=== PATIENT | male | born 1985 | race Two or more races ===

== ENCOUNTER 2024-03-09 18:08 | Emergency (ER) | payer BC, OTHER, SELFPAY ==
[2024-03-09 18:39] VITALS: BP 117/69; PULSE 74; RESP 18; TEMP 36.8; O2SAT 95; BMI 30.7
--- NOTE | 2024-03-09 18:56 | PD.EDRME ---
Rapid Medical Screening Exam [facility] Arrival date/time: 03/09/24 18:08 38M with history of alcoholic cirrhosis presents to ED with first-time paracentesis. Chief Complaint: Abdominal Pain Time Seen by Provider: 03/09/24 18:53 Vital signs: Vital Signs Temperature 98.3 F 03/09/24 18:39 Pulse Rate 74 03/09/24 18:39 Respiratory Rate 18 03/09/24 18:39 Blood Pressure 117/69 03/09/24 18:39 Pulse Oximetry (%) 95 03/09/24 18:39 Oxygen Delivery Method Room Air 03/09/24 18:39
== END 2024-03-09 19:09 | disposition left against medical advice (07) ==
LOC: SERX 19:08
PROVIDERS: Emergency Provider Emergency Medicine
DX: R10.9 Unspecified abdominal pain (principal); Z53.29 Procedure and treatment not carried out because of patient's decision for other reasons
CPT/HCPCS: 99281

== ENCOUNTER 2024-03-10 08:31 | Inpatient (IN) | payer MEDICAID, SELFPAY ==
[2024-03-10] VITALS (16 sets, daily range): BP systolic 105–132; BP diastolic 56–78; PULSE 69–90; RESP 16–97; TEMP 36.6–37.2; O2SAT 91–98; BMI 30.7; BMI 27.5
--- NOTE | 2024-03-10 08:44 | XR_ITS ---
Examination: Ultrasound-guided paracentesis Abdominal sonogram limited Date and time of exam: March 10, 2024 1147 hours INDICATIONS: Cirrhosis, increasing ascites and abdominal distention this week Informed consent provided. A timeout was completed verifying correct patient, procedure, site, positioning, and special adequate movement if applicable. Technique: Multiple sonographic images of the abdomen have been obtained. Appropriate area for paracentesis was marked. Local anesthesia is obtained with 1% lidocaine. Yueh catheter is successfully introduced. Findings: Abdominal sonographic images demonstrate sufficient ascitic fluid for paracentesis. After placing the Yueh catheter, 8600 cc of fluid were successfully removed. During and after completion of the procedure the patient appear in satisfactory and stable condition with no complications observed. Estimated blood loss 0 cc Impression: Abdominal ascites Successful ultrasound-guided paracentesis as described above
--- NOTE | 2024-03-10 08:44 | PD.EDRME ---
Rapid Medical Screening Exam [facility] Arrival date/time: 03/10/24 08:31 38-year-old male with a history of alcoholic liver cirrhosis presents to the emergency room with a chief complaint of shortness of breath, abdominal distention, and generalized swelling x 3 weeks. Patient states he has never had a paracentesis. Chief Complaint: Abdominal Pain Time Seen by Provider: 03/10/24 08:35 Vital signs reviewed by provider: Yes
--- NOTE | 2024-03-10 09:27 | XR_ITS ---
Examination: CT chest with intravenous contrast CT abdomen with intravenous contrast CT pelvis with intravenous contrast 2-D coronal and sagittal reconstructions Time of exam: March 10, 2024 1153 hours INDICATIONS: Chest pain shortness of breath abdominal pain and distention one week CTDI: vol (mGy) : 7.90 DLP: (mGycm): 643 Technique: Multiple axial images of the chest, abdomen and pelvis with intravenous contrast, 3.0 mm slice thickness. Images obtained post intravenous injection Isovue 370 60 cc. 2-D sagittal and coronal reconstructions. Low dose protocols were performed. One or more of the following dose reduction techniques were used; automated exposure control, adjustment of the mA and/or KV according to patient size, use of iterative reconstruction technique. Findings: No thoracic aortic aneurysmal dilatation Pulmonary artery segments are not enlarged. No paratracheal tracheobronchial or bronchopulmonary adenopathy. 4 mm pulmonary nodule right upper lobe image 155 5 mm pulmonary nodule right middle lobe image 176 Significant pneumonia left base. No pulmonary edema Cirrhosis, liver markedly lobular in contour Multiple esophageal varices Perigastric varices Marked splenomegaly with portosystemic collateral vessels medial to the spleen Prominent ascites No pancreatic mass No hydronephrosis Aorta normal size Wall thickening involving small bowel loops Surgical clips right lower abdomen Appendix is not visualized Colonic diverticulosis Wall thickening of the colon No bowel obstruction No prostatomegaly No bladder mass Mild osteopenia IMPRESSION: Noncalcified pulmonary nodules as above, with this study as baseline recommend 6 month follow-up CT chest without contrast Significant left base pneumonia Cirrhosis. Esophageal varices, perigastric varices Prominent ascites Hepatic colopathy, hepatic enteropathy No bowel obstruction
--- NOTE | 2024-03-10 09:30 | PD.EDABDPN ---
ED Abdominal Pain RME/HPI General Chief Complaint: Abdominal Pain Stated complaint: ASCITES; SENT BY [facility] FOR PARACENTISIS Time seen by provider: 03/10/24 08:35 Arrival date/time: 03/10/24 08:31 RME / HPI RME / HPI narrative: 03/10/24 08:31 38-year-old male with a history of alcoholic liver cirrhosis presents to the emergency room with a chief complaint of shortness of breath, abdominal distention, and generalized swelling x 3 weeks. Patient states he has never had a paracentesis. This section includes all my notes and documentations, including HPI, PE, and ED course.? Jesus Carrera MD HPI: 38 year old male who was recently diagnosed with liver cirrhosis 3 weeks ago presents to the ED for complaint of worsening abdominal pain and distention. Accompanied by leg swelling and dyspnea. Has consulted with his PCP at [facility] who diagnosed him with liver cirrhosis and is pending referral to see a liver specialist. Patient denies undergoing any procedures or starting medications since being diagnosed with liver cirrhosis. Denies fevers or chills, chest pain, cough, vomiting, diarrhea, or urinary symptoms. No alcohol for about a month. No other complaints. ROS: All negative except as documented in HPI. Physical Exam: General:? Alert and oriented.? No acute distress when remaining still.?? Eyes:? Conjunctivae and lids clear.? ENT:? No nasal congestion.? Neck:? Supple.? No JVD. Heart:? RRR.? Lungs:? No respiratory distress.? Good air movement with scattered Rales. Abdomen:? Soft and nontender.??Distention noted. No rebound or guarding. Legs:? No clubbing, cyanosis, edema.? Skin:? Warm and dry.?? Neuro:? Alert and oriented X 3.?? I reviewed all diagnostic test results. My review of the CT report is?significant left base pneumonia, cirrhosis, esophageal varices, perigastric varices, prominent ascites Blood tests remarkable for INR 1.9, T. bili 5.7, D bili 3.1. At this point, diagnoses include?Cirrhosis, ascites, pneumonia. Treatment here included?paracentesis, Rocephin, and Zithromax. Some improvement noted. I discussed the case with our GI and hospitalist.? About the presentation and exam and diagnostics and treatments here.? And need of further care in the hospital.? Will accept the patient. Jesus Carrera MD Related Data Previous Rx's ?Medication ?Instructions ?Recorded ibuprofen 800 mg tablet 800 mg PO TID PRN pain #30 tabs 09/27/22 Allergies Allergy/AdvReac Type Severity Reaction Status Date / Time NKA Allergy Unknown Uncoded 03/10/24 08:33 Review of Systems Review of Systems Systems Reviewed: All systems reviewed, normal except as documented Past Medical History Past Medical History CARDIAC: Positive Edema GASTROINTESTINAL: Positive Gastrointestinal Disorders Social History SMOKING STATUS: Never smoker ED Exam Narrative Physical exam: As noted in HPI Course Quality Measures none Orders Category Date Time Status Admit to Inpatient Status Routine Admission 03/10/24 16:05 Active Patient Condition Routine Admission 03/10/24 16:05 Ordered COVID-19 Screening Questionnaire NOW Care 03/10/24 15:[address] Screening NOW Care 03/10/24 09:27 Active Decision to Admit X1 Care 03/10/24 15:40 Completed Intake and Output QSHIFT Care 03/10/24 16:15 Ordered Miscellaneous Nursing Order NOW Care 03/10/24 16:05 Active Notify provider NEEDED Care 03/10/24 16:05 Active Obtain weight NOW Care 03/10/24 16:05 Active Saline [Insert IV] NOW Care 03/10/24 09:27 Active Sequential Compression Device QSHIFT Care 03/10/24 16:05 Active Consult to Gastroenterology Stat Cons 03/10/24 15:[address] chest abdomen pelvis w Stat Exams 03/10/24 09:27 Completed US paracentesis abd w/image Stat Exams 03/10/24 08:44 Taken Amylase Stat Lab 03/10/24 09:54 Completed BMP [Basic Metabolic Panel] Stat Lab 03/10/24 09:54 Completed BNP [B-Type Natriuretic Peptide] Stat Lab 03/10/24 09:54 Completed Basic Metabolic Panel AM DRAW Lab 03/11/24 05:00 Ordered Basic Metabolic Panel AM DRAW Lab 03/12/24 05:00 Ordered Basic Metabolic Panel AM DRAW Lab 03/13/24 05:00 Ordered CBC AM DRAW Lab 03/11/24 05:00 Ordered CBC AM DRAW Lab 03/12/24 05:00 Ordered CBC AM DRAW Lab 03/13/24 05:00 Ordered CBC Stat Lab 03/10/24 09:54 Completed Lipase Stat Lab 03/10/24 09:54 Completed Lipid Panel AM DRAW Lab 03/11/24 05:00 Ordered Liver Panel AM DRAW Lab 03/11/24 05:00 Ordered Liver Panel Stat Lab 03/10/24 09:54 Completed Magnesium AM DRAW Lab 03/11/24 05:00 Ordered Magnesium Stat Lab 03/10/24 09:54 Completed PT [Prothrombin Time with INR] Stat Lab 03/10/24 09:54 Completed PTT [Partial Thromboplastin Time] Stat Lab 03/10/24 09:54 Completed Phosphorous AM DRAW Lab 03/11/24 05:00 Ordered Prothrombin Time with INR AM DRAW Lab 03/11/24 05:00 Ordered Thyroid Stimulating Hormone AM DRAW Lab 03/11/24 05:00 Ordered Urinalysis Routine Lab 03/10/24 16:05 Ordered Acetaminophen Tab [Tylenol Tab] Med 03/10/24 16:04 Active 650 mg PO Q6H PRN Azithromycin Inj [Zithromax Inj] 500 mg Med 03/10/24 13:11 Discontinued Sodium Chloride 0.9% 250 ml [Ns] 250 ml IV X1 Lactulose Syrup [Enulose Syrup] Med 03/10/24 22:00 Active 20 gm PO TID Lidocaine 1% Pf 30 ml [Xylocaine 1% Pf 30 ml] Med 03/10/24 13:20 Discontinued 30 ml .ROUTE .STK-MED ONE Ondansetron Inj [Zofran Inj] Med 03/10/24 16:04 Active 4 mg IV Q6H PRN Pantoprazole Inj [Protonix Inj] Med 03/11/24 09:00 Active 40 mg IVP QDAY cefTRIAXone [Rocephin] 1,000 mg Med 03/10/24 13:11 Discontinued Sodium Chloride 0.9% (P) [Ns 0.9% (P)] 50 ml IV X1 cefTRIAXone/D5w 1gm IV premix [Rocephin/D5w 1gm IV Med 03/10/24 16:08 Discontinued premix] 50 ml IV QDAY Code Status Routine Oth 03/10/24 16:04 Ordered Oxygen Delivery DAILY RT 03/10/24 16:05 Active Vital Signs Vital signs: Vital Signs Temperature 99.0 F 01/30/25 08:46 Pulse Rate 70 03/10/24 08:46 Respiratory Rate 18 03/10/24 08:46 Blood Pressure 118/73 03/10/24 08:46 Pulse Oximetry (%) 95 03/10/24 08:46 Oxygen Delivery Method Room Air 03/10/24 08:46 Pulse ox is 95% on room air which is adequate. Abdominal Pain MDM MDM Narrative MDM Narrative:: Apple Victor am scribing for and in the presence of Dr. Carrera. Patient data External records reviewed:: [facility] previous records (I reviewed ED visit on 09/27/2022) Clinical information provided by:: patient Social determinants that could affect healthcare access:: alcohol use (Former heavy alcohol use, last drank 1 month ago ) Patient has the following chronic illnesses:: Recent diagnosed with liver cirrhosis How is presenting disease/condition affected by chronic disease/condition?: exacerbated by Evaluation data The following diagnostics were reviewed and interpreted by me:: lab results and radiology exam(s) Lab and/or radiology exams considered but not ordered:: None Interpretation Summary: My review of the CT report is?significant left base pneumonia, cirrhosis, esophageal varices, perigastric varices, prominent ascites Medications / Prescriptions Medications or Prescriptions considered but not ordered:: None Medication administrations:: Medication Administration History Acetaminophen (Acetaminophen 325 Mg Tablet) 650 mg PO Q6H PRN PRN Reason: PAIN OR FEVER > 101 Stop: 04/09/24 16:03 Lactulose (Lactulose Syrup 20 Gm/30 Ml Udc) 20 gm PO TID LEBRON; Protocol Stop: 04/09/24 21:59 Ondansetron HCl (Ondansetron Inj 2 Mg/Ml Inj 2 Ml) 4 mg IV Q6H PRN; Protocol PRN Reason: NAUSEA OR VOMITING Stop: 04/09/24 16:03 Pantoprazole Sodium (Pantoprazole Inj 40 Mg Vial) 40 mg IVP QDAY LEBRON Stop: 04/10/24 08:59 Discontinued Medications Ceftriaxone Sodium 1,000 mg/ (Sodium Chloride) 50 mls @ 100 mls/hr IV X1 ONE Stop: 03/10/24 13:40 Last Infusion: 03/10/24 16:01 Dose: Infused Documented By: Admin: 03/10/24 15:17 Dose: 100 mls/hr Documented By: CAROL Azithromycin 500 mg/ Sodium (Chloride) 250 mls @ 250 mls/hr IV X1 ONE Stop: 03/10/24 14:10 Last Admin: 03/10/24 16:01 Dose: 250 mls/hr Documented By: CAROL Ceftriaxone Sodium/Dextrose (Rocephin/D5w 1gm Iv Premix) 50 mls @ 100 mls/hr IV QDAY LEBRON Stop: 03/17/24 16:07 Lidocaine HCl (Lidocaine Inj Pf 1% 30 Ml Vial) Confirm Administered Dose 30 ml .ROUTE .STK-MED ONE Stop: 03/10/24 13:21 Rocephin and Zithromax Consultations Consultation(s) initiated? (list below): Yes Consultation #1 (Physician, Specialty, Details): I spoke with GI Dr. Valdovinos who agrees to consult. Diagnosis Differential diagnosis abdominal pain: acute appendicitis, calculus of kidney, constipation, diverticulitis, gastroenteritis, pancreatitis, small bowel obstruction and other (Ascites, cirrhosis) Most likely diagnosis given after review of the tests above:: Cirrhosis Ascites Pneumonia Admission Indicated Admission indicated?: indicated Explain why admission is indicated or not indicated:: Cirrhosis and ascites and pneumonia Admission Request Was there a request for admission?: Yes Admission Attestation Admission request attestation: Discussed case with Hospitalist service regarding admission. Discussed patients ED course, exam findings, labs, and radiology results. The Hospitalist [agrees,declines] to accept the patient for admission. Disposition Plan Disposition Plan: Admit Discharge Plan Plan Patient Disposition: Admit Acute Care w/in Hospital Prescriptions/Referrals Prescriptions/Med Rec: No Action ibuprofen 800 mg tablet 800 mg PO TID PRN (Reason: pain) Qty: 30 0RF Referrals: Jett Marc PA-C [Primary Care Provider] - In 1 week Problem List Clinical Impression: Cirrhosis, Ascites, Pneumonia Patient/Caregiver Discharge Instructions Education Materials: Paracentesis Dc Print Language: Yi Stand Alone Forms: Nicolette Award Info., Patient Portal Info Letter
[2024-03-10 10:13] LABS: Basophils # (Auto) 0.1 Thou/mm3 (0.0-0.2); Basophils % (Auto) 1 % (0-2.5); Eosinophils # (Auto) 0.2 Thou/mm3 (0.0-0.5); Eosinophils % (Auto) 3 % (0-10); Hematocrit 37.1 % (41.0-53.0); Hemoglobin 12.7 g/dL (13.5-16.0); Immature Granulocytes % (Auto) 0 % (0-0); Immature Granulocytes Auto 0.01 Thou/mm3 (0.00-0.00); Lymphocytes # (Auto) 0.9 Thou/mm3 (1.0-4.8); Lymphocytes % (Auto) 15 % (10-50); Mean Corpuscular HGB Conc 34.2 g/dl (31.0-37.0); Mean Corpuscular Hemoglobin 33.3 pg (25.0-35.0); Mean Corpuscular Volume 97 fL (80-100); Monocytes # (Auto) 0.5 Thou/mm3 (0.0-0.8); Monocytes % (Auto) 9 % (0-12); Neutrophils # (Auto) 4.3 Thou/mm3 (1.8-7.7); Neutrophils % (Auto) 72 % (37-80); Nucleated Red Blood Cell % 0 /100 WBC (0); RDW Standard Deviation 56.9 fL (35.1-43.9); Red Blood Count 3.81 Miln/mm3 (4.50-5.90)
[2024-03-10 10:14] LABS: Platelet Count 68 Thou/mm3 (140-440)
--- NOTE | 2024-03-10 10:18 | PC.NURSE ---
Patient presents to ED with c/o RUQ abd pain and swelling with some difficulty breathing with ambulation x4days. Patient was seen by PCP at [facility] and was sent for further evaluation. Patient with spouse, ambulates without assist, abd distended, soft and round with bowel sounds x4. 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
[2024-03-10 10:26] LABS: INR 1.9 (0.9-1.3); Partial Thromboplastin Time 33.2 Seconds (22.0-36.0); Prothrombin Time 19.4 Seconds (9.0-12.2)
[2024-03-10 10:32] LABS: B-Type Natriuretic Peptide 39 pg/mL (0-100)
[2024-03-10 10:42] LABS: Alanine Aminotransferase 29 U/L (10-49); Albumin, Serum 2.7 gm/dL (3.5-5.0); Alkaline Phosphatase 129 U/L (46-116); Amylase 73 U/L (30-118); Anion Gap 8 (7-16); Aspartate Amino Transferase 56 U/L (0-34); BUN/Creatinine Ratio 12 Ratio (12-20); Bilirubin,Direct 3.1 mg/dL (0.0-0.3); Bilirubin,Total 5.7 mg/dL (0.3-1.2); Blood Urea Nitrogen 6 mg/dL (9-23); Calcium 8.1 mg/dL (8.3-10.6); Carbon Dioxide 25.8 mMol/L (20.0-31.0); Chloride 101 mMol/L (98-107); Creatinine (Component) 0.5 mg/dL (0.6-1.3); Estimated Creatinine Clearance 210.2 mL/min (>60); Glucose 86 mg/dL (74-106); Lipase 49 U/L (12-53); Magnesium 1.8 mg/dL (1.6-2.6); Osmolality,Calculated 266 (275-295); Potassium 3.9 mMol/L (3.4-5.1); Sodium 135 mMol/L (136-145); Total Protein 6.8 gm/dL (5.7-8.2); eGFR > 60 See Note
[2024-03-10 12:11] LABS: Slide Review Platelets confirmed
--- NOTE | 2024-03-10 13:46 | PC.NURSE ---
Patient to US for paracentesis.
[2024-03-10] MEDS: cefTRIAXone 1,000 MG in SODIUM CHLORIDE 0.9% (P) 50 ML 100 MG IV (15:17)
[2024-03-10] MEDS: AZITHROMYCIN INJ 500 MG in SODIUM CHLORIDE 0.9% 250 ML 250 ML 250 MG IV (16:01)
--- NOTE | 2024-03-10 16:55 | ESHP_ITS ---
Documentation for date of: 03/10/24 [facility] History of Present Illness History of present illness: Mr. Anderson is a 38-year-old male with no significant past medical history. Patient's is at bedside who stated that she noticed yellowing of the patient's eyes and skin for the past 1 year. And patient has been having increasing shortness of breath for the past 1 week along with progressively worsening abdominal distention which started 3 weeks ago. Patient's swelling started at the feet and went all the way up to the bellybutton patient stated he made an appointment with his primary care physician because initially he thought he was bloated until he noticed swelling in his legs. Patient states he has been drinking 6 pack of beer daily for many years. And denies prior history of similar symptoms. Patient denies any chest pain, nausea, vomiting, hematemesis, melena or hematochezia. Patient states he did notice whenever he would drink a lot he would have diarrhea however since he has not had any alcohol for the past 1 month he noticed the diarrhea has resolved. Patient's last bowel movement was today. Patient denies any cough, fever, chills or any recent weight loss. ED course: In the ED patient's blood pressure is 118/73, pulse 70, respiration 18, hemoglobin 12.7, hematocrit 37.1, platelet count 68, PT 19.4, INR 1.7, total bilirubin 5.7, direct bilirubin 3.1, AST 56 ALT 29, alkaline phosphatase 129, albumin 2.[address] CT [address]/abdomen/pelvis: 4 mm pulmonary nodule right upper lobe, 5 mm pulmonary nodule right middle lobe, Significant pneumonia left base.Cirrhosis, liver markedly lobular in contour, Multiple esophageal varices, Perigastric varices, Marked splenomegaly with portosystemic collateral vessels medial to the spleen, Prominent ascites Abdominal paracentesis is done 5 L of fluid is removed PMH: None PSH: Appendectomy SH: Patient smokes marijuana daily, denies tobacco use, and drinks alcohol daily (last drink was 1 month ago) Home Meds: None Review of Systems Review of Systems Systems Reviewed: All systems reviewed, normal except as documented Exam Vital Signs Temp Pulse Resp BP Pulse Ox O2 Del Method 98.0 F 74 18 121/67 97 Room Air 03/10/24 15:24 03/10/24 16:29 03/10/24 16:29 03/10/24 15:24 03/10/24 15:24 03/10/24 15:24 Narrative Exam GENERAL: A&Ox3 . Awake, Not in acute distress NEURO: no focal neurological deficits HEENT: Atraumatic, Normocephalic. mucous membranes moist. Eyes open, symmetrical, & clear HEART: Normal Heart Sounds LUNGS: Clear to auscultation with no wheezing or crackles. ABDOMEN: soft, mildly distended s/p paracentesis, mildy tender, bowel sounds heard, no guarding or rebound tenderness SKIN: Scleral and skin icterus, no Rash or ecchymoses EXTREMITIES: No edema, tenderness, able to move all 4 extremities, pedal pulses palpated Results: Labs 03/11/24 05:12 03/11/24 05:12 Labs: Short CBC 03/10/24 Range/Units 09:54 WBC 6.0 (3.8-10.6) Thou/mm3 Hgb 12.7 L (13.5-16.0) g/dL Hct 37.1 L (41.0-53.0) % Plt Count 68 L (140-440) Thou/mm3 BMP 03/10/24 09:54 Sodium 135 L Potassium 3.9 Chloride 101 Carbon Dioxide 25.8 BUN 6 L Creatinine 0.5 L Glucose 86 Calcium 8.1 L Liver Function 03/10/24 Range/Units 09:54 Total Bilirubin 5.7 H (0.3-1.2) mg/dL Direct Bilirubin 3.1 H (0.0-0.3) mg/dL AST 56 H (0-34) U/L ALT 29 (10-49) U/L Alkaline Phosphatase 129 H (46-116) U/L Albumin 2.7 L (3.5-5.0) gm/dL Quality Measures Quality Measures none Medications Home Medications and Allergies Allergies Allergy/AdvReac Type Severity Reaction Status Date / Time No Known Allergies Allergy Unverified 03/11/24 08:40 Visit Medications Acetaminophen (Acetaminophen 325 Mg Tablet) 650 mg PO Q6H PRN PRN Reason: PAIN OR FEVER > 101 Stop: 04/09/24 16:03 Lactulose (Lactulose Syrup 20 Gm/30 Ml Udc) 20 gm PO TID LEBRON; Protocol Stop: 04/09/24 21:59 Ondansetron HCl (Ondansetron Inj 2 Mg/Ml Inj 2 Ml) 4 mg IV Q6H PRN; Protocol PRN Reason: NAUSEA OR VOMITING Stop: 04/09/24 16:03 Pantoprazole Sodium (Pantoprazole Inj 40 Mg Vial) 40 mg IVP QDAY [facility] Stop: 04/10/24 08:59 Discontinued Medications Ceftriaxone Sodium 1,000 mg/ (Sodium Chloride) 50 mls @ 100 mls/hr IV X1 ONE Stop: 03/10/24 13:40 Last Infusion: 03/10/24 16:01 Dose: Infused Azithromycin 500 mg/ Sodium (Chloride) 250 mls @ 250 mls/hr IV X1 ONE Stop: 03/10/24 14:10 Last Admin: 03/10/24 16:01 Dose: 250 mls/hr Ceftriaxone Sodium/Dextrose (Rocephin/D5w 1gm Iv Premix) 50 mls @ 100 mls/hr IV QDAY [facility] Stop: 03/17/24 16:07 Assessment & Plan Plan Mr. Anderson is a 38-year-old male with no significant past medical history. Patient is admitted to the hospital for decompensated cirrhosis secondary to alcohol abuse. #decompensated cirrhosis 2/2 alcohol #Ascites #Hyperbilirubinemia #Hypoalbuminemia #thrombocytopenia #coagulopathy -Pt endorses to drinking 6 pack of beer daily, patient's last drink was approximately 1 month ago. - noticed scleral and skin jaundice for approximately a year -Patient denies hematemesis, nausea or vomiting, patient also denies melena or hematochezia -CT abdomen/pelvis: Cirrhosis, Esophageal varices, perigastric varices, Prominent ascites, Hepatic colopathy, hepatic enteropathy -MELD score 20pts (19.6 % estimated 90-day mortality), Child-Moore Class C -AST 56 ALT 29, T.bili 5.7 and direct parish 3.1 -Liver U/S ordered, f/u -IV Ceftriaxone for SBP ppx 03/10- -Lactulose 3 times daily -Ascites IR paracentesis done- 5L fluid removed 03/10, will repeat as needed -GI consulted, appreciate recommendations -Monitoring CMP #L. 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 Diamond & attending physician Dr. Javon Mathur (PGY-1)- Internal medicine resident Senior resident attestation: Patient evaluated and examined at the bedside, plan of care discussed with rest of the team including my attending physician, except as noted. Dara PGY2 Attending Provider Attestation/Addendum IKemi DO, attest that I was physically present for the watson portions of the service and evaluated the patient with the resident and I reviewed and discussed the case with the resident and agree with the resident's findings and plans of care as documented above Patient is a 78-year-old male with past medical history of chronic alcohol use who presented to the ED with worsening shortness of breath and abdominal distention for the past 3 weeks. Patient states that he had stopped drinking about a month ago. He had also been noticed to have yellowing of skin. Patient drinks about a sixpack of beer since the age of 14. He denies any history of withdrawals or seizures after cessation of alcohol use. Patient underwent diagnostic paracentesis today during which 5 L of fluid was removed. Patient reports improvement of abdominal distention, pain and discomfort. He also reports resolution of his shortness of breath. GI was consulted from ED and recommends admission for diagnostic EGD. Will admit patient [facility] for further workup and medical management of decompensated cirrhosis. Will place on clear liquid diet and plan for endoscopy in a.m. Will start on Rocephin for SBP prophylaxis. Patient was advised and counseled regarding fluid restriction and low-sodium diet moving forward. Will give albumin for volume repletion after large-volume paracentesis. Will start diuretics in AM.
[2024-03-10] MEDS: ALBUMIN HUMAN 25% IVPB 25 GM/100 ML BTL IV (18:13)
[2024-03-10 18:33] LABS: Hepatitis A Antibody IgM Non Reactive (Non React); Hepatitis B Core Antibody IgM Non Reactive (Non React); Hepatitis B Surface Antigen Non Reactive (Non React); Hepatitis C Antibody Non Reactive (Non React)
[2024-03-10 18:50] LABS: Alcohol, Blood Medical < 3.0 mg/dL (0-10.0)
--- NOTE | 2024-03-10 19:45 | PC.NURSE ---
Pt Awake, GCS 15. no complaints at this time.
[2024-03-10 21:11] LABS: Collection Type, Urine Clean Catch
--- NOTE | 2024-03-10 21:36 | PC.NURSE ---
Report called to jose [place]
--- NOTE | 2024-03-10 21:44 | PD.IMCONS ---
HPI Data of Consult Requesting Physician: Kemi Alejandro DO Primary Care Provider: Jett Marc PA-C Consult Narrative Reason for consult: Decompensated liver disease presents for intractable ascites History of present illness: 38 years old male being asked by the ER physician to evaluate the patient for intractable ascites in the setting of chronic liver disease acutely decompensated Requiring ultrasound-guided paracentesis, 8600 cc was removed today Patient drinks about 6 beers a day and has not drank for [address] scan of the chest and abdomen with contrast showed left base pneumonia esophageal varices and perigastric varices and ascites CBC shows a hemoglobin hematocrit of 12.7 and 37 1 with a platelet count of 68,000 and pro time INR at 1.9 Liver panel shows a total bili of 5.7 AST ALT 56 and 29 alk phos of 129 BUN/creatinine is 6 and 0.5 cc:: cc: Kemi Alejandro DO Review of Systems Review of Systems Systems Reviewed: All systems reviewed, normal except as documented Past Medical History Surgical History OTHER SURGICAL HX: As in the history of present illness Meds Home Medications and Allergies Allergies Allergy/AdvReac Type Severity Reaction Status Date / Time NKA Allergy Unknown Uncoded 03/10/24 08:33 Exam Vital Signs Temp Pulse Resp BP Pulse Ox O2 Del Method 98.6 F 90 18 112/66 95 Nasal Cannula 03/10/24 18:18 03/10/24 18:18 03/10/24 18:18 03/10/24 21:00 03/10/24 21:00 03/10/24 18:18 Constitutional Comments: Chronically ill-appearing and icteric Routine Respiratory Exam Comments: Normal to auscultation Routine Abdominal Exam Comments: Positive for ascites Results Labs 03/10/24 09:54 03/10/24 09:54 Labs: Short CBC 03/10/24 Range/Units 09:54 WBC 6.0 (3.8-10.6) Thou/mm3 Hgb 12.7 L (13.5-16.0) g/dL Hct 37.1 L (41.0-53.0) % Plt Count 68 L (140-440) Thou/mm3 BMP 03/10/24 09:54 Sodium 135 L Potassium 3.9 Chloride 101 Carbon Dioxide 25.8 BUN 6 L Creatinine 0.5 L Glucose 86 Calcium 8.1 L Liver Function 03/10/24 Range/Units 09:54 Total Bilirubin 5.7 H (0.3-1.2) mg/dL Direct Bilirubin 3.1 H (0.0-0.3) mg/dL AST 56 H (0-34) U/L ALT 29 (10-49) U/L Alkaline Phosphatase 129 H (46-116) U/L Albumin 2.7 L (3.5-5.0) gm/dL Assessment and Plan Additional Assessment & Plan Additional Plan: # Acutely decompensated chronic liver disease secondary to alcohol with coagulopathy and thrombocytopenia # Advanced portal hypertension with intractable ascites # Detail edema # Esophageal and perigastric varices suggestions 2 g sodium diet recommend dietary consultation for that as it is extremely difficult to do 1 L p.o. fluid striction in 24 hours Lasix 40 mg IV push daily Spironolactone 25 mg p.o. twice daily Metolazone 5 milligram p.o. daily N.p.o. midnight tonight for an upper endoscopy tomorrow to prophylactically band ligated esophageal varices to improve his morbidity and mortality from GI bleed Emphasized complete abstain from alcohol advised to join AA thank you for the opportunity to participate in the care of this patient
[2024-03-10 21:48] LABS: Bilirubin,Urine 1+ (Negative); Blood,Urine Negative (Negative); Clarity,Urine Clear (Clear/Hazy); Color,Urine Drk-Yellow (Lt Yel-Yel); Glucose, Urine Negative (Negative); Ketones,Urine Negative (Negative); Leukocyte Esterase,Urine Negative (Negative); Nitrite,Urine Negative (Negative); Protein,Urine Trace (Neg - Trace); RBC,Urine 9 /hpf (0-3); Specific Gravity,Urine 1.048 (1.001-1.035); Squamous Epithelial Cell,Urine 1 /hpf (0-5); WBC,Urine 8 /hpf (0-5)
[2024-03-10] MEDS: SPIRONOLACTONE 25 MG TABLET PO (23:07)
[2024-03-10] MEDS: LACTULOSE SYRUP 20 GM/30 ML UDC PO (23:07)
[2024-03-11] VITALS (20 sets, daily range): BP systolic 100–123; BP diastolic 58–71; PULSE 63–101; RESP 16–96; TEMP 36.3–36.6; O2SAT 95–99; BMI 27.3
[2024-03-11 05:36] LABS: Basophils # (Auto) 0.1 Thou/mm3 (0.0-0.2); Basophils % (Auto) 1 % (0-2.5); Eosinophils # (Auto) 0.3 Thou/mm3 (0.0-0.5); Eosinophils % (Auto) 6 % (0-10); Hematocrit 32.2 % (41.0-53.0); Hemoglobin 11.5 g/dL (13.5-16.0); Immature Granulocytes % (Auto) 0 % (0-0); Immature Granulocytes Auto 0.02 Thou/mm3 (0.00-0.00); Lymphocytes # (Auto) 0.9 Thou/mm3 (1.0-4.8); Lymphocytes % (Auto) 17 % (10-50); Mean Corpuscular HGB Conc 35.7 g/dl (31.0-37.0); Mean Corpuscular Hemoglobin 33.8 pg (25.0-35.0); Mean Corpuscular Volume 95 fL (80-100); Monocytes # (Auto) 0.5 Thou/mm3 (0.0-0.8); Monocytes % (Auto) 9 % (0-12); Neutrophils # (Auto) 3.6 Thou/mm3 (1.8-7.7); Neutrophils % (Auto) 67 % (37-80); Nucleated Red Blood Cell % 0 /100 WBC (0); RDW Standard Deviation 54.8 fL (35.1-43.9); White Blood Count 5.3 Thou/mm3 (3.8-10.6)
[2024-03-11 05:45] LABS: Platelet Count 75 Thou/mm3 (140-440)
[2024-03-11 05:46] LABS: INR 2.1 (0.9-1.3); Prothrombin Time 21.9 Seconds (9.0-12.2); Slide Review Platelets confirmed
[2024-03-11 06:16] LABS: Alanine Aminotransferase 26 U/L (10-49); Albumin, Serum 2.4 gm/dL (3.5-5.0); Alkaline Phosphatase 99 U/L (46-116); Anion Gap 7 (7-16); Aspartate Amino Transferase 50 U/L (0-34); BUN/Creatinine Ratio 14 Ratio (12-20); Bilirubin,Direct 2.9 mg/dL (0.0-0.3); Bilirubin,Total 4.9 mg/dL (0.3-1.2); Blood Urea Nitrogen 7 mg/dL (9-23); Carbon Dioxide 25.7 mMol/L (20.0-31.0); Cardiac Risk Estimate 5.8 RATIO (4.0-6.7); Chloride 106 mMol/L (98-107); Cholesterol 93 mg/dL (132-200); Creatinine (Component) 0.5 mg/dL (0.6-1.3); Glucose 82 mg/dL (74-106); HDL Cholesterol 16 mg/dL (40-60); LDL Cholesterol,Calculated 65 mg/dL (0-130); Magnesium 1.7 mg/dL (1.6-2.6); Osmolality,Calculated 274 (275-295); Phosphorous 3.6 mg/dL (2.4-5.1); Potassium 3.8 mMol/L (3.4-5.1); Sodium 139 mMol/L (136-145); Thyroid Stimulating Hormone 2.25 uIU/mL (0.55-4.78); Total Protein 5.6 gm/dL (5.7-8.2); Triglycerides 59 mg/dL (30-150); eGFR > 60 See Note
[2024-03-11] MEDS: FUROSEMIDE INJ 10 MG/ML 4ML VIAL 40 MG IVP (09:27)
[2024-03-11] MEDS: cefTRIAXone/D5w 1gm IV premix 50 ML IV (09:27)
[2024-03-11] MEDS: PANTOPRAZOLE INJ 40 MG VIAL IVP (09:28)
[2024-03-11] MEDS: Magnesium Sulfate 2 GM Ivpb 2 GM/50 ML BAG IV (11:08)
--- NOTE | 2024-03-11 12:14 | PC.SS ---
Follow up note: EGD today with Dr. Valdovinos
--- NOTE | 2024-03-11 12:49 | PC.SS ---
SS met with patient regarding his d/c plan.? Pt is alert/oriented.? Pt was admitted for Abdominal Distension.? Pt confirmed demographic and contact information is correct on facesheet.? Pt resides with and son.? Pt ambulates independently without assistance or DME.? Pt is ok with all ADLs.? 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 Patient?s pharmacy of choice is [facility].? Pt named his , Mary Mckeon medical decision maker if he is unable.? Patient?s choice is to return home upon d/c.? Pt states not diabetic and is not on dialysis.? Pt followed up with PCP on Thursday03-09-24. D/C plan:? Return home Next of Kin:? Gaurav Mckeon, , phone# [phone] PCP:? Dr. Jett Marc from [facility] Address:? Correct on facesheet
[2024-03-11 14:26] LABS: Cocci Serology, IgM Negative (Negative)
--- NOTE | 2024-03-11 15:09 | ESPR_ITS ---
Documentation for date of: 03/11/24 Senior resident attestation: Patient is a 38-year-old male with a past medical history of alcohol abuse, who presented to ER with abdominal distention and shortness of breath for the past few weeks, patient reported he quit drinking almost 1 month ago, reported drinking 6 pack beer for the past 2 decades, negative viral serology on Acute hepatitis panel, noted to have massive ascites, cirrhotic liver on abdominal imaging. Ultrasound-guided paracentesis was done, 5 L fluid was removed, patient did not have fever or abdominal tenderness, no concerns for infection, likely ascites secondary to cirrhosis and portal hypertension. GI consulted Dr. Valdovinos is placed, pending diagnostic EGD. #Decompensated cirrhosis #Ascites s/p paracentesis?5 L acetic fluid was drained, started on spironolactone and furosemide. #Concern for esophageal varices?pending EGD, denied dark stools or hematemesis. Patient evaluated and examined at the bedside, plan of care discussed with rest of the team including my attending physician, except as noted. Quresh PGY2 Subjective Subjective Interval history: 03/11: no acute overnight events. Pt is seen and examined bedside. Pts and parents are bedside. Pt is NPO currently to undergo EGD today. Pt denies SOB, abdominal pain. Pt states he has had 3-4 bowel movements since admission. Denies Nausea or vomitting. PT 21.9, INR 2.1. Pt has no other complaints. Exam Vital Signs Temp Pulse Resp BP Pulse Ox O2 Del Method 97.7 F 63 18 108/66 96 Room Air 03/11/24 12:00 03/11/24 12:03/11/24 12:00 03/11/24 12:00 03/11/24 12:03/11/24 12:00 Narrative Exam GENERAL: A&Ox3 . Awake, Not in acute distress NEURO: no focal neurological deficits HEENT: Atraumatic, Normocephalic. mucous membranes moist. Eyes open, symmetrical, & clear HEART: Normal Heart Sounds LUNGS: Clear to auscultation with no wheezing or crackles. ABDOMEN: soft, mildly distended s/p paracentesis, mildy tender, bowel sounds heard, no guarding or rebound tenderness SKIN: Scleral and skin icterus, no Rash or ecchymoses EXTREMITIES: No edema, tenderness, able to move all 4 extremities, pedal pulses palpated Objective Labs 03/11/24 05:12 03/11/24 05:12 Labs: Laboratory Results - last 24 hr 03/10/24 03/10/24 03/10/24 09:54 17:44 20:56 WBC RBC Hgb Hct MCV MCH MCHC RDW Std Deviation Plt Count Neut % (Auto) Lymph % (Auto) [place] % (Auto) Eos % (Auto) Baso % (Auto) Neut # (Auto) Lymph # (Auto) [place] # (Auto) Eos # (Auto) Baso # (Auto) Immature Gran # (Auto) Absolute Nucleated RBC Immature Gran % Nucleated RBC % PT INR Sodium Potassium Chloride Carbon Dioxide Anion Gap BUN Creatinine Estim Creat Clear Calc eGFR BUN/Creatinine Ratio Glucose Calculated Osmolality Calcium Phosphorus Magnesium Total Bilirubin Direct Bilirubin AST ALT Alkaline Phosphatase Total Protein Albumin Triglycerides Cholesterol LDL Cholesterol, Calc HDL Cholesterol Cholesterol/HDL Ratio TSH Ur Collection Type Clean Catch Urine Color Drk-Yellow A Urine Clarity Clear Urine pH 6.0 Ur Specific [place] 1.048 H Urine Protein Trace Urine Glucose (UA) Negative Urine Ketones Negative Urine Blood Negative Urine Nitrite Negative Urine Bilirubin 1+ A Urine Urobilinogen (Auto) 3.0 Ur Leukocyte Esterase Negative Urine RBC 9 H Urine WBC 8 H Ur Squamous Epith Cells 1 Urine Bacteria None Ethyl Alcohol < 3.0 Coccidioides IgM Ab Negative Hepatitis A IgM Ab Non Reactive Hep Bs Antigen Non Reactive Hep B Core IgM Ab Non Reactive Hepatitis C Antibody Non Reactive Misc Test Result 03/11/24 05:12 WBC 5.3 RBC 3.40 L Hgb 11.5 L Hct 32.2 L MCV 95 MCH 33.8 MCHC 35.7 RDW Std Deviation 54.8 H Plt Count 75 L Neut % (Auto) 67 Lymph % (Auto) 17 [place] % (Auto) 9 Eos % (Auto) 6 Baso % (Auto) 1 Neut # (Auto) 3.6 Lymph # (Auto) 0.9 L [place] # (Auto) 0.5 Eos # (Auto) 0.3 Baso # (Auto) 0.1 Immature Gran # (Auto) 0.02 H Absolute Nucleated RBC 0.00 Immature Gran % 0 Nucleated RBC % 0 PT 21.9 H INR 2.1 H Sodium 139 Potassium 3.8 Chloride 106 Carbon Dioxide 25.7 Anion Gap 7 BUN 7 L Creatinine 0.5 L Estim Creat Clear Calc 200.0 eGFR > 60 BUN/Creatinine Ratio 14 Glucose 82 Calculated Osmolality 274 L Calcium 8.0 L Phosphorus 3.6 Magnesium 1.7 Total Bilirubin 4.9 H D Direct Bilirubin 2.9 H AST 50 H ALT 26 Alkaline Phosphatase 99 D Total Protein 5.6 L Albumin 2.4 L Triglycerides 59 Cholesterol 93 L LDL Cholesterol, Calc 65 HDL Cholesterol 16 L Cholesterol/HDL Ratio 5.8 TSH 2.25 Ur Collection Type Urine Color Urine Clarity Urine pH Ur Specific [place] Urine Protein Urine Glucose (UA) Urine Ketones Urine Blood Urine Nitrite Urine Bilirubin Urine Urobilinogen (Auto) Ur Leukocyte Esterase Urine RBC Urine WBC Ur Squamous Epith Cells Urine Bacteria Ethyl Alcohol Coccidioides IgM Ab Hepatitis A IgM Ab Hep Bs Antigen Hep B Core IgM Ab Hepatitis C Antibody Misc Test Result Platelets confirmed Quality Measures Quality Measures none Assessment & Plan Assessment Current Active Medications: Generic Name Dose Route Start Last Admin Trade Name Freq PRN Reason Stop Dose Admin Acetaminophen 650 mg 03/10/24 16:04 Acetaminophen 325 Mg Tablet PO 04/09/24 16:03 Q6H PRN PAIN OR FEVER > 101 Furosemide 40 mg 03/11/24 09:00 03/11/24 09:27 Furosemide Inj 10 Mg/Ml 4ml Vial IVP 04/10/24 08:59 40 mg QDAY LEBRON Administration Ceftriaxone Sodium/Dextrose 50 mls @ 100 mls/hr 03/11/24 09:00 03/11/24 09:27 Rocephin/D5w 1gm Iv Premix IV 03/18/24 08:59 100 mls/hr QDAY LEBRON Administration Lactulose 20 gm 03/10/24 22:00 03/11/24 13:33 Lactulose Syrup 20 Gm/30 Ml Udc PO 04/09/24 21:59 Not Given TID LEBRON Protocol Metolazone 5 mg 03/11/24 09:00 03/11/24 09:19 Metolazone 2.5 Mg Tablet PO 04/10/24 08:59 Not Given QDAY LEBRON Ondansetron HCl 4 mg 03/10/24 16:04 Ondansetron Inj 2 Mg/Ml Inj 2 Ml IV 04/09/24 16:03 Q6H PRN NAUSEA OR VOMITING Protocol Pantoprazole Sodium 40 mg 03/11/24 09:00 03/11/24 09:28 Pantoprazole Inj 40 Mg Vial IVP 04/10/24 08:59 40 mg QDAY LEBRON Administration Spironolactone 25 mg 03/10/24 22:00 03/11/24 09:20 Spironolactone 25 Mg Tablet PO 04/09/24 21:59 Not Given BID LEBRON Plan Mr. Anderson is a 38-year-old male with no significant past medical history. Patient is admitted to the hospital for decompensated cirrhosis secondary to alcohol abuse. #decompensated cirrhosis 2/2 alcohol #Ascites #Hyperbilirubinemia #Hypoalbuminemia #thrombocytopenia #coagulopathy -Pt endorses to drinking 6 pack of beer daily, patient's last drink was approximately 1 month ago. - noticed scleral and skin jaundice for approximately a year -Patient denies hematemesis, nausea or vomiting, patient also denies melena or hematochezia -CT abdomen/pelvis: Cirrhosis, Esophageal varices, perigastric varices, Prominent ascites, Hepatic colopathy, hepatic enteropathy -MELD score 20pts (19.6 % estimated 90-day mortality), Child-Moore Class C -AST 56 ALT 29, T.bili 5.7 and direct [place] 3.1 -Liver U/S ordered, f/u -IV Ceftriaxone for SBP ppx 03/10- -Lactulose 3 times daily -Ascites IR paracentesis done- 5L fluid removed 03/10, will repeat as needed -GI consulted, appreciate recommendations -Monitoring CMP #L. 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 Diamond & attending physician Dr. Javon Mathur (PGY-1)- Internal medicine resident Attending Provider Attestation/Addendum I, Kemi Alejandro DO, attest that I was physically present for the watson portions of the service and evaluated the patient with the resident and I reviewed and discussed the case with the resident and agree with the resident's findings and plans of care as documented above Patient seen and evaluated this AM. Patient states he is feeling well and less bloated. Counselled patient with at bedside this morning regarding low sodium diet, fluid restrictions and close f/u with PCP and GI. Strict abstinence from alcohol use was emphasized as well. EGD scheduled for this evening.Will f/u results and anticipate DC within next 24h.
--- NOTE | 2024-03-11 17:56 | SUR.PHASEI ---
173 patient is drowsy, arousable, breathing unlabored, s/p EGD by Dr. Valdovinos, report received from Argelia QUINTANA
--- NOTE | 2024-03-11 18:10 | SUR.PHASEI ---
1809 patient is sleepy and arousable, breathing unlabored, patient able to open eyes, make conversation, follow commands then goes back to sleep. Report given to Jena QUINTANA, patient transferred back to room 371
[2024-03-11] MEDS: OCTREOTIDE ACET INJ 50 mCg/ML VIAL IV (18:40)
[2024-03-11] MEDS: OCTREOTIDE ACET INJ 1,000 MCG in SODIUM CHLORIDE 0.9% 100 ML 5.1 MCG IV (18:41)
[2024-03-11] MEDS: LACTULOSE SYRUP 20 GM/30 ML UDC PO (21:53)
[2024-03-11] MEDS: SPIRONOLACTONE 25 MG TABLET PO (21:54)
[2024-03-12] VITALS (11 sets, daily range): BP systolic 96–122; BP diastolic 59–73; PULSE 60–84; RESP 16–96; TEMP 36.2–37.1; O2SAT 93–96
[2024-03-12] MEDS: LACTULOSE SYRUP 20 GM/30 ML UDC PO ×2 (05:08→14:03)
[2024-03-12 06:10] LABS: Basophils # (Auto) 0.1 Thou/mm3 (0.0-0.2); Basophils % (Auto) 1 % (0-2.5); Eosinophils # (Auto) 0.3 Thou/mm3 (0.0-0.5); Eosinophils % (Auto) 6 % (0-10); Hematocrit 33.7 % (41.0-53.0); Hemoglobin 11.9 g/dL (13.5-16.0); Immature Granulocytes % (Auto) 0 % (0-0); Immature Granulocytes Auto 0.01 Thou/mm3 (0.00-0.00); Lymphocytes # (Auto) 0.9 Thou/mm3 (1.0-4.8); Lymphocytes % (Auto) 16 % (10-50); Mean Corpuscular HGB Conc 35.3 g/dl (31.0-37.0); Mean Corpuscular Hemoglobin 34.2 pg (25.0-35.0); Mean Corpuscular Volume 97 fL (80-100); Monocytes # (Auto) 0.5 Thou/mm3 (0.0-0.8); Monocytes % (Auto) 8 % (0-12); Neutrophils # (Auto) 3.8 Thou/mm3 (1.8-7.7); Neutrophils % (Auto) 69 % (37-80); Nucleated Red Blood Cell % 0 /100 WBC (0); RDW Standard Deviation 57.1 fL (35.1-43.9); Red Blood Count 3.48 Miln/mm3 (4.50-5.90); White Blood Count 5.5 Thou/mm3 (3.8-10.6)
[2024-03-12 06:23] LABS: Platelet Count 48 Thou/mm3 (140-440); Slide Review Platelets confirmed
[2024-03-12 06:25] LABS: Anion Gap 6 (7-16); BUN/Creatinine Ratio 15 Ratio (12-20); Blood Urea Nitrogen 9 mg/dL (9-23); Carbon Dioxide 27.4 mMol/L (20.0-31.0); Chloride 105 mMol/L (98-107); Creatinine (Component) 0.6 mg/dL (0.6-1.3); Estimated Creatinine Clearance 166.7 mL/min (>60); Glucose 131 mg/dL (74-106); Osmolality,Calculated 276 (275-295); Sodium 138 mMol/L (136-145); eGFR > 60 See Note
[2024-03-12] MEDS: cefTRIAXone/D5w 1gm IV premix 50 ML IV (09:47)
[2024-03-12] MEDS: FUROSEMIDE INJ 10 MG/ML 4ML VIAL 40 MG IVP (09:47)
[2024-03-12] MEDS: metOLazone 2.5 MG TABLET 5 MG PO (09:48)
[2024-03-12] MEDS: SPIRONOLACTONE 25 MG TABLET PO ×2 (09:48→21:04)
[2024-03-12] MEDS: PANTOPRAZOLE INJ 40 MG VIAL IVP (09:48)
[2024-03-12] MEDS: OCTREOTIDE ACET INJ 1,000 MCG in SODIUM CHLORIDE 0.9% 100 ML 5.1 MCG IV (14:04)
--- NOTE | 2024-03-12 14:26 | ESPR_ITS ---
Documentation for date of: 03/12/24 Subjective Subjective Interval history: Overnight events, labs reviewed. The patient examined this a.m. at bedside. The patient has no active complaints. Counselled extensively for alchohol abstinenece , pt is s/p variceal band ligation, per dr Valdovinos started on iv octreotide, pt will need 5 days of iv octreotide. Exam Vital Signs Temp Pulse Resp BP Pulse Ox O2 Del Method O2 Flow Rate 98.2 F 72 16 122/73 93 L Room Air 3 03/12/24 12:03/12/24 12:03/12/24 12:03/12/24 12:03/12/24 12:03/12/24 12:03/11/24 17:25 Narrative Exam GENERAL: A&Ox3 . Awake, Not in acute distress NEURO: no focal neurological deficits HEENT: Atraumatic, Normocephalic. mucous membranes moist. Eyes open, symmetrical, & clear HEART: Normal Heart Sounds LUNGS: Clear to auscultation with no wheezing or crackles. ABDOMEN: soft, mildly distended s/p paracentesis, mildy tender, bowel sounds heard, no guarding or rebound tenderness SKIN: Scleral and skin icterus, no Rash or ecchymoses EXTREMITIES: No edema, tenderness, able to move all 4 extremities, pedal pulses palpated Objective Labs 03/13/24 04:48 03/13/24 04:48 Labs: Laboratory Results - last 24 hr 03/10/24 03/12/24 17:44 05:06 WBC 5.5 RBC 3.48 L Hgb 11.9 L Hct 33.7 L MCV 97 MCH 34.2 MCHC 35.3 RDW Std Deviation 57.1 H Plt Count 48 L D Neut % (Auto) 69 Lymph % (Auto) 16 [facility] % (Auto) 8 Eos % (Auto) 6 Baso % (Auto) 1 Neut # (Auto) 3.8 Lymph # (Auto) 0.[address] [facility] # (Auto) 0.5 Eos # (Auto) 0.3 Baso # (Auto) 0.1 Immature Gran # (Auto) 0.01 H Absolute Nucleated RBC 0.00 Immature Gran % 0 Nucleated RBC % 0 Sodium 138 Potassium 4.0 Chloride 105 Carbon Dioxide 27.4 Anion Gap 6 L BUN 9 Creatinine 0.6 Estim Creat Clear Calc 166.7 eGFR > 60 BUN/Creatinine Ratio 15 Glucose 131 H D Calculated Osmolality 276 Calcium 8.0 L Coccidioides IgM Ab Negative Misc Test Result Platelets confirmed Quality Measures Quality Measures none Assessment & Plan Assessment Current Active Medications: Generic Name Dose Route Start Last Admin Trade Name Freq PRN Reason Stop Dose Admin Acetaminophen 650 mg 03/10/24 16:04 Acetaminophen 325 Mg Tablet PO 04/09/24 16:03 Q6H PRN PAIN OR FEVER > 101 Furosemide 40 mg 03/11/24 09:00 03/12/24 09:47 Furosemide Inj 10 Mg/Ml 4ml Vial IVP 04/10/24 08:59 40 mg QDAY LEBRON Administration Ceftriaxone Sodium/Dextrose 50 mls @ 100 mls/hr 03/11/24 09:00 03/12/24 09:47 Rocephin/D5w 1gm Iv Premix IV 03/18/24 08:59 100 mls/hr QDAY LEBRON Administration Octreotide Acetate 1,000 mcg/ 102 mls @ 5.1 mls/hr 03/11/24 18:00 03/12/24 14:04 Sodium Chloride IV 03/16/24 17:59 50 mcg/hr .Q20H LEBRON 5.1 mls/hr Administration Protocol 50 MCG/HR Lactulose 20 gm 03/11/24 22:00 03/12/24 14:03 Lactulose Syrup 20 Gm/30 Ml Udc PO 04/09/24 21:59 20 gm TID LEBRON Administration Protocol Metolazone 5 mg 03/11/24 09:00 03/12/24 09:48 Metolazone 2.5 Mg Tablet PO 04/10/24 08:59 5 mg QDAY LEBRON Administration Ondansetron HCl 4 mg 03/10/24 16:04 Ondansetron Inj 2 Mg/Ml Inj 2 Ml IV 04/09/24 16:03 Q6H PRN NAUSEA OR VOMITING Protocol Pantoprazole Sodium 40 mg 03/11/24 09:00 03/12/24 09:48 Pantoprazole Inj 40 Mg Vial IVP 04/10/24 08:59 40 mg QDAY LEBRON Administration Spironolactone 25 mg 03/10/24 22:00 03/12/24 09:48 Spironolactone 25 Mg Tablet PO 04/09/24 21:59 25 mg BID LEBRON Administration Plan Mr. Anderson is a 38-year-old male with no significant past medical history. Patient is admitted to the hospital for decompensated cirrhosis secondary to alcohol abuse. #decompensated cirrhosis 2/2 alcohol #Endoscopic varices s/p band ligation #Ascites #Hyperbilirubinemia #Hypoalbuminemia #thrombocytopenia #coagulopathy -Pt endorses to drinking 6 pack of beer daily, patient's last drink was approximately 1 month ago. - noticed scleral and skin jaundice for approximately a year -Patient denies hematemesis, nausea or vomiting, patient also denies melena or hematochezia -CT abdomen/pelvis: Cirrhosis, Esophageal varices, perigastric varices, Prominent ascites, Hepatic colopathy, hepatic enteropathy -MELD score 20pts (19.6 % estimated 90-day mortality), Child-Moore Class C -AST 56 ALT 29, T.bili 5.7 and direct [place] 3.1 -Liver U/S ordered, f/u -IV Ceftriaxone for SBP ppx 03/10- -Lactulose 3 times daily -Ascites IR paracentesis done- 5L fluid removed 03/10, will repeat as needed -GI consulted, appreciate recommendations -Monitoring CMP - iv octreotide for 5 dayss #L. 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 Mindy Diamond (PGY-2)- Internal medicine resident Attending Provider Attestation/Addendum Patient with alcoholic cirrhosis, Child Moore Class C, portal hypertension. SP ligation of esophageal varices. Patient had paracentesis 03/10. Patient is afebrile, he has less edema particularly of his legs. His belly is starting to feel full again. Discussed with house staff.
[2024-03-12 14:51] LABS: Cocci Serology, IgG Negative (Negative)
--- NOTE | 2024-03-12 16:39 | PD.IMPROG ---
Documentation for date of: 03/12/24 Subjective Subjective Interval history: Patient evaluated status post band ligation of the esophageal varices Hemoglobin hematocrit 11.9 and 33.7 Exam Vital Signs Temp Pulse Resp BP Pulse Ox O2 Del Method O2 Flow Rate 98.2 F 72 16 122/73 93 L Room Air 3 03/12/24 12:00 03/12/24 12:00 03/12/24 12:00 03/12/24 12:00 03/12/24 12:00 03/12/24 12:00 03/11/24 17:25 Objective Labs 03/12/24 05:06 03/12/24 05:06 Labs: Laboratory Results - last 24 hr 03/10/24 03/12/24 17:44 05:06 WBC 5.5 RBC 3.48 L Hgb 11.9 L Hct 33.7 L MCV 97 MCH 34.2 MCHC 35.3 RDW Std Deviation 57.1 H Plt Count 48 L D Neut % (Auto) 69 Lymph % (Auto) 16 [place] % (Auto) 8 Eos % (Auto) 6 Baso % (Auto) 1 Neut # (Auto) 3.8 Lymph # (Auto) 0.9 L [place] # (Auto) 0.5 Eos # (Auto) 0.3 Baso # (Auto) 0.1 Immature Gran # (Auto) 0.01 H Absolute Nucleated RBC 0.00 Immature Gran % 0 Nucleated RBC % 0 Sodium 138 Potassium 4.0 Chloride 105 Carbon Dioxide 27.4 Anion Gap 6 L BUN 9 Creatinine 0.6 Estim Creat Clear Calc 166.7 eGFR > 60 BUN/Creatinine Ratio 15 Glucose 131 H D Calculated Osmolality 276 Calcium 8.0 L Coccidioides IgG Ab Negative Misc Test Result Platelets confirmed Impressions Impression: # Chronic liver disease secondary to alcohol # Status post band ligation of esophageal varices continue octreotide for 5 days Assessment & Plan A&P Narrative # Acutely decompensated chronic liver disease secondary to alcohol with coagulopathy and thrombocytopenia # Advanced portal hypertension with intractable ascites # Detail edema # Esophageal and perigastric varices suggestions 2 g sodium diet recommend dietary consultation for that as it is extremely difficult to do 1 L p.o. fluid striction in 24 hours Lasix 40 mg IV push daily Spironolactone 25 mg p.o. twice daily Metolazone 5 milligram p.o. daily N.p.o. midnight tonight for an upper endoscopy tomorrow to prophylactically band ligated esophageal varices to improve his morbidity and mortality from GI bleed Emphasized complete abstain from alcohol advised to join AA thank you for the opportunity to participate in the care of this patient Time Spent With Patient Time: Total time spent is greater than 50% in coordination of care (as documented) at patient's floor/unit and/or counseling patient:
[2024-03-13] VITALS (10 sets, daily range): BP systolic 106–120; BP diastolic 64–82; PULSE 58–72; RESP 14–97; TEMP 36.4–37.1; O2SAT 93–99
[2024-03-13 05:46] LABS: Basophils # (Auto) 0.1 Thou/mm3 (0.0-0.2); Basophils % (Auto) 1 % (0-2.5); Eosinophils # (Auto) 0.3 Thou/mm3 (0.0-0.5); Eosinophils % (Auto) 6 % (0-10); Hematocrit 35.4 % (41.0-53.0); Hemoglobin 12.3 g/dL (13.5-16.0); Immature Granulocytes % (Auto) 0 % (0-0); Immature Granulocytes Auto 0.01 Thou/mm3 (0.00-0.00); Lymphocytes # (Auto) 0.9 Thou/mm3 (1.0-4.8); Lymphocytes % (Auto) 18 % (10-50); Mean Corpuscular HGB Conc 34.7 g/dl (31.0-37.0); Mean Corpuscular Hemoglobin 33.8 pg (25.0-35.0); Mean Corpuscular Volume 97 fL (80-100); Monocytes # (Auto) 0.6 Thou/mm3 (0.0-0.8); Monocytes % (Auto) 11 % (0-12); Neutrophils # (Auto) 3.3 Thou/mm3 (1.8-7.7); Neutrophils % (Auto) 64 % (37-80); Nucleated Red Blood Cell % 0 /100 WBC (0); RDW Standard Deviation 54.9 fL (35.1-43.9); Red Blood Count 3.64 Miln/mm3 (4.50-5.90); White Blood Count 5.2 Thou/mm3 (3.8-10.6)
[2024-03-13 06:11] LABS: Anion Gap 8 (7-16); BUN/Creatinine Ratio 13 Ratio (12-20); Blood Urea Nitrogen 9 mg/dL (9-23); Calcium 7.7 mg/dL (8.3-10.6); Chloride 100 mMol/L (98-107); Creatinine (Component) 0.7 mg/dL (0.6-1.3); Estimated Creatinine Clearance 142.8 mL/min (>60); Glucose 84 mg/dL (74-106); Osmolality,Calculated 271 (275-295); Potassium 3.7 mMol/L (3.4-5.1); Sodium 137 mMol/L (136-145); eGFR > 60 See Note
[2024-03-13 06:18] LABS: Platelet Count 51 Thou/mm3 (140-440); Slide Review Platelets confirmed
[2024-03-13] MEDS: cefTRIAXone/D5w 1gm IV premix 50 ML IV (08:14)
[2024-03-13] MEDS: PANTOPRAZOLE INJ 40 MG VIAL IVP (08:15)
--- NOTE | 2024-03-13 14:04 | ESPR_ITS ---
Documentation for date of: 03/13/24 Subjective Subjective Interval history: Patient is evaluated bedside, just walked out of the shower, noted marked reduction in abdominal distention, asymptomatic currently, spoke to Dr. Valdovinos who said the patient will need to 5 days of IV octreotide treatment, currently day 2, patient is s/p endoscopic variceal band ligation. Stressed alcohol abstinence Exam Vital Signs Temp Pulse Resp BP Pulse Ox O2 Del Method O2 Flow Rate 97.7 F 60 16 106/66 96 Room Air 3 03/13/24 08:00 03/13/24 08:16 03/13/24 08:00 03/13/24 08:16 03/13/24 08:00 03/13/24 08:00 03/11/24 17:25 Narrative Exam GENERAL: A&Ox3 . Awake, Not in acute distress NEURO: no focal neurological deficits HEENT: Atraumatic, Normocephalic. mucous membranes moist. Eyes open, symmetrical, & clear HEART: Normal Heart Sounds LUNGS: Clear to auscultation with no wheezing or crackles. ABDOMEN: soft, mildly distended s/p paracentesis, non-tender, bowel sounds heard, no guarding or rebound tenderness SKIN: Scleral and skin icterus, no Rash or ecchymoses EXTREMITIES: No edema, tenderness, able to move all 4 extremities, pedal pulses palpated Objective Labs 03/13/24 04:48 03/13/24 04:48 Labs: Laboratory Results - last 24 hr 03/10/24 03/13/24 17:44 04:48 WBC 5.2 RBC 3.64 L Hgb 12.3 L Hct 35.4 L MCV 97 MCH 33.8 MCHC 34.7 RDW Std Deviation 54.9 H Plt Count 51 L Neut % (Auto) 64 Lymph % (Auto) 18 [place] % (Auto) 11 Eos % (Auto) 6 Baso % (Auto) 1 Neut # (Auto) 3.3 Lymph # (Auto) 0.9 L [place] # (Auto) 0.6 Eos # (Auto) 0.3 Baso # (Auto) 0.1 Immature Gran # (Auto) 0.01 H Absolute Nucleated RBC 0.00 Immature Gran % 0 Nucleated RBC % 0 Sodium 137 Potassium 3.7 Chloride 100 Carbon Dioxide 29.0 Anion Gap 8 BUN 9 Creatinine 0.7 Estim Creat Clear Calc 142.8 eGFR > 60 BUN/Creatinine Ratio 13 Glucose 84 Calculated Osmolality 271 L Calcium 7.7 L Coccidioides IgG Ab Negative Misc Test Result Platelets confirmed Quality Measures Quality Measures none Assessment & Plan Assessment Current Active Medications: Generic Name Dose Route Start Last Admin Trade Name Freq PRN Reason Stop Dose Admin Acetaminophen 650 mg 03/10/24 16:04 Acetaminophen 325 Mg Tablet PO 04/09/24 16:03 Q6H PRN PAIN OR FEVER > 101 Furosemide 40 mg 03/11/24 09:00 03/13/24 08:15 Furosemide Inj 10 Mg/Ml 4ml Vial IVP 04/10/24 08:59 Not Given QDAY LEBRON Ceftriaxone Sodium/Dextrose 50 mls @ 100 mls/hr 03/11/24 09:00 03/13/24 08:14 Rocephin/D5w 1gm Iv Premix IV 03/18/24 08:59 100 mls/hr QDAY LEBRON Administration Octreotide Acetate 1,000 mcg/ 102 mls @ 5.1 mls/hr 03/11/24 18:00 03/12/24 14:04 Sodium Chloride IV 03/16/24 17:59 50 mcg/hr .Q20H LEBRON 5.1 mls/hr Administration Protocol 50 MCG/HR Lactulose 20 gm 03/11/24 22:00 03/13/24 04:59 Lactulose Syrup 20 Gm/30 Ml Udc PO 04/09/24 21:59 Not Given TID LEBRON Protocol Metolazone 5 mg 03/11/24 09:00 03/13/24 08:15 Metolazone 2.5 Mg Tablet PO 04/10/24 08:59 Not Given QDAY LEBRON Ondansetron HCl 4 mg 03/10/24 16:04 Ondansetron Inj 2 Mg/Ml Inj 2 Ml IV 04/09/24 16:03 Q6H PRN NAUSEA OR VOMITING Protocol Pantoprazole Sodium 40 mg 03/11/24 09:00 03/13/24 08:15 Pantoprazole Inj 40 Mg Vial IVP 04/10/24 08:59 40 mg QDAY LEBRON Administration Spironolactone 25 mg 03/10/24 22:00 03/13/24 08:16 Spironolactone 25 Mg Tablet PO 04/09/24 21:59 Not Given BID LEBRON Plan Mr. Anderson is a 38-year-old male with no significant past medical history. Patient is admitted to the hospital for decompensated cirrhosis secondary to alcohol abuse. #decompensated cirrhosis 2/2 alcohol #Endoscopic varices s/p band ligation #Ascites -CT abdomen/pelvis: Cirrhosis, Esophageal varices, perigastric varices, Prominent ascites, Hepatic colopathy, hepatic enteropathy -MELD score 20pts (19.6 % estimated 90-day mortality), Child-Moore Class C -IV Ceftriaxone for SBP ppx 03/10- -Lactulose 3 times daily -Ascites IR paracentesis done- 5L fluid removed 03/10, will repeat as needed -GI consulted, appreciate recommendations - iv octreotide for 5 days #L. 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 Mindy Diamond (PGY-2)- Internal medicine resident Attending Provider Attestation/Addendum Patient was seen and examined. He has less lower extremity edema. He has ascites. No SOB. Patient is afebrile. He denies abdominal pain. He is on octreotide.
[2024-03-13] MEDS: LACTULOSE SYRUP 20 GM/30 ML UDC PO ×2 (15:03→21:00)
--- NOTE | 2024-03-13 16:56 | ESPR_ITS ---
Documentation for date of: 03/13/24 Subjective Subjective Interval history: Patient . Evaluated Hemoglobin hematocrit 12.3 and 35.4 Exam Vital Signs Temp Pulse Resp BP Pulse Ox O2 Del Method O2 Flow Rate 97.5 F 58 L 14 109/74 93 L Room Air 3 03/13/24 12:00 03/13/24 12:00 03/13/24 12:00 03/13/24 12:00 03/13/24 12:00 03/13/24 12:00 03/11/24 17:25 Objective Labs 03/13/24 04:48 03/13/24 04:48 Labs: Laboratory Results - last 24 hr 03/13/24 04:48 WBC 5.2 RBC 3.64 L Hgb 12.3 L Hct 35.4 L MCV 97 MCH 33.8 MCHC 34.7 RDW Std Deviation 54.9 H Plt Count 51 L Neut % (Auto) 64 Lymph % (Auto) 18 [place] % (Auto) 11 Eos % (Auto) 6 Baso % (Auto) 1 Neut # (Auto) 3.3 Lymph # (Auto) 0.9 L [place] # (Auto) 0.6 Eos # (Auto) 0.3 Baso # (Auto) 0.1 Immature Gran # (Auto) 0.01 H Absolute Nucleated RBC 0.00 Immature Gran % 0 Nucleated RBC % 0 Sodium 137 Potassium 3.7 Chloride 100 Carbon Dioxide 29.0 Anion Gap 8 BUN 9 Creatinine 0.7 Estim Creat Clear Calc 142.8 eGFR > 60 BUN/Creatinine Ratio 13 Glucose 84 Calculated Osmolality 271 L Calcium 7.7 L Misc Test Result Platelets confirmed Impressions Impression: # Status post band ligation of the esophageal varices # Chronic liver disease secondary to alcohol Continue current management Assessment & Plan A&P Narrative # Acutely decompensated chronic liver disease secondary to alcohol with coagulopathy and thrombocytopenia # Advanced portal hypertension with intractable ascites # Detail edema # Esophageal and perigastric varices suggestions 2 g sodium diet recommend dietary consultation for that as it is extremely difficult to do 1 L p.o. fluid striction in 24 hours Lasix 40 mg IV push daily Spironolactone 25 mg p.o. twice daily Metolazone 5 milligram p.o. daily N.p.o. midnight tonight for an upper endoscopy tomorrow to prophylactically band ligated esophageal varices to improve his morbidity and mortality from GI bleed Emphasized complete abstain from alcohol advised to join AA thank you for the opportunity to participate in the care of this patient Time Spent With Patient Time: Total time spent is greater than 50% in coordination of care (as documented) at patient's floor/unit and/or counseling patient:
[2024-03-13] MEDS: OCTREOTIDE ACET INJ 1,000 MCG in SODIUM CHLORIDE 0.9% 100 ML 5.1 MCG IV (20:56)
[2024-03-13] MEDS: SPIRONOLACTONE 25 MG TABLET PO (20:56)
[2024-03-14] VITALS (8 sets, daily range): BP systolic 98–123; BP diastolic 58–78; PULSE 60–78; RESP 16–18; TEMP 36.2–37.1; O2SAT 95–99
[2024-03-14] MEDS: LACTULOSE SYRUP 20 GM/30 ML UDC PO ×3 (05:00→21:35)
[2024-03-14 05:52] LABS: Basophils # (Auto) 0.1 Thou/mm3 (0.0-0.2); Basophils % (Auto) 1 % (0-2.5); Eosinophils # (Auto) 0.3 Thou/mm3 (0.0-0.5); Eosinophils % (Auto) 7 % (0-10); Hematocrit 33.2 % (41.0-53.0); Hemoglobin 11.7 g/dL (13.5-16.0); Immature Granulocytes % (Auto) 0 % (0-0); Immature Granulocytes Auto 0.01 Thou/mm3 (0.00-0.00); Lymphocytes % (Auto) 19 % (10-50); Mean Corpuscular HGB Conc 35.2 g/dl (31.0-37.0); Mean Corpuscular Hemoglobin 33.8 pg (25.0-35.0); Mean Corpuscular Volume 96 fL (80-100); Monocytes # (Auto) 0.5 Thou/mm3 (0.0-0.8); Monocytes % (Auto) 11 % (0-12); Neutrophils # (Auto) 3.1 Thou/mm3 (1.8-7.7); Neutrophils % (Auto) 62 % (37-80); Nucleated Red Blood Cell % 0 /100 WBC (0); RDW Standard Deviation 53.7 fL (35.1-43.9); Red Blood Count 3.46 Miln/mm3 (4.50-5.90); White Blood Count 5.1 Thou/mm3 (3.8-10.6)
[2024-03-14 06:07] LABS: Platelet Count 62 Thou/mm3 (140-440)
[2024-03-14 06:26] LABS: Anion Gap 5 (7-16); BUN/Creatinine Ratio 13 Ratio (12-20); Blood Urea Nitrogen 8 mg/dL (9-23); Calcium 7.9 mg/dL (8.3-10.6); Carbon Dioxide 30.9 mMol/L (20.0-31.0); Chloride 101 mMol/L (98-107); Creatinine (Component) 0.6 mg/dL (0.6-1.3); Estimated Creatinine Clearance 166.7 mL/min (>60); Glucose 105 mg/dL (74-106); Osmolality,Calculated 272 (275-295); Potassium 3.8 mMol/L (3.4-5.1); Sodium 137 mMol/L (136-145); eGFR > 60 See Note
[2024-03-14 06:39] LABS: Slide Review Platelets confirmed
[2024-03-14 09:16] LABS: Albumin, Serum 2.4 gm/dL (3.5-5.0)
[2024-03-14] MEDS: metOLazone 2.5 MG TABLET 5 MG PO (09:38)
[2024-03-14] MEDS: SPIRONOLACTONE 25 MG TABLET PO ×2 (09:38→21:35)
[2024-03-14] MEDS: PANTOPRAZOLE INJ 40 MG VIAL IVP (09:38)
[2024-03-14] MEDS: FUROSEMIDE INJ 10 MG/ML 4ML VIAL 40 MG IVP (09:38)
[2024-03-14] MEDS: cefTRIAXone/D5w 1gm IV premix 50 ML IV (09:39)
--- NOTE | 2024-03-14 09:59 | PC.SS ---
Follow up note: Pt is still receiving IV Octreotide treatment and is on day 3 out of 5 days. Pt will return home upon dc.
--- NOTE | 2024-03-14 14:16 | ESPR_ITS ---
Documentation for date of: 03/14/24 Subjective Subjective Interval history: Patient was seen and examined at bedside this AM. No acute exents overnight. Patient tolerating diet, adequate urine output and mentation is at baseline. Patient endorses improvement of Jaundice. Currently on day 3 of octreotide infusion to complete a total of 5 days on 03/16/2024 prior to discharge. Exam Vital Signs Temp Pulse Resp BP Pulse Ox O2 Del Method O2 Flow Rate 97.7 F 65 16 110/73 99 Room Air 3 03/14/24 11:54 03/14/24 11:54 03/14/24 11:54 03/14/24 11:54 03/14/24 11:54 03/14/24 08:00 03/11/24 17:25 Narrative Exam Constitutional Alert, oriented x 3 and comfortable. Young male, scleral icterus HEENT Vision grossly intact. Patent nares. Trachea midline Respiratory Chest normal on inspection and clear auscultation bilaterally Cardiovascular S1 and S2 audible, RRR. No murmurs carotid bruit. No gross JVD. Abdominal Tense, distended and nontender to palpation in all quadrants. Umbilicus indurated and bowel sounds present Genitourinary No bladder tenderness, no flank pain. Normal to palpation Musculoskeletal Extremities tone within normal limits. No LE edema. Neurological CN II - XII grossly intact. Extremity motor and sensation grossly intact. Skin Warm, dry and intact. No apparent lesions. Psychiatric Patient has good affect, is cooperative Objective Labs 03/15/24 05:35 03/15/24 05:35 Labs: Laboratory Results - last 24 hr 03/14/24 04:19 WBC 5.1 RBC 3.46 L Hgb 11.7 L Hct 33.2 L MCV 96 MCH 33.8 MCHC 35.2 RDW Std Deviation 53.7 H Plt Count 62 L D Neut % (Auto) 62 Lymph % (Auto) 19 [place] % (Auto) 11 Eos % (Auto) 7 Baso % (Auto) 1 Neut # (Auto) 3.1 Lymph # (Auto) 1.0 [place] # (Auto) 0.5 Eos # (Auto) 0.3 Baso # (Auto) 0.1 Immature Gran # (Auto) 0.01 H Absolute Nucleated RBC 0.00 Immature Gran % 0 Nucleated RBC % 0 Sodium 137 Potassium 3.8 Chloride 101 Carbon Dioxide 30.9 Anion Gap 5 L BUN 8 L Creatinine 0.6 Estim Creat Clear Calc 166.7 eGFR > 60 BUN/Creatinine Ratio 13 Glucose 105 Calculated Osmolality 272 L Calcium 7.9 L Albumin 2.4 L Misc Test Result Platelets confirmed Quality Measures Quality Measures none Assessment & Plan Assessment Current Active Medications: Generic Name Dose Route Start Last Admin Trade Name Freq PRN Reason Stop Dose Admin Acetaminophen 650 mg 03/10/24 16:04 Acetaminophen 325 Mg Tablet PO 04/09/24 16:03 Q6H PRN PAIN OR FEVER > 101 Furosemide 40 mg 03/11/24 09:00 03/14/24 09:38 Furosemide Inj 10 Mg/Ml 4ml Vial IVP 04/10/24 08:59 40 mg QDAY LEBRON Administration Ceftriaxone Sodium/Dextrose 50 mls @ 100 mls/hr 03/11/24 09:00 03/14/24 09:39 Rocephin/D5w 1gm Iv Premix IV 03/18/24 08:59 100 mls/hr QDAY LEBRON Administration Octreotide Acetate 1,000 mcg/ 102 mls @ 5.1 mls/hr 03/11/24 18:00 03/13/24 20:56 Sodium Chloride IV 03/16/24 17:59 50 mcg/hr .Q20H LEBRON 5.1 mls/hr Administration Protocol 50 MCG/HR Lactulose 20 gm 03/11/24 22:00 03/14/24 05:00 Lactulose Syrup 20 Gm/30 Ml Udc PO 04/09/24 21:59 20 gm TID LEBRON Administration Protocol Metolazone 5 mg 03/11/24 09:00 03/14/24 09:38 Metolazone 2.5 Mg Tablet PO 04/10/24 08:59 5 mg QDAY LEBRON Administration Ondansetron HCl 4 mg 03/10/24 16:04 Ondansetron Inj 2 Mg/Ml Inj 2 Ml IV 04/09/24 16:03 Q6H PRN NAUSEA OR VOMITING Protocol Pantoprazole Sodium 40 mg 03/11/24 09:00 03/14/24 09:38 Pantoprazole Inj 40 Mg Vial IVP 04/10/24 08:59 40 mg QDAY LEBRON Administration Spironolactone 25 mg 03/10/24 22:00 03/14/24 09:38 Spironolactone 25 Mg Tablet PO 04/09/24 21:59 25 mg BID LEBRON Administration Plan Mr. Anderson is a 38-year-old male with no significant past medical history. Patient is admitted to the hospital for decompensated cirrhosis secondary to alcohol abuse. # Decompensated alcoholic cirrhosis with ascites, coagulopathy and thrombocytopenia # Esophageal varices s/p band ligation -CT abdomen/pelvis: Cirrhosis, Esophageal varices, perigastric varices, Prominent ascites, Hepatic colopathy, hepatic enteropathy -MELD score 20pts (19.6 % estimated 90-day mortality), Child-Moore Class C -Ascites IR paracentesis done- 5L fluid removed 03/10, will repeat as needed [03/11/2024] PT 21.9, INR 2.1 Patient had EGD with prophylactic banding of esophageal varices. Plan: ? Continue octreotide infusion to complete a total of 5 days on 03/16/2024. ? Continue ceftriaxone 1 g IV daily for SBP prophylaxis ? Continue lactulose 20 g p.o. 3 times daily and titrate as necessary for hepatic encephalopathy prophylaxis ? Continue Lasix 40 Mg IV daily for ascites ? Continue metolazone 5 Mg p.o. daily for ascites ? Continue spironolactone 25 Mg p.o. twice daily for ascites as per GI recommendations ? Possible repeat therapeutic paracentesis if necessary prior to discharge ? GI, Dr. Valdovinos consulted and closely following the case. Appreciate recommendations #L. 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 Follow-up with your PCP for outpatient interval CT scan for monitoring of pulmonary nodule #Hyperbilirubinemia #Hypoalbuminemia -Sequelae of decompensated cirrhosis, continue to monitor daily labs #Pseudo hypocalcemia Corrected calcium 9.2 Health maintenance: Disposition: To complete 5 days of octreotide infusion on 03/16/2024 Diet: 2G sodium restricted Lines: pIVs GI Prophylaxis: Pantoprazole IV Thrombo Prophylaxis: Contraindicated Code status: FULL CODE Plan of care discussed with Attending Dr. Mikaela Norris MD PGY 1 Attending Provider Attestation/Addendum I have discussed and was present for the essential components of the history, physical examination, diagnosis, and treatment plan with the resident. I agree with the patient's care as documented by the resident and amended herein by me. Franco Al DO. Although this document has been carefully reviewed, there may still be some phonetic and other typographical errors. These errors are purely grammatical due to imperfections in the software program and should not be construed in any way to compromise the substance of the patient's medical care during this visit.
--- NOTE | 2024-03-14 20:02 | ESPR_ITS ---
Documentation for date of: 03/14/24 Subjective Subjective Interval history: Patient evaluated hemoglobin hematocrit at 11.7 and 32.2 patient on octreotide drip Exam Vital Signs Temp Pulse Resp BP Pulse Ox O2 Del Method O2 Flow Rate 98.3 F 73 18 99/66 99 Room Air 3 03/14/24 16:00 03/14/24 16:00 03/14/24 16:00 03/14/24 16:00 03/14/24 16:00 03/14/24 08:00 03/11/24 17:25 Objective Labs 03/14/24 04:19 03/14/24 04:19 Labs: Laboratory Results - last 24 hr 03/14/24 04:19 WBC 5.1 RBC 3.46 L Hgb 11.7 L Hct 33.2 L MCV 96 MCH 33.8 MCHC 35.2 RDW Std Deviation 53.7 H Plt Count 62 L D Neut % (Auto) 62 Lymph % (Auto) 19 [place] % (Auto) 11 Eos % (Auto) 7 Baso % (Auto) 1 Neut # (Auto) 3.1 Lymph # (Auto) 1.0 [place] # (Auto) 0.5 Eos # (Auto) 0.3 Baso # (Auto) 0.1 Immature Gran # (Auto) 0.01 H Absolute Nucleated RBC 0.00 Immature Gran % 0 Nucleated RBC % 0 Sodium 137 Potassium 3.8 Chloride 101 Carbon Dioxide 30.9 Anion Gap 5 L BUN 8 L Creatinine 0.6 Estim Creat Clear Calc 166.7 eGFR > 60 BUN/Creatinine Ratio 13 Glucose 105 Calculated Osmolality 272 L Calcium 7.9 L Albumin 2.4 L Misc Test Result Platelets confirmed Impressions Impression: # advanced liver disease secondary to alcohol with advanced portal hypertension leading to band ligation of the esophageal varices Continue octreotide drip Assessment & Plan A&P Narrative # Acutely decompensated chronic liver disease secondary to alcohol with coagulopathy and thrombocytopenia # Advanced portal hypertension with intractable ascites # Detail edema # Esophageal and perigastric varices suggestions 2 g sodium diet recommend dietary consultation for that as it is extremely difficult to do 1 L p.o. fluid striction in 24 hours Lasix 40 mg IV push daily Spironolactone 25 mg p.o. twice daily Metolazone 5 milligram p.o. daily N.p.o. midnight tonight for an upper endoscopy tomorrow to prophylactically band ligated esophageal varices to improve his morbidity and mortality from GI bleed Emphasized complete abstain from alcohol advised to join AA thank you for the opportunity to participate in the care of this patient Time Spent With Patient Time: Total time spent is greater than 50% in coordination of care (as documented) at patient's floor/unit and/or counseling patient:
[2024-03-14] MEDS: OCTREOTIDE ACET INJ 1,000 MCG in SODIUM CHLORIDE 0.9% 100 ML 5.1 MCG IV (21:37)
[2024-03-15] VITALS (9 sets, daily range): BP systolic 103–116; BP diastolic 59–75; PULSE 54–63; RESP 17–19; TEMP 36.1–37.1; O2SAT 95–98
[2024-03-15] MEDS: LACTULOSE SYRUP 20 GM/30 ML UDC PO ×3 (05:35→21:09)
[2024-03-15 06:16] LABS: Basophils # (Auto) 0.1 Thou/mm3 (0.0-0.2); Basophils % (Auto) 1 % (0-2.5); Eosinophils # (Auto) 0.3 Thou/mm3 (0.0-0.5); Eosinophils % (Auto) 6 % (0-10); Hematocrit 34.3 % (41.0-53.0); Hemoglobin 12.1 g/dL (13.5-16.0); Immature Granulocytes % (Auto) 0 % (0-0); Immature Granulocytes Auto 0.01 Thou/mm3 (0.00-0.00); Lymphocytes % (Auto) 19 % (10-50); Mean Corpuscular HGB Conc 35.3 g/dl (31.0-37.0); Mean Corpuscular Volume 96 fL (80-100); Monocytes # (Auto) 0.5 Thou/mm3 (0.0-0.8); Monocytes % (Auto) 9 % (0-12); Neutrophils # (Auto) 3.4 Thou/mm3 (1.8-7.7); Neutrophils % (Auto) 64 % (37-80); Nucleated Red Blood Cell % 0 /100 WBC (0); RDW Standard Deviation 53.7 fL (35.1-43.9); Red Blood Count 3.56 Miln/mm3 (4.50-5.90); White Blood Count 5.2 Thou/mm3 (3.8-10.6)
[2024-03-15 06:20] LABS: Platelet Count 60 Thou/mm3 (140-440)
[2024-03-15 06:40] LABS: Alanine Aminotransferase 21 U/L (10-49); Albumin, Serum 2.6 gm/dL (3.5-5.0); Albumin/Globulin Ratio 0.7 (1.2-2.2); Alkaline Phosphatase 104 U/L (46-116); Anion Gap 6 (7-16); Aspartate Amino Transferase 45 U/L (0-34); BUN/Creatinine Ratio 11 Ratio (12-20); Bilirubin,Total 5.9 mg/dL (0.3-1.2); Blood Urea Nitrogen 8 mg/dL (9-23); Calcium 8.3 mg/dL (8.3-10.6); Calcium (Corrected) 9.4 mg/dL (8.5-10.1); Carbon Dioxide 31.2 mMol/L (20.0-31.0); Chloride 100 mMol/L (98-107); Creatinine (Component) 0.7 mg/dL (0.6-1.3); Estimated Creatinine Clearance 142.8 mL/min (>60); Globulin 3.7 gm/dL (2.3-3.5); Glucose 79 mg/dL (74-106); Magnesium 1.4 mg/dL (1.6-2.6); Osmolality,Calculated 271 (275-295); Phosphorous 4.2 mg/dL (2.4-5.1); Potassium 4.1 mMol/L (3.4-5.1); Sodium 137 mMol/L (136-145); Total Protein 6.3 gm/dL (5.7-8.2); eGFR > 60 See Note
[2024-03-15] MEDS: SPIRONOLACTONE 25 MG TABLET PO ×2 (08:45→21:08)
[2024-03-15] MEDS: FUROSEMIDE INJ 10 MG/ML 4ML VIAL 40 MG IVP (08:45)
[2024-03-15] MEDS: cefTRIAXone/D5w 1gm IV premix 50 ML IV (08:46)
[2024-03-15] MEDS: Magnesium Sulfate 2 GM Ivpb 2 GM/50 ML BAG IV (08:53)
[2024-03-15] MEDS: metOLazone 2.5 MG TABLET 5 MG PO (08:54)
[2024-03-15 12:06] LABS: Slide Review Platelets confirmed
[2024-03-15] MEDS: PANTOPRAZOLE INJ 40 MG VIAL IVP (13:44)
--- NOTE | 2024-03-15 13:55 | ESPR_ITS ---
<Statement entered by Segundo Ornelas MD - 03/15/24 16:05> Agree with plan and examination finding on the note below. Patient seen and examined at bedside today. Labs and imaging reviewed. Patient care discussed with my attending and co-resident . Documentation for date of: 03/15/24 Subjective Subjective Interval history: Patient was seen and examined at bedside this AM. No acute exents overnight. Patient tolerating diet, adequate urine output and mentation is at baseline. Patient endorses improvement of Jaundice. Currently on day 4 of octreotide infusion to complete a total of 5 days on 03/16/2024 prior to discharge. Exam Vital Signs Temp Pulse Resp BP Pulse Ox O2 Del Method O2 Flow Rate 97.7 F 63 18 114/69 95 Room Air 3 03/15/24 12:00 03/15/24 12:00 03/15/24 12:00 03/15/24 12:00 03/15/24 12:00 03/15/24 08:00 03/11/24 17:25 Narrative Exam Constitutional Alert, oriented x 3 and comfortable. Young male, scleral icterus - improving HEENT Vision grossly intact. Patent nares. Trachea midline. Left eye subconjunctival hemorrhage Respiratory Chest normal on inspection and clear auscultation bilaterally Cardiovascular S1 and S2 audible, RRR. No murmurs carotid bruit. No gross JVD. Abdominal Tense, distended and nontender to palpation in all quadrants. Umbilicus indurated and bowel sounds present Genitourinary No bladder tenderness, no flank pain. Normal to palpation Musculoskeletal Extremities tone within normal limits. No LE edema. Neurological CN II - XII grossly intact. Extremity motor and sensation grossly intact. Skin Warm, dry and intact. No apparent lesions. Psychiatric Patient has good affect, is cooperative Objective Labs 03/15/24 05:35 03/15/24 05:35 Labs: Laboratory Results - last 24 hr 03/15/24 05:35 WBC 5.2 RBC 3.56 L Hgb 12.1 L Hct 34.3 L MCV 96 MCH 34.0 MCHC 35.3 RDW Std Deviation 53.7 H Plt Count 60 L Neut % (Auto) 64 Lymph % (Auto) 19 [place] % (Auto) 9 Eos % (Auto) 6 Baso % (Auto) 1 Neut # (Auto) 3.4 Lymph # (Auto) 1.0 [place] # (Auto) 0.5 Eos # (Auto) 0.3 Baso # (Auto) 0.1 Immature Gran # (Auto) 0.01 H Absolute Nucleated RBC 0.00 Immature Gran % 0 Nucleated RBC % 0 Sodium 137 Potassium 4.1 Chloride 100 Carbon Dioxide 31.2 H Anion Gap 6 L BUN 8 L Creatinine 0.7 Estim Creat Clear Calc 142.8 eGFR > 60 BUN/Creatinine Ratio 11 L Glucose 79 Calculated Osmolality 271 L Calcium 8.3 Corrected Calcium 9.4 Phosphorus 4.2 Magnesium 1.4 L Total Bilirubin 5.9 H AST 45 H ALT 21 Alkaline Phosphatase 104 Total Protein 6.3 Albumin 2.6 L Globulin 3.7 H Albumin/Globulin Ratio 0.7 L Misc Test Result Platelets confirmed Quality Measures Quality Measures none Assessment & Plan Assessment Current Active Medications: Generic Name Dose Route Start Last Admin Trade Name Freq PRN Reason Stop Dose Admin Acetaminophen 650 mg 03/10/24 16:04 Acetaminophen 325 Mg Tablet PO 04/09/24 16:03 Q6H PRN PAIN OR FEVER > 101 Furosemide 40 mg 03/11/24 09:00 03/15/24 08:45 Furosemide Inj 10 Mg/Ml 4ml Vial IVP 04/10/24 08:59 40 mg QDAY LEBRON Administration Octreotide Acetate 1,000 mcg/ 102 mls @ 5.1 mls/hr 03/11/24 18:00 03/15/24 13:48 Sodium Chloride IV 03/16/24 17:59 Not Given .Q20H LEBRON Protocol 50 MCG/HR Ceftriaxone Sodium/Dextrose 50 mls @ 100 mls/hr 03/15/24 09:00 03/15/24 08:46 Rocephin/D5w 1gm Iv Premix IV 03/22/24 08:59 100 mls/hr QDAY LEBRON Administration Lactulose 20 gm 03/11/24 22:00 03/15/24 13:44 Lactulose Syrup 20 Gm/30 Ml Udc PO 04/09/24 21:59 20 gm TID LEBRON Administration Protocol Metolazone 5 mg 03/11/24 09:00 03/15/24 08:54 Metolazone 2.5 Mg Tablet PO 04/10/24 08:59 5 mg QDAY LEBRON Administration Ondansetron HCl 4 mg 03/10/24 16:04 Ondansetron Inj 2 Mg/Ml Inj 2 Ml IV 04/09/24 16:03 Q6H PRN NAUSEA OR VOMITING Protocol Pantoprazole Sodium 40 mg 03/11/24 09:00 03/15/24 13:44 Pantoprazole Inj 40 Mg Vial IVP 04/10/24 08:59 40 mg QDAY LEBRON Administration Spironolactone 25 mg 03/10/24 22:00 03/15/24 08:45 Spironolactone 25 Mg Tablet PO 04/09/24 21:59 25 mg BID LEBRON Administration Plan Mr. Anderson is a 38-year-old male with no significant past medical history. Patient is admitted to the hospital for decompensated cirrhosis secondary to alcohol abuse. # Decompensated alcoholic cirrhosis with ascites, coagulopathy and thrombocytopenia # Esophageal varices s/p band ligation -CT abdomen/pelvis: Cirrhosis, Esophageal varices, perigastric varices, Prominent ascites, Hepatic colopathy, hepatic enteropathy -MELD score 20pts (19.6 % estimated 90-day mortality), Child-Moore Class C -Ascites IR paracentesis done- 5L fluid removed 03/10, will repeat as needed [03/11/2024] PT 21.9, INR 2.1 Patient had EGD with prophylactic banding of esophageal varices. Plan: ? Continue octreotide infusion to complete a total of 5 days on 03/16/2024. ? Continue ceftriaxone 1 g IV daily for SBP prophylaxis ? Continue lactulose 20 g p.o. 3 times daily and titrate as necessary for hepatic encephalopathy prophylaxis ? Continue Lasix 40 Mg IV daily for ascites ? Continue metolazone 5 Mg p.o. daily for ascites ? Continue spironolactone 25 Mg p.o. twice daily for ascites as per GI recommendations ? Possible repeat therapeutic paracentesis if necessary prior to discharge ? GI, Dr. Valdovinos consulted and closely following the case. Appreciate recommendations #L. 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 Follow-up with your PCP for outpatient interval CT scan for monitoring of pulmonary nodule #Hyperbilirubinemia #Hypoalbuminemia -Sequelae of decompensated cirrhosis, continue to monitor daily labs #Pseudo hypocalcemia Corrected calcium 9.2 Health maintenance: Disposition: To complete 5 days of octreotide infusion on 03/16/2024 Diet: 2G sodium restricted Lines: pIVs GI Prophylaxis: Pantoprazole IV Thrombo Prophylaxis: Contraindicated Code status: FULL CODE Plan of care discussed with Attending Dr. Mikaela Norris MD PGY 1 Attending Provider Attestation/Addendum I have discussed and was present for the essential components of the history, physical examination, diagnosis, and treatment plan with the resident. I agree with the patient's care as documented by the resident and amended herein by me. Franco Al DO. Patient seen and evaluated this AM. No acute events overnight, will continue octreotide, last dose on 03/16 then can discharge home. Although this document has been carefully reviewed, there may still be some phonetic and other typographical errors. These errors are purely grammatical due to imperfections in the software program and should not be construed in any way to compromise the substance of the patient's medical care during this visit.
--- NOTE | 2024-03-15 21:22 | PD.IMPROG ---
Documentation for date of: 03/15/24 Subjective Subjective Interval history: Patient evaluated Hemoglobin hematocrit 12.1 and 34.3 Exam Vital Signs Temp Pulse Resp BP Pulse Ox O2 Del Method O2 Flow Rate 97.4 F 55 L 17 114/72 96 Room Air 3 03/15/24 16:00 03/15/24 21:08 03/15/24 16:00 03/15/24 21:08 03/15/24 16:00 03/15/24 16:00 03/11/24 17:25 Objective Labs 03/15/24 05:35 03/15/24 05:35 Labs: Laboratory Results - last 24 hr 03/15/24 05:35 WBC 5.2 RBC 3.56 L Hgb 12.1 L Hct 34.3 L MCV 96 MCH 34.0 MCHC 35.3 RDW Std Deviation 53.7 H Plt Count 60 L Neut % (Auto) 64 Lymph % (Auto) 19 [place] % (Auto) 9 Eos % (Auto) 6 Baso % (Auto) 1 Neut # (Auto) 3.4 Lymph # (Auto) 1.0 [place] # (Auto) 0.5 Eos # (Auto) 0.3 Baso # (Auto) 0.1 Immature Gran # (Auto) 0.01 H Absolute Nucleated RBC 0.00 Immature Gran % 0 Nucleated RBC % 0 Sodium 137 Potassium 4.1 Chloride 100 Carbon Dioxide 31.2 H Anion Gap 6 L BUN 8 L Creatinine 0.7 Estim Creat Clear Calc 142.8 eGFR > 60 BUN/Creatinine Ratio 11 L Glucose 79 Calculated Osmolality 271 L Calcium 8.3 Corrected Calcium 9.4 Phosphorus 4.2 Magnesium 1.4 L Total Bilirubin 5.9 H AST 45 H ALT 21 Alkaline Phosphatase 104 Total Protein 6.3 Albumin 2.6 L Globulin 3.7 H Albumin/Globulin Ratio 0.7 L Misc Test Result Platelets confirmed Impressions Impression: # Acute decompensation of the chronic liver disease secondary to alcohol improving # Status post band ligation of esophageal varices continue octreotide infusion till 5 days are completed Assessment & Plan A&P Narrative # Acutely decompensated chronic liver disease secondary to alcohol with coagulopathy and thrombocytopenia # Advanced portal hypertension with intractable ascites # Detail edema # Esophageal and perigastric varices suggestions 2 g sodium diet recommend dietary consultation for that as it is extremely difficult to do 1 L p.o. fluid striction in 24 hours Lasix 40 mg IV push daily Spironolactone 25 mg p.o. twice daily Metolazone 5 milligram p.o. daily N.p.o. midnight tonight for an upper endoscopy tomorrow to prophylactically band ligated esophageal varices to improve his morbidity and mortality from GI bleed Emphasized complete abstain from alcohol advised to join AA thank you for the opportunity to participate in the care of this patient Time Spent With Patient Time: Total time spent is greater than 50% in coordination of care (as documented) at patient's floor/unit and/or counseling patient:
[2024-03-15] MEDS: OCTREOTIDE ACET INJ 1,000 MCG in SODIUM CHLORIDE 0.9% 100 ML 5.1 MCG IV (22:39)
[2024-03-16] VITALS (8 sets, daily range): BP systolic 103–110; BP diastolic 61–79; PULSE 57–71; RESP 18; TEMP 36.2–36.9; O2SAT 93–99
[2024-03-16] MEDS: LACTULOSE SYRUP 20 GM/30 ML UDC PO ×2 (05:44→13:30)
[2024-03-16 05:49] LABS: Basophils # (Auto) 0.1 Thou/mm3 (0.0-0.2); Basophils % (Auto) 1 % (0-2.5); Eosinophils # (Auto) 0.4 Thou/mm3 (0.0-0.5); Eosinophils % (Auto) 8 % (0-10); Hematocrit 34.4 % (41.0-53.0); Hemoglobin 12.2 g/dL (13.5-16.0); Immature Granulocytes % (Auto) 0 % (0-0); Immature Granulocytes Auto 0.01 Thou/mm3 (0.00-0.00); Lymphocytes # (Auto) 0.9 Thou/mm3 (1.0-4.8); Lymphocytes % (Auto) 16 % (10-50); Mean Corpuscular HGB Conc 35.5 g/dl (31.0-37.0); Mean Corpuscular Hemoglobin 33.5 pg (25.0-35.0); Mean Corpuscular Volume 95 fL (80-100); Monocytes # (Auto) 0.7 Thou/mm3 (0.0-0.8); Monocytes % (Auto) 12 % (0-12); Neutrophils # (Auto) 3.7 Thou/mm3 (1.8-7.7); Neutrophils % (Auto) 64 % (37-80); Nucleated Red Blood Cell % 0 /100 WBC (0); RDW Standard Deviation 51.6 fL (35.1-43.9); Red Blood Count 3.64 Miln/mm3 (4.50-5.90); White Blood Count 5.7 Thou/mm3 (3.8-10.6)
[2024-03-16 05:53] LABS: Platelet Count 57 Thou/mm3 (140-440)
[2024-03-16 06:33] LABS: Alanine Aminotransferase 21 U/L (10-49); Albumin, Serum 2.6 gm/dL (3.5-5.0); Albumin/Globulin Ratio 0.7 (1.2-2.2); Alkaline Phosphatase 103 U/L (46-116); Anion Gap 7 (7-16); Aspartate Amino Transferase 42 U/L (0-34); BUN/Creatinine Ratio 13 Ratio (12-20); Bilirubin,Total 5.7 mg/dL (0.3-1.2); Blood Urea Nitrogen 9 mg/dL (9-23); Calcium 7.9 mg/dL (8.3-10.6); Carbon Dioxide 29.8 mMol/L (20.0-31.0); Chloride 97 mMol/L (98-107); Creatinine (Component) 0.7 mg/dL (0.6-1.3); Estimated Creatinine Clearance 142.8 mL/min (>60); Globulin 3.8 gm/dL (2.3-3.5); Glucose 88 mg/dL (74-106); Osmolality,Calculated 265 (275-295); Phosphorous 3.7 mg/dL (2.4-5.1); Potassium 3.7 mMol/L (3.4-5.1); Sodium 134 mMol/L (136-145); Total Protein 6.4 gm/dL (5.7-8.2); eGFR > 60 See Note
[2024-03-16] MEDS: PANTOPRAZOLE INJ 40 MG VIAL IVP (08:15)
[2024-03-16] MEDS: FUROSEMIDE INJ 10 MG/ML 4ML VIAL 40 MG IVP (08:15)
[2024-03-16] MEDS: metOLazone 2.5 MG TABLET 5 MG PO (08:16)
[2024-03-16] MEDS: cefTRIAXone/D5w 1gm IV premix 50 ML IV (08:17)
[2024-03-16] MEDS: SPIRONOLACTONE 25 MG TABLET PO (08:17)
[2024-03-16 09:03] LABS: Magnesium 1.6 mg/dL (1.6-2.6)
--- NOTE | 2024-03-16 09:07 | ESDS_ITS ---
<Statement entered by Pankaj Rai MD - 03/16/24 16:49> I discussed with and supervised the internet network specialist physician involved in the care of this patient. Patient assessment and plan was discussed with entire medicine team, including my attending. I agree with the assessment and plan as documented by internet network specialist doctor. Patient care was discussed with my attending physician Dr. Mikaela Rai, PGY-2 Planned Discharge Date 03/16/24 DS: Providers Provider Date of admission: 03/10/24 16:05 Primary care physician: Jett Marc PA-C Admitting Provider: Kemi Alejandro DO Attending Provider on Admission: Jefe Al DO Consults: 03/10/24 15:39 Consult to Gastroenterology Stat Comment: Cirrhosis Ascites Consulting Provider: Kayla Valdovinos 03/11/24 08:17 Referral Nutritional Services Routine Comment: 2g sodium diet recommendations Attending Provider on DC: Jefe Al DO Discharging Provider: Gurmeet Norris MD DS: Diagnosis Problem List Completed Was Problem List Reviewed/Reconciled?: Yes Hospital Course Hospital Course Hospital course: Mr. Anderson is a 38-year-old male with no significant past medical history who pr esented with worsening shortness of breath and abdominal distention over 3- weeks. Patient is admitted to the hospital for decompensated cirrhosis secondary to alcohol abuse. Patient was diagnosed with decompensated alcoholic cirrhosis with ascites, coagulopathy and thrombocytopenia. His coagulation panel was deranged with PT 21.9 and INR 2.1. He also has severe thrombocytopenia with platelet count of 57,000. He also had EGD done with prophylactic banding of esophageal varices. EGD completed on 03/11/2024 findings include: Grade 2 esophageal varices and third of esophagus. 2 bands were successfully placed with eradication. Slow ooze remained at the end of procedure Subsequently patient was started on octreotide infusion and completed a total of 5 days from 03/11/2024 to 03/16/2024. Patient had diagnostic/therapeutic paracentesis on 03/10/2024 for which drained 5 L of fluid. Fluid analysis ruled out SBP. Patient was started on lactulose 20G p.o. 3 times daily for hepatic encephalopathy prophylaxis, Lasix 40 Mg IV daily for ascites along with spironolactone 25 Mg p.o. twice daily and metolazone 5 [address] daily. On CT chest/abdomen/pelvis there was evidence of significant left base pneumonia. Patient was treated with a 5-day course of ceftriaxone 1 g IV daily. Incidentally patient was found to have pulmonary nodules on CT chest. Recommend interval CT scan as outpatient to follow-up with your PCP. All patient's labs are now returning to his baseline. Patient is now clinically stable and fit for discharge to home. Discharge diagnoses: 1. Decompensated alcoholic cirrhosis with ascites, coagulopathy and thrombocytopenia 2. Esophageal varices s/p band ligation (03/11/2024) 3. Likely left base pneumonia 4. Pulmonary nodules 5. Hyperbilirubinemia 6. Hypoalbuminemia 7. Pseudo hypocalcemia Discharge plan: ? Recommend following up with [facility] within 2 weeks of discharge from hospital. Discontinue taking NSAIDs like ibuprofen, Aleve, Motrin, recommend taking Tylenol for pain if required. ?Has been started on a water pill Lasix. Take 1 tablet once a day for abdominal swelling ?You have been started on spironolactone. Take 1 tablet 2 times a day.. ?Follow a low-salt diet ?Take your weight daily. If it increases by 5-10 pounds in one day, consult your PCP - Take lactulose 3 times daily or until 2-3 soft bowel movements per day, hold if diarrhea. ?Follow-up with your primary care physician within 5 days of discharge from hospital. ?Recommend Interval CT scan as outpatient to monitor Pulmonary nodules. ?Recommend to follow up with a Liver specialist - If you experience any new, worsening or persistent symptoms either call your PCP, dial 911 or present to the emergency department. We are grateful to be able to participate in Mr. Anderson's care. We wish him the best. Plan of care discussed with Attending Dr. Al and PGY2 Dr. Cecelia Norris MD PGY 1 Time Spent with Patient Time attestation: Total time spent providing and/or coordinating discharge services: Exam Vital Signs Temp Pulse Resp BP Pulse Ox O2 Del Method O2 Flow Rate 97.3 F 57 L 18 110/63 98 Room Air 3 03/16/24 08:00 03/16/24 08:17 03/16/24 08:00 03/16/24 08:17 03/16/24 08:00 03/16/24 08:00 03/16/24 00:00 Narrative Exam Constitutional Alert, oriented x 3 and comfortable. Young male, scleral icterus - improving HEENT Vision grossly intact. Patent nares. Trachea midline. Left eye subconjunctival hemorrhage Respiratory Chest normal on inspection and clear auscultation bilaterally Cardiovascular S1 and S2 audible, RRR. No murmurs carotid bruit. No gross JVD. Abdominal Tense, distended and nontender to palpation in all quadrants. Umbilicus inverted and bowel sounds present Genitourinary No bladder tenderness, no flank pain. Normal to palpation Musculoskeletal Extremities tone within normal limits. No LE edema. Neurological CN II - XII grossly intact. Extremity motor and sensation grossly intact. Skin Warm, dry and intact. No apparent lesions. Psychiatric Patient has good affect, is cooperative Discharge Plan Plan Patient Disposition: HOME (Self Care) Patient condition on transfer: Stable Care Plan Goals: Recommend following up with [facility] within 2 weeks of discharge from hospital. Discontinue taking NSAIDs like ibuprofen, Aleve, Motrin, recommend taking Tylenol for pain if required. Has been started on a water pill Lasix. Take 1 tablet once a day for abdominal swelling You have been started on spironolactone. Take 1 tablet 2 times a day.. Follow a low-salt diet Take your weight daily. If it increases by 5-10 pounds in one day, consult your PCP Take lactulose 3 times daily or until 2-3 soft bowel movements per day, hold if diarrhea. Follow-up with your primary care physician within 5 days of discharge from hospital. Recommend Interval CT scan as outpatient to monitor Pulmonary nodules. Recommend to follow up with a Liver specialist If you experience any new, worsening or persistent symptoms either call your PCP, dial 911 or present to the emergency department. Prescriptions/Referrals Prescriptions/Med Rec: New spironolactone 25 mg Tablet 25 mg PO BID 30 Days Qty: 60 0RF lactulose 20 gram/30 mL Solution 20 g PO TID 30 Days Qty: 2700 0RF furosemide [Lasix] 40 mg tablet 40 mg PO QDAY Qty: 30 0RF pantoprazole 40 mg tablet,delayed release (DR/EC) 40 mg PO QDAY Qty: 30 0RF Discontinued ibuprofen 800 mg tablet 800 mg PO TID PRN (Reason: pain) Qty: 30 0RF Referrals: Jett Marc PA-C [Primary Care Provider] - Patient/Caregiver Discharge Instructions Other Discharge Diet Instructions: can be discharged after Octreotide infusion is completed Education Materials: Treating Cirrhosis, Understanding Cirrhosis, Discharge Instructions for ..., ED Ascites Print Language: Cypriot Stand Alone Forms: Nicolette Award Info., Patient Portal Info Letter Discharge Order Discharge Orders: Discharge (Routine); Ordered 03/16/24 Ordered By: Gurmeet Norris Quality Discharge Quality Measures none (Contraindicated) MD Attestestation MD Attestation I have discussed and was present for the essential components of the discharge history, physical examination, diagnosis, and discharge treatment plan with the resident. I agree with the patient's discharge care as documented by the resident and amended herein by me. Franco Al DO. The patient understood all discharge instructions, all questions were answered satisfactorily. The patient was instructed to return to the Emergency Department is symptoms worsened or persisted. Patient was stable, afebrile, tolerating p.o. intake and ambulatory at time of discharge Although this document has been carefully reviewed, there may still be some phonetic and other typographical errors. These errors are purely grammatical due to imperfections in the software program and should not be construed in any way to compromise the substance of the patient's medical care during this visit.
--- NOTE | 2024-03-16 09:39 | PC.SS ---
Follow up note: Pt is completing his 5 day course of IV Octreotide today. Pt will d/c home today.
[2024-03-16 11:07] LABS: Slide Review Platelets confirmed
--- NOTE | 2024-03-16 13:17 | PD.IMPROG ---
Documentation for date of: 03/16/24 Subjective Subjective Interval history: 38 years old male evaluated okay to discharge home Exam Vital Signs Temp Pulse Resp BP Pulse Ox O2 Del Method O2 Flow Rate 97.7 F 63 18 107/69 99 Room Air 3 03/16/24 12:00 03/16/24 12:00 03/16/24 12:00 03/16/24 12:00 03/16/24 12:00 03/16/24 12:00 03/16/24 00:00 Objective Labs 03/16/24 04:49 03/16/24 04:49 Labs: Laboratory Results - last 24 hr 03/16/24 04:49 WBC 5.7 RBC 3.64 L Hgb 12.2 L Hct 34.4 L MCV 95 MCH 33.5 MCHC 35.5 RDW Std Deviation 51.6 H Plt Count 57 L Neut % (Auto) 64 Lymph % (Auto) 16 [place] % (Auto) 12 Eos % (Auto) 8 Baso % (Auto) 1 Neut # (Auto) 3.7 Lymph # (Auto) 0.9 L [place] # (Auto) 0.7 Eos # (Auto) 0.4 Baso # (Auto) 0.1 Immature Gran # (Auto) 0.01 H Absolute Nucleated RBC 0.00 Immature Gran % 0 Nucleated RBC % 0 Sodium 134 L Potassium 3.7 Chloride 97 L Carbon Dioxide 29.8 Anion Gap 7 BUN 9 Creatinine 0.7 Estim Creat Clear Calc 142.8 eGFR > 60 BUN/Creatinine Ratio 13 Glucose 88 Calculated Osmolality 265 L Calcium 7.9 L Corrected Calcium 9.0 Phosphorus 3.7 Magnesium 1.6 Total Bilirubin 5.7 H AST 42 H ALT 21 Alkaline Phosphatase 103 Total Protein 6.4 Albumin 2.6 L Globulin 3.8 H Albumin/Globulin Ratio 0.7 L Misc Test Result Platelets confirmed Impressions Impression: Acute decompensation of the coronary disease secondary to alcohol status post band ligation of esophageal varices okay to discharge patient home to be followed by the PCP Assessment & Plan A&P Narrative # Acutely decompensated chronic liver disease secondary to alcohol with coagulopathy and thrombocytopenia # Advanced portal hypertension with intractable ascites # Detail edema # Esophageal and perigastric varices suggestions 2 g sodium diet recommend dietary consultation for that as it is extremely difficult to do 1 L p.o. fluid striction in 24 hours Lasix 40 mg IV push daily Spironolactone 25 mg p.o. twice daily Metolazone 5 milligram p.o. daily N.p.o. midnight tonight for an upper endoscopy tomorrow to prophylactically band ligated esophageal varices to improve his morbidity and mortality from GI bleed Emphasized complete abstain from alcohol advised to join AA thank you for the opportunity to participate in the care of this patient Time Spent With Patient Time: Total time spent is greater than 50% in coordination of care (as documented) at patient's floor/unit and/or counseling patient:
--- NOTE | 2024-03-16 13:31 | PC.NURSE ---
Per Md Ornelas hold pts discharge until octeotride gtt is completed
== END 2024-03-16 18:35 | disposition home or self-care (01) | DRG 280 ==
LOC: SERX 15:45 → SERHOLD 16:32 → S3SX 21:50
PROVIDERS: Nurse Practitioner Family; Specialist; Student in an Organized Health Care Education/Training Program; Admitting Provider Internal Medicine; Emergency Provider Emergency Medicine; PCP Family Medicine; Visit Provider Student in an Organized Health Care Education/Training Program
PROC: (CPT 43239; principal; 2024-03-11 18:30)
DX: K70.31 Alcoholic cirrhosis of liver with ascites (principal); F12.90 Cannabis use, unspecified, uncomplicated; D69.6 Thrombocytopenia, unspecified; F10.10 Alcohol abuse, uncomplicated; D68.9 Coagulation defect, unspecified; J18.9 Pneumonia, unspecified organism; R14.0 Abdominal distension (gaseous); R91.1 Solitary pulmonary nodule; K76.6 Portal hypertension; E88.09 Other disorders of plasma-protein metabolism, not elsewhere classified; I85.10 Secondary esophageal varices without bleeding; K29.70 Gastritis, unspecified, without bleeding; E83.51 Hypocalcemia; Z79.899 Other long term (current) drug therapy
CPT/HCPCS: 36415; 71260; 74177; 80048; 80053; 80061; 80074; 80076; 80320; 81001; 82040; 82150; 83690; 83735; 83880; 84100; 84443; 85025; 85610; 85730; 86331; 86635; 87040; 87811; 96365; 96367; 99285; A4649; C1729; J0456; J0696; J1200; J1940; J2250; J2354; J2470; J3010; J3475; J7050; P9047; Q9967; A9270; G0480

== ENCOUNTER 2024-07-25 13:38 | Emergency (ER) | payer MEDICAID, SELFPAY ==
[2024-07-25 13:39] VITALS: BMI 23.4
[2024-07-25 13:51] VITALS: BP 111/68; PULSE 64; PULSE 69; RESP 18; TEMP 36.9; O2SAT 96; BMI 25.4
--- NOTE | 2024-07-25 13:51 | XR_ITS ---
Examination: Ultrasound-guided paracentesis Abdominal sonogram limited Date and time of exam: July 25, 2024 1458 hours INDICATIONS: Cirrhosis, increasing ascites and abdominal distention this week Informed consent provided. A timeout was completed verifying correct patient, procedure, site, positioning, and special adequate movement if applicable. Technique: Multiple sonographic images of the abdomen have been obtained. Appropriate area for paracentesis was marked. Local anesthesia is obtained with 1% lidocaine. Yueh catheter is successfully introduced. Findings: Abdominal sonographic images demonstrate sufficient ascitic fluid for paracentesis. After placing the Yueh catheter, 5250 cc of fluid were successfully removed. During and after completion of the procedure the patient appear in satisfactory and stable condition with no complications observed. Estimated blood loss 0 cc Impression: Abdominal ascites Successful ultrasound-guided paracentesis as described above
[2024-07-25 14:16] VITALS: BP 108/69; PULSE 68; RESP 21; TEMP 36.7; O2SAT 98
[2024-07-25 14:25] LABS: Basophils % (Auto) 1 % (0-2.5); Eosinophils # (Auto) 0.1 Thou/mm3 (0.0-0.5); Eosinophils % (Auto) 3 % (0-10); Hemoglobin 11.9 g/dL (13.5-16.0); Immature Granulocytes % (Auto) 0 % (0-0); Immature Granulocytes Auto 0.01 Thou/mm3 (0.00-0.00); Lymphocytes # (Auto) 0.8 Thou/mm3 (1.0-4.8); Lymphocytes % (Auto) 18 % (10-50); Mean Corpuscular HGB Conc 36.1 g/dl (31.0-37.0); Mean Corpuscular Hemoglobin 32.6 pg (25.0-35.0); Mean Corpuscular Volume 90 fL (80-100); Monocytes # (Auto) 0.4 Thou/mm3 (0.0-0.8); Monocytes % (Auto) 10 % (0-12); Neutrophils # (Auto) 3.1 Thou/mm3 (1.8-7.7); Neutrophils % (Auto) 69 % (37-80); Nucleated Red Blood Cell % 0 /100 WBC (0); RDW Standard Deviation 51.9 fL (35.1-43.9); Red Blood Count 3.65 Miln/mm3 (4.50-5.90); White Blood Count 4.5 Thou/mm3 (3.8-10.6)
[2024-07-25 14:28] LABS: Platelet Count 61 Thou/mm3 (140-440)
[2024-07-25 14:36] LABS: INR 1.6 (0.9-1.3); Partial Thromboplastin Time 32.2 Seconds (22.0-36.0); Prothrombin Time 17.1 Seconds (9.0-12.2)
[2024-07-25 14:41] LABS: Alanine Aminotransferase 32 U/L (10-49); Albumin, Serum 2.9 gm/dL (3.5-5.0); Albumin/Globulin Ratio 0.9 (1.2-2.2); Alkaline Phosphatase 131 U/L (46-116); Anion Gap 7 (7-16); Aspartate Amino Transferase 64 U/L (0-34); BUN/Creatinine Ratio 15 Ratio (12-20); Blood Urea Nitrogen 9 mg/dL (9-23); Calcium 8.5 mg/dL (8.3-10.6); Calcium (Corrected) 9.4 mg/dL (8.5-10.1); Carbon Dioxide 24.3 mMol/L (20.0-31.0); Chloride 104 mMol/L (98-107); Creatinine (Component) 0.6 mg/dL (0.6-1.3); Estimated Creatinine Clearance 152.1 mL/min (>60); Globulin 3.2 gm/dL (2.3-3.5); Glucose 100 mg/dL (74-106); Osmolality,Calculated 268 (275-295); Potassium 3.7 mMol/L (3.4-5.1); Sodium 135 mMol/L (136-145); Total Protein 6.1 gm/dL (5.7-8.2); eGFR > 60 See Note
[2024-07-25 15:18] LABS: Slide Review Platelets confirmed
[2024-07-25 16:00] VITALS: BP 110/70; PULSE 71; RESP 21; TEMP 36.7; O2SAT 98
--- NOTE | 2024-07-25 16:41 | EDNOTE_ITS ---
ED Abdominal Pain RME/HPI General Chief Complaint: General Adult/Misc Complain Stated complaint: CAME FOR PARACENTESIS; PT HAS ASCITES Time seen by provider: 07/25/24 13:50 Arrival date/time: 07/25/24 13:38 Limitations: no limitations RME / HPI RME / HPI narrative: 39 year old male with history of alcoholic cirrhosis with ascites, esophageal varices s/p band ligation presents to the ED for evaluation of abdominal distention and discomfort today. Patient reports he was admitted here March of this year for similar symptoms and had a paracentesis performed. States since then, he has taken Spiranolactone and doing well. However, noted in the last several days his abdomen is becoming more distended. Denies any shortness of breath, pain, or fevers. Related Data Previous Rx's ?Medication ?Instructions ?Recorded furosemide 40 mg tablet (Lasix) 40 mg PO QDAY #30 tabs 03/11/24 pantoprazole 40 mg tablet,delayed 40 mg PO QDAY #30 ta bs 03/11/24 release Allergies Allergy/AdvReac Type Severity Reaction Status Date / Time No Known Allergies Allergy Verified 07/25/24 13:41 Review of Systems Review of Systems Systems Reviewed: All systems reviewed, normal except as documented Past Medical History Past Medical History NEUROLOGIC: Negative Seizures CARDIAC: Positive Edema; Negative Cardiac Disorders or Congestive Heart Failure RESPIRATORY: Negative Chronic Obstructive Pulmonary Disease (COPD) or Asthma GASTROINTESTINAL: Positive Gastrointestinal Disorders and Cirrhosis GENITOURINARY: Negative Renal Disease ENDOCRINE: Negative Diabetes Mellitus Type 1 or Diabetes Mellitus Type 2 HEMATOLOGIC: Negative Sickle Cell Disease OTHER HISTORY: Negative Blood Transfusions or Anesthesia Reactions Social History SMOKING STATUS: Never smoker ED Exam General Limitations: Present no limitations General appearance: Present alert and in no apparent distress Head Head exam: Present atraumatic, normocephalic and other (bitemporal wasting ) Eye Eye exam: Present normal appearance, PERRL and EOMI ENT ENT exam: Present normal exam, normal oropharynx and mucous membranes moist Neck Neck exam: Present normal inspection, full ROM and trachea midline Chest Chest inspection: Present normal inspection and symmetric chest wall rise Respiratory Respiratory exam: Present normal lung sounds bilaterally Cardiovascular Cardiovascular exam: Present regular rate, normal rhythm and normal heart sounds Abdominal Exam Abdominal exam: Present soft, distention (with positive fluid wave shift ), normal bowel sounds and other (No venous pattern on abdomen ) Extremities Exam Extremities exam: Present normal inspection, full ROM and other (pretibial edema BLE ) Back Exam Back exam: Present normal inspection and full ROM Neurological Exam Neurological exam: Present alert, oriented X3 and CN II-XII intact Psychiatric Psychiatric exam: Present normal affect and normal mood Skin Skin exam: Present warm, dry, intact and normal color Course Quality Measures none Orders Category Date Time Status Computer Forwarding System Markup Clerk STAT Care 07/25/24 13:51 Completed Continuous Pulse Oximetry STAT Care 07/25/24 13:51 Completed Insert IV STAT Care 07/25/24 13:51 Completed NPO STAT Care 07/25/24 13:51 Completed US paracentesis abd w/image Stat Exams 07/25/24 13:51 Completed CBC Stat Lab 07/25/24 14:05 Completed Comprehensive Metabolic Panel Stat Lab 07/25/24 14:05 Completed Partial Thromboplastin Time Stat Lab 07/25/24 14:05 Completed Prothrombin Time with INR Stat Lab 07/25/24 14:05 Completed Lidocaine 1% Pf 30 ml [Xylocaine 1% Pf 30 ml] Med 07/25/24 15:03 Discontinued 30 ml .ROUTE .STK-MED ONE Vital Signs Vital signs: Vital Signs Temperature 98.4 F 07/25/24 13:51 Pulse Rate 64 07/25/24 13:51 Respiratory Rate 18 07/25/24 13:51 Blood Pressure 111/68 07/25/24 13:51 Pulse Oximetry (%) 96 07/25/24 13:51 Oxygen Delivery Method Room Air 07/25/24 13:51 Pulse ox is 96% on room air which is adequate. Abdominal Pain MDM MDM Narrative MDM Narrative:: Apple Victor am scribing for and in the presence of Dr. Alanis. Patient data External records reviewed:: [facility] previous records (I reviewed admission from 03/10/2024-03/16/2024 ) Clinical information provided by:: patient Social determinants that could affect healthcare access:: alcohol use Patient has the following chronic illnesses:: alcoholic cirrhosis with ascites, esophageal varices s/p band ligation How is presenting disease/condition affected by chronic disease/condition?: exacerbated by Evaluation data The following diagnostics were reviewed and interpreted by me:: lab results and radiology exam(s) Lab and/or radiology exams considered but not ordered:: None Interpretation Summary: Ordering Physician: Cornelio Alanis MD Date of Service: 07/25/24 Procedure(s): US paracentesis abd w/image Accession Number(s): [id number] cc: Jett Marc PA-C; Cornelio Alanis MD; Marv Myles MD~ Examination: Ultrasound-guided paracentesis Abdominal sonogram limited Date and time of exam: July 25, 2024 1458 hours INDICATIONS: Cirrhosis, increasing ascites and abdominal distention this week Informed consent provided. A timeout was completed verifying correct patient, procedure, site, positioning, and special adequate movement if applicable. Technique: Multiple sonographic images of the abdomen have been obtained. Appropriate area for paracentesis was marked. Local anesthesia is obtained with 1% lidocaine. Yueh catheter is successfully introduced. Findings: Abdominal sonographic images demonstrate sufficient ascitic fluid for paracentesis. After placing the Yueh catheter, 5250 cc of fluid were successfully removed. During and after completion of the procedure the patient appear in satisfactory and stable condition with no complications observed. Estimated blood loss 0 cc Impression: Abdominal ascites Successful ultrasound-guided paracentesis as described above Dictated By: Marv Myles MD Signed By: <Electronically signed by Marv Myles MD in OV> 07/25/24 1549 Medications / Prescriptions Medications or Prescriptions considered but not ordered:: None Medication administrations:: Medication Administration History Discontinued Medications Lidocaine HCl (Lidocaine Inj Pf 1% 30 Ml Vial) Confirm Administered Dose 30 ml .ROUTE .STK-MED ONE Stop: 07/25/24 15:04 Last Admin: 07/25/24 16:08 Dose: Not Given Documented By: DB Non-Admin Reason: Other, see note Comments: MED GIVEN AT US See above Consultations Consultation(s) initiated? (list below): No Diagnosis Differential diagnosis abdominal pain: abdominal pain, constipation and other (ascites n) Most likely diagnosis given after review of the tests above:: s/p paracentesis cirrhosis ascites Admission Indicated Admission indicated?: not indicated Admission Request Was there a request for admission?: No Disposition Plan Disposition Plan: Discharge Discharge Attestation Discharge Attestation: The patient and all family members were given an opportunity to ask questions and understood the discharge instructions. Discharge instructions specifically effects, indications for sooner follow up or return to the emergency department, and the expected course of current diagnosis. Patient condition: Stable Discharge Plan Plan Patient Disposition: HOME (Self Care) Prescriptions/Referrals Prescriptions/Med Rec: No Action furosemide [Lasix] 40 mg tablet 40 mg PO QDAY Qty: 30 0RF pantoprazole 40 mg tablet,delayed release (DR/EC) 40 mg PO QDAY Qty: 30 0RF Referrals: Jett Marc PA-C [Primary Care Provider] - In 1 week Problem List Clinical Impression: Cirrhosis, Ascites, Status post abdominal paracentesis Patient/Caregiver Discharge Instructions Education Materials: Paracentesis Dc Additional Instructions: Follow-up with your primary care doctor in 3 to 5 days for recheck. You can return to the emergency department sooner if symptoms worsen or if you notice any new, concerning issues. Print Language: Syriac Stand Alone Forms: Nicolette Award Info., Patient Portal Info Letter
[2024-07-25 16:46] VITALS: BP 120/82; PULSE 61; RESP 12; O2SAT 99
== END 2024-07-25 16:48 | disposition home or self-care (01) ==
PROVIDERS: Emergency Provider Family Medicine; PCP Family Medicine
DX: K70.31 Alcoholic cirrhosis of liver with ascites (principal)
CPT/HCPCS: 49083; 36415; 80053; 85025; 85610; 85730; 99284; C1729

== ENCOUNTER 2024-08-10 21:22 | Emergency (ER) | payer MEDICAID, SELFPAY ==
[2024-08-10 21:23] VITALS: BMI 23.6
[2024-08-10 21:50] VITALS: BP 127/80; PULSE 93; RESP 18; TEMP 37; O2SAT 96
[2024-08-10] MEDS: HYDROcodone/APAP 5/325 TABLET 1 TAB PO (22:25)
--- NOTE | 2024-08-11 05:03 | PD.EDABDPN ---
ED Abdominal Pain RME/HPI General Chief Complaint: Abdominal Pain Stated complaint: ABD PAIN AND DISTENTION, BACK PAIN Time seen by provider: 08/10/24 22:10 Arrival date/time: 08/10/24 21:22 39M with history of alcoholic cirrhosis presents to ED with ab fullness and wants to be tapped. Patient also has constipation because he hasn't been taking his lactulose. Limitations: no limitations Related Data Previous Rx's ?Medication ?Instructions ?Recorded furosemide 40 mg tablet (Lasix) 40 mg PO QDAY #30 tabs 03/11/24 pantoprazole 40 mg tablet,delayed 40 mg PO QDAY #30 tabs 03/11/24 release Allergies Allergy/AdvReac Type Severity Reaction Status Date / Time No Known Allergies Allergy Verified 08/10/24 21:23 Review of Systems Review of Systems Systems Reviewed: All systems reviewed, normal except as documented Constitutional Constitutional: Reports system reviewed and no additional complaints, except as documented, Denies fever(s) and Denies headache(s) ENT Ears, Nose, Mouth, and Throat: Denies disequilibrium and Denies headache(s) Cardiovascular Cardiovascular: Reports system reviewed and no additional complaints, except as documented, Denies chest pain and Denies dyspnea Respiratory Respiratory: Reports system reviewed and no additional complaints, except as documented, Denies cough and Denies dyspnea Gastrointestinal Gastrointestinal: Reports system reviewed and no additional complaints, except as documented, Reports as per HPI, Denies abdominal pain, Reports constipation, Denies nausea and Denies vomiting Neurologic Neurologic: Reports system reviewed and no additional complaints, except as documented, Denies confusion, Denies disequilibrium and Denies headache(s) Psychiatric Psychiatric: Denies confusion Past Medical History Past Medical History NEUROLOGIC: Negative Seizures CARDIAC: Positive Edema; Negative Cardiac Disorders or Congestive Heart Failure RESPIRATORY: Negative Chronic Obstructive Pulmonary Disease (COPD) or Asthma GASTROINTESTINAL: Positive Gastrointestinal Disorders and Cirrhosis GENITOURINARY: Negative Renal Disease ENDOCRINE: Negative Diabetes Mellitus Type 1 or Diabetes Mellitus Type 2 HEMATOLOGIC: Negative Sickle Cell Disease OTHER HISTORY: Negative Blood Transfusions or Anesthesia Reactions Social History SMOKING STATUS: Never smoker ED Exam General Limitations: Present no limitations General appearance: Present alert and in no apparent distress Head Head exam: Present atraumatic Eye Eye exam: Present normal appearance, PERRL and EOMI ENT ENT exam: Present normal exam, normal oropharynx and mucous membranes moist Neck Neck exam: Present normal inspection, full ROM and trachea midline Chest Chest inspection: Present normal inspection and symmetric chest wall rise Respiratory Respiratory exam: Present normal lung sounds bilaterally Cardiovascular Cardiovascular exam: Present regular rate, normal rhythm and normal heart sounds Abdominal Exam Abdominal exam: Present soft, distention and normal bowel sounds Extremities Exam Extremities exam: Present normal inspection and full ROM Back Exam Back exam: Present normal inspection and full ROM Neurological Exam Neurological exam: Present alert, oriented X3 and CN II-XII intact Psychiatric Psychiatric exam: Present normal affect and normal mood Skin Skin exam: Present warm, dry, intact and normal color Course Quality Measures none Orders Category Date Time Status HYDROcodone*/APAP 5/325 [[place] 5/325] Med 08/10/24 22:10 Discontinued 1 tab PO X1 ONE Lactulose Syrup [Enulose Syrup] Med 08/10/24 22:10 Discontinued 20 gm PO X1 ONE Vital Signs Vital signs: Vital Signs Temperature 98.6 F 08/10/24 21:50 Pulse Rate 93 08/10/24 21:50 Respiratory Rate 18 08/10/24 21:50 Blood Pressure 127/80 08/10/24 21:50 Pulse Oximetry (%) 96 08/10/24 21:50 Oxygen Delivery Method Room Air 08/10/24 21:50 O2 at 96% on RA and WNLs Abdominal Pain MDM MDM Narrative MDM Narrative:: 39M with history of alcoholic cirrhosis presents to ED with ab fullness and wants to be tapped. Patient also has constipation because he hasn't been taking his lactulose. Physical exam reveals ab distention with fluid wave. Patient is afebrile, calm, and alert. Patient states he will return in AM for para since there isn't anyone to do it at night. He just wants pain meds. Patient data External records reviewed:: [facility] previous records Clinical information provided by:: patient Social determinants that could affect healthcare access:: none Patient has the following chronic illnesses:: alcoholic cirrhosis How is presenting disease/condition affected by chronic disease/condition?: caused by Evaluation data The following diagnostics were reviewed and interpreted by me:: other (specify) (none) Lab and/or radiology exams considered but not ordered:: not ordered Interpretation Summary: n/a Medications / Prescriptions Medications or Prescriptions considered but not ordered:: ordered Medication administrations:: Medication Administration History Discontinued Medications Hydrocodone Bitart/Acetaminophen (Hydrocodone/Apap 5/325 Tablet) 1 tab PO X1 ONE Stop: 08/10/24 22:11 Last Admin: 08/10/24 22:25 Dose: 1 tab Documented By: CHEN Lactulose (Lactulose Syrup 20 Gm/30 Ml Udc) 20 gm PO X1 ONE; Protocol Stop: 08/10/24 22:11 Last Admin: 08/10/24 22:26 Dose: Not Given Documented By: CHEN Non-Admin Reason: Patient Refused above Consultations Consultation(s) initiated? (list below): No Diagnosis Differential diagnosis abdominal pain: abdominal pain, acute appendicitis, calculus of kidney, constipation, diverticulitis, gastroenteritis, pancreatitis, small bowel obstruction and other (ascites) Most likely diagnosis given after review of the tests above:: ascites Admission Indicated Admission indicated?: not indicated Admission Request Was there a request for admission?: No Disposition Plan Disposition Plan: Discharge Discharge Attestation Discharge Attestation: The patient and all family members were given an opportunity to ask questions and understood the discharge instructions. Discharge instructions specifically effects, indications for sooner follow up or return to the emergency department, and the expected course of current diagnosis. Patient condition: Stable Discharge Plan Plan Patient Disposition: HOME (Self Care) Discharge Disposition comment: Stable Prescriptions/Referrals Prescriptions/Med Rec: No Action furosemide [Lasix] 40 mg tablet 40 mg PO QDAY Qty: 30 0RF pantoprazole 40 mg tablet,delayed release (DR/EC) 40 mg PO QDAY Qty: 30 0RF Problem List Clinical Impression: Ascites, Cirrhosis Patient/Caregiver Discharge Instructions Additional Instructions: Please follow-up with PCP within 24-48 hours and return immediately if symptoms worsen. Come back in AM for paracentesis. Take your lactulose. Print Language: Citizen [place] Stand Alone Forms: Patient Portal Info Letter PA/OG Supervising Physician ESPERANZA/OG Supervising Physician: Dr. Ríos
== END 2024-08-10 22:26 | disposition home or self-care (01) ==
LOC: SERX 22:29
PROVIDERS: Emergency Provider Emergency Medicine; PCP Family Medicine
DX: K70.31 Alcoholic cirrhosis of liver with ascites (principal)
CPT/HCPCS: 99283; A9270

== ENCOUNTER 2024-08-11 08:21 | Emergency (ER) | payer MEDICAID, SELFPAY ==
[2024-08-11 08:22] VITALS: BMI 23.6
[2024-08-11 08:30] VITALS: BP 119/76; PULSE 88; RESP 22; TEMP 36.9; O2SAT 96
--- NOTE | 2024-08-11 08:40 | XR_ITS ---
Examination: Ultrasound-guided paracentesis Abdominal sonogram limited Date and time of exam: August 11, 2024 1146 hours INDICATIONS: Cirrhosis, increasing ascites and abdominal distention this week Informed consent provided. A timeout was completed verifying correct patient, procedure, site, positioning, and special adequate movement if applicable. Technique: Multiple sonographic images of the abdomen have been obtained. Appropriate area for paracentesis was marked. Local anesthesia is obtained with 1% lidocaine. Yueh catheter is successfully introduced. Findings: Abdominal sonographic images demonstrate sufficient ascitic fluid for paracentesis. After placing the Yueh catheter, 7650 cc of fluid were successfully removed. During and after completion of the procedure the patient appear in satisfactory and stable condition with no complications observed. Estimated blood loss 0 cc Impression: Abdominal ascites Successful ultrasound-guided paracentesis as described above
--- NOTE | 2024-08-11 08:40 | PD.EDRME ---
Rapid Medical Screening Exam E Arrival date/time: 08/11/24 08:21 39-year-old male with a history of alcoholic liver cirrhosis presents to the emergency room with a chief complaint of abdominal distention and shortness of breath. Patient states he believes he needs a paracentesis. His last paracentesis was done 2 weeks ago and they removed 4 L. I have greeted and performed a focused initial assessment of this patient. A comprehensive ED assessment and evaluation of the patient, analysis of all test results, and completion of the medical decision making process will be conducted by additional ED providers. Chief Complaint: General Adult/Misc Complain Time Seen by Provider: 08/11/24 08:33 Vital signs: Vital Signs Temperature 98.4 F 08/11/24 08:30 Pulse Rate 88 08/11/24 08:30 Respiratory Rate 22 H 08/11/24 08:30 Blood Pressure 119/76 08/11/24 08:30 Pulse Oximetry (%) 96 08/11/24 08:30 Oxygen Delivery Method Room Air 08/11/24 08:30 Vital signs reviewed by provider: Yes
[2024-08-11 10:10] LABS: Basophils # (Auto) 0.0 Thou/mm3 (0.0-0.2); Basophils % (Auto) 1 % (0-2.5); Eosinophils # (Auto) 0.3 Thou/mm3 (0.0-0.5); Eosinophils % (Auto) 4 % (0-10); Hematocrit 34.7 % (41.0-53.0); Hemoglobin 12.7 g/dL (13.5-16.0); Immature Granulocytes Auto 0.02 Thou/mm3 (0.00-0.00); Lymphocytes # (Auto) 0.9 Thou/mm3 (1.0-4.8); Lymphocytes % (Auto) 14 % (10-50); Mean Corpuscular HGB Conc 36.6 g/dl (31.0-37.0); Mean Corpuscular Hemoglobin 33.1 pg (25.0-35.0); Mean Corpuscular Volume 90 fL (80-100); Monocytes # (Auto) 0.7 Thou/mm3 (0.0-0.8); Monocytes % (Auto) 12 % (0-12); Neutrophils # (Auto) 4.4 Thou/mm3 (1.8-7.7); Neutrophils % (Auto) 70 % (37-80); Nucleated Red Blood Cell # 0.00 Thou/mm3 (0.00-0.00); Nucleated Red Blood Cell % 0 /100 WBC (0); RDW Standard Deviation 49.5 fL (35.1-43.9); Red Blood Count 3.84 Miln/mm3 (4.50-5.90); White Blood Count 6.3 Thou/mm3 (3.8-10.6)
[2024-08-11 10:25] LABS: Platelet Count 69 Thou/mm3 (140-440)
[2024-08-11 10:28] LABS: Alanine Aminotransferase 27 U/L (10-49); Albumin, Serum 2.9 gm/dL (3.5-5.0); Albumin/Globulin Ratio 0.8 (1.2-2.2); Alkaline Phosphatase 115 U/L (46-116); Anion Gap 4 (7-16); Aspartate Amino Transferase 45 U/L (0-34); BUN/Creatinine Ratio 11 Ratio (12-20); Bilirubin,Total 6.2 mg/dL (0.3-1.2); Blood Urea Nitrogen 8 mg/dL (9-23); Calcium 8.2 mg/dL (8.3-10.6); Calcium (Corrected) 9.1 mg/dL (8.5-10.1); Carbon Dioxide 25.9 mMol/L (20.0-31.0); Chloride 103 mMol/L (98-107); Creatinine (Component) 0.7 mg/dL (0.6-1.3); Estimated Creatinine Clearance 139.8 mL/min (>60); Globulin 3.8 gm/dL (2.3-3.5); Glucose 93 mg/dL (74-106); Osmolality,Calculated 264 (275-295); Potassium 3.9 mMol/L (3.4-5.1); Sodium 133 mMol/L (136-145); Total Protein 6.7 gm/dL (5.7-8.2); eGFR > 60 See Note
[2024-08-11 10:31] LABS: INR 1.6 (0.9-1.3); Partial Thromboplastin Time 35.3 Seconds (22.0-36.0); Prothrombin Time 17.1 Seconds (9.0-12.2)
[2024-08-11 12:59] LABS: Slide Review Platelets confirmed
--- NOTE | 2024-08-11 14:07 | PC.NURSE ---
Addendum entered by Garry Reyes RN 08/11/24 14:10: PATIENT ENCOURAGED TO STAY FOR DISCHARGE INSTRUCTIONS. SEEN WALKING OUT SHORTLY AFTER. Original Note: PATIENT STATES HE GOT A CALL FROM PRIMARY DOCTOR TO BE SEEN NOW. PATIENT STATES HE DID HAVE PARACENTECIS AND FEELS BETTER. MADE AWARE THAT IF HE RETURNS THAT HE WILL NEED TO BE SEEN AGAIN.
== END 2024-08-11 14:10 | disposition left against medical advice (07) ==
PROVIDERS: Nurse Practitioner Family; Emergency Provider Family Medicine; PCP Family Medicine
DX: K70.31 Alcoholic cirrhosis of liver with ascites (principal); Z53.29 Procedure and treatment not carried out because of patient's decision for other reasons
CPT/HCPCS: 49083; 36415; 80053; 85025; 85610; 85730; 99284; C1729

== ENCOUNTER → 2024-09-02 | Outpatient (CLI) | payer MEDICAID, SELFPAY ==
--- NOTE | 2024-09-02 08:34 | XR_ITS ---
Examination: Abdomen sonogram, complete Date and time of exam: September 02, 2024 0841 hours INDICATIONS: Cirrhosis diagnosis with the right upper abdominal pain beginning 5 months ago. Technique: Multiple real-time grayscale transabdominal sonographic images of the abdomen have been obtained. Findings: Gallbladder sludge Gallbladder wall is thickened 0.5 cm but the patient has ascites Common bile duct 0.6 cm no stones Pancreatic head 2.6 cm Aorta not enlarged. Liver 12.2 cm fatty infiltration irregular contour, moderate ascites Normal hepatopedal portal venous flow Patent IVC Right kidney 10.2 cm renal cortex 2.2 cm Left kidney 10.8 cm cortex 2.0 cm Moderate renal parenchymal scar formation Minimal left hydronephrosis Spleen 13.7 cm IMPRESSION: Gallbladder sludge Cirrhosis Moderate ascites
== END | disposition home or self-care (01) ==
LOC: CDIM 08:22
PROVIDERS: PCP Family Medicine
DX: K70.31 Alcoholic cirrhosis of liver with ascites (principal)
CPT/HCPCS: 76700

== ENCOUNTER 2024-09-05 18:01 | Inpatient (IN) | payer MEDICAID, SELFPAY ==
[2024-09-05 18:02] VITALS: BMI 22.8
[2024-09-05 18:27] VITALS: BP 104/66; PULSE 76; RESP 18; TEMP 36.6; O2SAT 95
--- NOTE | 2024-09-05 18:54 | PD.EDRME ---
Rapid Medical Screening Exam RME Arrival date/time: 09/05/24 18:01 Chief Complaint: General Adult/Misc Complain Time Seen by Provider: 09/05/24 18:38 Vital signs: Vital Signs Temperature 97.9 F 09/05/24 18:27 Pulse Rate 76 09/05/24 18:27 Respiratory Rate 18 09/05/24 18:27 Blood Pressure 104/66 09/05/24 18:27 Pulse Oximetry (%) 95 09/05/24 18:27 Oxygen Delivery Method Room Air 09/05/24 18:27 Vital signs reviewed by provider: Yes RME Narrative: 39-year-old male with a history of cirrhosis and jaundice presents to the ED after his primary care physician told him to go to the ED due to critical low sodium. I have greeted and performed a focused initial assessment of this patient. A comprehensive ED assessment and evaluation of the patient, analysis of all test results, and completion of the medical decision making process will be conducted by additional ED providers.
[2024-09-05 19:25] LABS: Collection Type, Urine Clean Catch
[2024-09-05 19:34] LABS: Bilirubin,Urine Negative (Negative); Blood,Urine Negative (Negative); Clarity,Urine Clear (Clear/Hazy); Color,Urine Yellow (Lt Yel-Yel); Culture Indicated,Urine Not Indicated; Glucose, Urine Negative (Negative); Ketones,Urine Negative (Negative); Leukocyte Esterase,Urine Negative (Negative); Nitrite,Urine Negative (Negative); PH,Urine 6.0 (5.0-7.0); Protein,Urine Negative (Neg - Trace); RBC,Urine 2 /hpf (0-3); Specific Gravity,Urine 1.023 (1.001-1.035); Squamous Epithelial Cell,Urine 1 /hpf (0-5); Urobilinogen,Urine Negative mg/dL (0.0-1.0); WBC,Urine 1 /hpf (0-5)
[2024-09-05 19:35] LABS: Basophils # (Auto) 0.1 Thou/mm3 (0.0-0.2); Basophils % (Auto) 1 % (0-2.5); Eosinophils # (Auto) 0.1 Thou/mm3 (0.0-0.5); Eosinophils % (Auto) 2 % (0-10); Hematocrit 33.8 % (41.0-53.0); Hemoglobin 12.6 g/dL (13.5-16.0); Immature Granulocytes Auto 0.02 Thou/mm3 (0.00-0.00); Lymphocytes # (Auto) 0.6 Thou/mm3 (1.0-4.8); Lymphocytes % (Auto) 12 % (10-50); Mean Corpuscular HGB Conc 37.3 g/dl (31.0-37.0); Mean Corpuscular Hemoglobin 33.2 pg (25.0-35.0); Mean Corpuscular Volume 89 fL (80-100); Monocytes # (Auto) 0.7 Thou/mm3 (0.0-0.8); Monocytes % (Auto) 13 % (0-12); Neutrophils # (Auto) 3.6 Thou/mm3 (1.8-7.7); Neutrophils % (Auto) 71 % (37-80); Nucleated Red Blood Cell # 0.00 Thou/mm3 (0.00-0.00); Nucleated Red Blood Cell % 0 /100 WBC (0); Platelet Count 99 Thou/mm3 (140-440); RDW Standard Deviation 46.0 fL (35.1-43.9); Red Blood Count 3.79 Miln/mm3 (4.50-5.90); White Blood Count 5.1 Thou/mm3 (3.8-10.6)
[2024-09-05 19:42] LABS: INR 1.6 (0.9-1.3); Partial Thromboplastin Time 33.4 Seconds (22.0-36.0); Prothrombin Time 16.9 Seconds (9.0-12.2)
[2024-09-05 19:45] LABS: Amphetamine/Methamp Scrn,U Negative (Negative); Barbiturate Screen,Urine Negative (Negative); Benzodiazepines Screen,Urine Negative (Negative); Benzoylecgonine Screen, Ur Negative (Negative); Fentanyl Screen,Urine Negative (Negative); Opiate Screen,Urine Negative (Negative); THC Screen,Urine Negative (Negative)
[2024-09-05 19:54] LABS: Alanine Aminotransferase 52 U/L (10-49); Albumin, Serum 2.6 gm/dL (3.5-5.0); Albumin/Globulin Ratio 0.7 (1.2-2.2); Alkaline Phosphatase 133 U/L (46-116); Amylase 136 U/L (30-118); Aspartate Amino Transferase 84 U/L (0-34); BUN/Creatinine Ratio 10 Ratio (12-20); Bilirubin,Total 3.8 mg/dL (0.3-1.2); Blood Urea Nitrogen 7 mg/dL (9-23); Calcium 7.8 mg/dL (8.3-10.6); Calcium (Corrected) 8.9 mg/dL (8.5-10.1); Carbon Dioxide 22.2 mMol/L (20.0-31.0); Chloride 87 mMol/L (98-107); Creatinine (Component) 0.7 mg/dL (0.6-1.3); Estimated Creatinine Clearance 139.0 mL/min (>60); Globulin 3.6 gm/dL (2.3-3.5); Glucose 113 mg/dL (74-106); Lipase 101 U/L (12-53); Magnesium 1.4 mg/dL (1.6-2.6); Phosphorous 3.8 mg/dL (2.4-5.1); Potassium 4.7 mMol/L (3.4-5.1); Total Protein 6.2 gm/dL (5.7-8.2); eGFR > 60 See Note
[2024-09-05 19:55] LABS: Anion Gap 12 (7-16); Osmolality,Calculated 243 (275-295); Sodium 121 mMol/L (136-145)
--- NOTE | 2024-09-05 20:59 | PD.EDRECHK ---
ED Recheck Abnl Lab Rx-RME/HPI General Chief Complaint: General Adult/Misc Complain Stated Complaint: SENT BY PRIMARY FOR CRITICAL LABS Time Seen by Provider: 09/05/24 18:38 Arrival date/time: 09/05/24 18:01 RME / HPI RME / HPI narrative: 39-year-old male with a history of cirrhosis and jaundice presents to the ED after his primary care physician told him to go to the ED due to critical low sodium. I have greeted and performed a focused initial assessment of this patient. A comprehensive ED assessment and evaluation of the patient, analysis of all test results, and completion of the medical decision making process will be conducted by additional ED providers. DR. 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 Patient's sodium here is 121, and was 133 during his last visit on 08/11/2024. Per , patient underwent paracentesis approximately 2 weeks ago in a hospital in [place], and is receiving abdominal tap about every 2 weeks. Denies any issues with sodium levels prior to cirrhosis diagnosis last year. Patient also denies any family history of cirrhosis. No other concerns or complaints expressed at this time. Related Data Previous Rx's ?Medication ?Instructions ?Recorded furosemide 40 mg tablet (Lasix) 40 mg PO QDAY #30 tabs 03/11/24 pantoprazole 40 mg tablet,delayed 40 mg PO QDAY #30 tabs 03/11/24 release Allergies Allergy/AdvReac Type Severity Reaction Status Date / Time No Known Allergies Allergy Verified 09/05/24 18:02 Review of Systems Review of Systems Systems Reviewed: All systems reviewed, normal except as documented Past Medical History Past Medical History CARDIAC: Positive Edema GASTROINTESTINAL: Positive Gastrointestinal Disorders and Cirrhosis ED Exam Narrative Physical exam: Generally patient is alert cachectic and chronically ill-appearing, eyes show icteric sclera heart regular rate and rhythm lungs clear to auscultation equal bilaterally abdomen is distended nontender with a positive fluid wave extremities show no peripheral edema skin is mildly jaundiced cool pale and dry neurologic exam patient alert and oriented x 4 without focal motor deficit. Course Quality Measures none Orders Category Date Time Status IV [Insert IV] NOW Care 09/05/24 18:55 Active NPO STAT Care 09/05/24 18:55 Active Amylase Stat Lab 09/05/24 19:16 Completed CBC Stat Lab 09/05/24 19:16 Completed Comprehensive Metabolic Panel Stat Lab 09/05/24 19:16 Completed Drug Screen,Urine Stat Lab 09/05/24 19:17 Completed Lipase Stat Lab 09/05/24 19:16 Completed Magnesium Stat Lab 09/05/24 19:16 Completed PT [Prothrombin Time with INR] Stat Lab 09/05/24 19:16 Completed PTT [Partial Thromboplastin Time] Stat Lab 09/05/24 19:16 Completed Phosphorous Stat Lab 09/05/24 19:16 Completed Urinalysis, C/S if Indicated Stat Lab 09/05/24 19:17 Completed Sodium Chloride 0.9% 1000 ml [Ns] 1,000 ml Med 09/05/24 18:55 Discontinued IV 999 mls/hr Vital Signs Vital signs: Vital Signs Temperature 97.9 F 09/05/24 18:27 Pulse Rate 76 09/05/24 18:27 Respiratory Rate 18 09/05/24 18:27 Blood Pressure 104/66 09/05/24 18:27 Pulse Oximetry (%) 95 09/05/24 18:27 Oxygen Delivery Method Room Air 09/05/24 18:27 Recheck / Abnormal Lab / Rx MDM Narrative MDM Narrative:: Scribe Attestation: Nury Victor am scribing for and in the presence of Dr. Sutton. Provider Notation: Although this document has been carefully reviewed, there may still be some phonetic and other typographical errors.? These errors are purely grammatical due to imperfections in the software program and should not be construed in any way to? compromise the substance of the patient's medical care during this visit. Patient feels weak and the sodium is 121. He was started on normal saline drip at 150 cc/h. Patient has symptomatic hyponatremia and needs to be hospitalized. Case will be discussed with the hospitalist and the patient will be admitted to the hospital for further treatment and evaluation. Patient data External records reviewed:: [facility] previous records (Reviewed prior ED records from 08/11/24. Patient was seen for Alcoholic cirrhosis of liver with ascites.) Clinical information provided by:: patient and spouse () Social determinants that could affect healthcare access:: none Patient has the following chronic illnesses:: Cirrhosis How is presenting disease/condition affected by chronic disease/condition?: exacerbated by Evaluation data The following diagnostics were reviewed and interpreted by me:: lab results Lab and/or radiology exams considered but not ordered:: None Interpretation Summary: Refer to MDM above. Medications / Prescriptions Medications or Prescriptions considered but not ordered:: None Medication administrations:: Medication Administration History Discontinued Medications Sodium Chloride (Ns) 1,000 mls @ 999 mls/hr IV .Q1H1M ONE Stop: 09/05/24 19:55 Last Admin: 09/05/24 21:08 Dose: 999 mls/hr Documented By: YUMIKO See above if any Consultations Consultation(s) initiated? (list below): Yes Diagnosis Recheck Differential Diagnosis: other (Electrolyte imbalance, Hyponatremia, Hepatic Cirrhosis) Most likely diagnosis given after review of the tests above:: None Admission Indicated Admission indicated?: indicated Admission Request Was there a request for admission?: Yes Admission Attestation Admission request attestation: Discussed case with [] from Hospitalist service regarding admission. Discussed patients ED course, exam findings, labs, and radiology results. The Hospitalist [agrees,declines] to accept the patient for admission. Disposition Plan Disposition Plan: Admit Discharge Plan Plan Patient Disposition: Admit Acute Care w/in Hospital Prescriptions/Referrals Prescriptions/Med Rec: No Action furosemide [Lasix] 40 mg tablet 40 mg PO QDAY Qty: 30 0RF pantoprazole 40 mg tablet,delayed release (DR/EC) 40 mg PO QDAY Qty: 30 0RF Referrals: Talha Nation MD [Primary Care Provider] - In 1 week Problem List Clinical Impression: Acute hyponatremia, Hepatic cirrhosis, Ascites Patient/Caregiver Discharge Instructions Print Language: [place] Stand Alone Forms: Nicolette Award Info., Patient Portal Info Letter
[2024-09-05] MEDS: SODIUM CHLORIDE 0.9% 1000 ML 1,000 ML 999 ML IV (21:08)
[2024-09-05 21:45] VITALS: BP 102/63; PULSE 71; RESP 18; TEMP 36.5; O2SAT 99
--- NOTE | 2024-09-05 22:44 | EKG_ITS ---
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
--- NOTE | 2024-09-05 22:51 | ESHP_ITS ---
<Statement entered by Charan Montana MD - 09/07/24 07:31> I have discussed and was present for the essential components of the history, physical examination, diagnosis, and treatment plan with the resident. I agree with the patient's care as documented by the resident and amended herein by me. Charan Montana MD FACP. Documentation for date of: 09/05/24 HPI History of Present Illness History of present illness: Chidi Anderson is a 39-year-old male with a PMH of hepatic cirrhosis, ascites, and esophageal varices status post endoscopic band ligation who presents today with generalized weakness. Of note, patient was recently seen in the ED on 08/10/24 for ascites for which he received paracentesis. According to patient's , who was present at the time of interview, patient started feeling weak, tired, and sleepy starting 15 days ago. She says that he has recently been so fatigued that he cannot get out of bed. 2 days ago, the patient was seen by his PCP where it was found that his sodium level was 113 and patient was urged to seek treatment at the hospital. Besides generalized weakness, patient also endorses longstanding right upper quadrant abdominal pain and generalized body ache. He denies any recent travel history, sick contacts, or current pain outside of the abdominal pain. In the ED, vitals showed: BP 104/66 HR 76 RR 18 Temp 97.9 SpO2 95% on room air ED Course: CBC showed low Hgb 12.6 (MCV 89, RDW 46.0), and low platelet count 99. Coagulation panel showed prolonged PTT 16.9, and high INR 1.6. CMP showed marked hyponatremia 121, marked hypochloremia 87, low calculated osmolality 243, normal corrected calcium 8.9, hypomagnesemia 1.4, elevated total bilirubin 3.8, elevated AST 84 and ALT 52, elevated alkaline phosphatase 133, high ammonia 53, and elevated amylase 136 and lipase 101. UA, UDS, and ascitic fluid analysis were negative. Imaging: EKG showed sinus rhythm with borderline left axis deviation. In the ED, patient was given 1 L normal saline bolus, IV ceftriaxone, and magnesium. Patient was admitted for the work-up and management of symptomatic hyponatremia. Review of Systems Review of Systems Narrative Review of Systems: General: Endorses generalized weakness, lethargy, fatigue, and malaise. Denies fevers or chills HEENT: Denies congestion or sore throat Heart: Endorses palpitations and leg swelling. Denies chest pain Lungs: Endorses shortness of breath. Denies cough Abdomen: Endorses RUQ abdominal pain and diarrhea. Denies nausea, vomiting, constipation, or blood in stool Genitourinary: Endorses urinary retention. Denies frequency, urgency, dysuria, or hematuria Neurology: Denies any changes in vision or difficulty speaking Review of systems otherwise negative except what is mentioned above. Past Medical History Past Medical History NEUROLOGIC: Negative Seizures CARDIAC: Positive Edema; Negative Cardiac Disorders or Congestive Heart Failure RESPIRATORY: Negative Chronic Obstructive Pulmonary Disease (COPD) or Asthma GASTROINTESTINAL: Positive Gastrointestinal Disorders and Cirrhosis GENITOURINARY: Negative Renal Disease ENDOCRINE: Negative Diabetes Mellitus Type 1 or Diabetes Mellitus Type 2 HEMATOLOGIC: Negative Sickle Cell Disease OTHER HISTORY: Negative Blood Transfusions or Anesthesia Reactions Social History SMOKING STATUS: Never smoker Past Medical History Comments PMH COMMENT: PMH: Cirrhosis, esophageal varices PSH: Appendectomy, endoscopic band ligation Medications: Lasix, folic acid, polyethylene glycol, thiamine, pantoprazole, spironolactone, lactulose Allergies: None FH: Dad had colon cancer SH: Lives in a house in [place] with and son, drink a six-pack per day on average from age [age], no smoking history, history of marijuana use, no other recreational drug use Exam Vital Signs Temp Pulse Resp BP Pulse Ox O2 Del Method 97.7 F 71 18 102/63 99 Room Air 09/05/24 21:45 09/05/24 21:45 09/05/24 21:45 09/05/24 21:45 09/05/24 21:45 09/05/24 21:45 Narrative Exam Physical Exam: General: Frail, cachectic. Somnolent, lethargic appearing. No acute distress. Skin: Warm, dry, intact, no obvious rash. Head: Normocephalic, atraumatic. Eye: Normal conjunctiva, PERRL. Throat: Oral mucosa moist. No obvious lesions in oropharynx. Cardiovascular: Regular rate and rhythm, no murmur, +S1/S2. Respiratory: Lungs are clear to auscultation, respirations unlabored, no crackles, no wheezing. Gastrointestinal: Distended abdomen with shifting dullness and fluid wave. Tenderness to palpation of right upper quadrant abdomen. Soft, no guarding or rebound tenderness. Extremities: No edema, no cyanosis, no clubbing. 2+ radial pulse bilaterally, 2+ posterior tibial pulse bilaterally. Neuro: No asterixis noted. No focal deficits observed. Conversant, moving all extremities. No overt cerebellar signs/incoordination. Psychiatric: Cooperative, appropriate affect. Results: Labs 09/06/24 02:53 09/06/24 02:53 Labs: Short CBC 09/05/24 Range/Units 19:16 WBC 5.1 (3.8-10.6) Thou/mm3 Hgb 12.6 L (13.5-16.0) g/dL Hct 33.8 L (41.0-53.0) % Plt Count 99 L D (140-440) Thou/mm3 BMP 09/05/24 19:16 Sodium 121 L Potassium 4.7 Chloride 87 L Carbon Dioxide 22.2 BUN 7 L Creatinine 0.7 Glucose 113 H Calcium 7.8 L Liver Function 09/05/24 Range/Units 19:16 Total Bilirubin 3.8 H (0.3-1.2) mg/dL AST 84 H (0-34) U/L ALT 52 H (10-49) U/L Alkaline Phosphatase 133 H (46-116) U/L Albumin 2.6 L (3.5-5.0) gm/dL Urine 09/05/24 Range/Units 19:17 Urine Color Yellow (Lt Yel-Yel) Urine Clarity Clear (Clear/Hazy) Urine pH 6.0 (5.0-7.0) Ur Specific [place] 1.023 (1.001-1.035) Urine Protein Negative (Neg - Trace) Urine Glucose (UA) Negative (Negative) Quality Measures Quality Measures none Medications Home Medications and Allergies Home Medications ?Medication ?Instructions ?Recorded ?Confirmed ?Type folic acid 1 mg tablet 1 mg PO QDAY 09/06/24 History lactulose 10 gram/15 mL oral 30 ml PO BID 09/06/24 History solution polyethylene glycol 3350 17 17 g PO DAILY 09/06/24 History gram/dose oral powder rifaximin 550 mg tablet 550 mg PO BID 09/06/2409/06 History spironolactone 100 mg tablet 100 mg PO QDAY 09/06/24 0 09/06/24 History thiamine HCl (vitamin B1) 100 mg 100 mg PO QDAY 09/06/24 History tablet Allergies Allergy/AdvReac Type Severity Reaction Status Date / Time No Known Allergies Allergy Verified 09/05/24 18:02 Visit Medications Acetaminophen (Acetaminophen 325 Mg Tablet) 650 mg PO Q6H PRN PRN Reason: PAIN SCALE 1-3 (mild Stop: 10/05/24 22:35 Ceftriaxone Sodium 2 gm/ (Sodium Chloride) 50 mls @ 100 mls/hr IV QDAY [facility] Stop: 09/12/24 22:48 Lactulose (Lactulose Syrup 20 Gm/30 Ml Udc) 30 gm PO BID [facility]; Protocol Stop: 10/05/24 22:59 Ondansetron HCl (Ondansetron Inj 2 Mg/Ml Inj 2 Ml) 4 mg IVP Q6H PRN; Protocol PRN Reason: NAUSEA OR VOMITING Stop: 10/05/24 22:35 Sennosides (Senna Tablet) 1 tab PO QDAY PRN; Protocol PRN Reason: constipation Stop: 10/05/24 22:35 Tramadol HCl (Tramadol Hcl 50 Mg Tablet) 50 mg PO Q6HR PRN PRN Reason: Pain Scale 7-10 (Moderate Stop: 09/10/24 22:35 Discontinued Medications Sodium Chloride (Ns) 1,000 mls @ 999 mls/hr IV .Q1H1M ONE Stop: 09/05/24 19:55 Last Infusion: 09/05/24 22:34 Dose: Infused Assessment & Plan Assessment Chidi Anderson is a 39-year-old male with a PMH of hepatic cirrhosis, ascites, and esophageal varices status post endoscopic band ligation who presents today with generalized weakness. Patient was admitted for the work-up and management of symptomatic hyponatremia. #Symptomatic hyponatremia #likely 2/2 hepatic cirrhosis #Generalized weakness Initial presentation of hyponatremia with symptoms of generalized weakness, fatigue, and lethargy 09/05/24 @ 19:16: Sodium 121 09/05/24 @ 22:48: Sodium 119 09/06/24 @ 02:53: Sodium 119 Hyponatremia is most likely 2/2 patient's cirrhotic liver decreasing circulatory efficiency and causing kidneys to retain a disproportionate amount of water to maintain renal perfusion (via overproduction of ADH) Lack of asterixis makes patient's symptoms less likely to be attributable to hepatic encephalopathy Diagnostic Inquiry -CBC, CMP Treatment Plan -Hypertonic saline w/ goal of 4-6 mEq increase in sodium levels per day -Sodium levels q4HR -Neuro check q4HR -Fluid restriction 1800 mL/day -Strict I's & O's #Ascites #2/2 portal hypertension resulting from hepatic cirrhosis Ascitic fluid analysis was negative for SBP s/p paracentesis performed by ED physician (Dr. Solares) on 09/06/24 Diagnostic Inquiry -No current recommendation Treatment Plan -IV Lasix 40 mg qD -IV Rocephin 2 gm qHS for SBP prophylaxis -PO lactulose syrup 30 gm BID -Fluid restriction 1800 mL/day -Strict I's & O's #Normocytic anemia #Thrombocytopenia #Hx of esophageal varices s/p endoscopic band ligation #Hepatic cirrhosis Initial Hgb 12.6 (MCV 89, RDW 46.0), platelet count 71 Diagnostic Inquiry -Consider iron panel, ferritin, and reticulocyte count Treatment Plan -IV Protonix 40 mg BID -PO carvedilol 3.125 mg BID prevent bleeding from esophageal varices -Monitor Hgb, transfuse if <7 Hospital Management: Disposition: undergoing work-up and management of symptomatic hyponatremia Diet: cardiac GI Prophylaxis: IV Protonix 40 mg BID Bowel Prophylaxis: senna DVT Prophylaxis: SCDs (bleeding risk 2/2 cirrhosis) CODE STATUS: Full Code I have examined the patient and conferred with my attending, Dr. Montana, and my senior resident, Dr. Jauregui, regarding them. Rober Figueroa DO PGY-1 Internal Medicine
[2024-09-05 23:03] LABS: Sodium 119 mMol/L (136-145)
[2024-09-05 23:11] LABS: Ammonia 53 uMol/L (11-32)
[2024-09-05] MEDS: LACTULOSE SYRUP 20 GM/30 ML UDC 30 GM PO (23:23)
[2024-09-05 23:24] VITALS: BP 105/61; PULSE 73
[2024-09-05] MEDS: cefTRIAXone 2 GM in SODIUM CHLORIDE 0.9% (Popper) 50 ML IV (23:25)
[2024-09-05] MEDS: Magnesium Sulfate 4 GM Ivpb 4 GM/50 ML BAG IV (23:27)
[2024-09-06] VITALS (14 sets, daily range): BP systolic 82–106; BP diastolic 53–66; PULSE 62–78; RESP 12–22; TEMP 35.9–36.6; O2SAT 95–99; BMI 21.3
--- NOTE | 2024-09-06 00:12 | PD.EDADDENDU ---
Emergency Room Addendum Addendum Narrative: Procedure note: After consent was obtained and risk versus benefits and alternatives of treatment were explained to the patient, a right lower quadrant ultrasound-guided paracentesis is carried out here in the emergency room using the safety centesis tray and catheter over needle technique. The skin was cleansed using chlorhexidine to the right lower quadrant and anesthetized 1% lidocaine without epinephrine. A stab incision was introduced with an 11 blade scalpel. The catheter was introduced into the peritoneal cavity. Approximately 2500 cc of pink thick turbid fluid was removed from the peritoneal cavity. Patient tolerated the procedure well. Sterile technique was used for the entire procedure.
[2024-09-06 02:57] LABS: Peritoneal Fluid Mononuclear 90.6 %; Peritoneal Fluid Polynuclear 9.4 %; Peritoneal Fluid WBC 287 /cmm
[2024-09-06 03:00] LABS: Peritoneal Fluid Appearance Cloudy; Peritoneal Fluid Color Straw
[2024-09-06 03:01] LABS: RBC,Peritoneal Fluid 900 /cmm
[2024-09-06 03:16] LABS: Albumin, Peritoneal Fluid < 1.0 gm/dL; Amylase,Peritoneal Fluid 63 IU/L; Glucose,Peritoneal Fluid 115 mg/dL; LDH,Peritoneal Fluid 41 IU/L; Protein Total,Peritoneal Fluid < 2 g/dL
[2024-09-06 03:19] LABS: Basophils # (Auto) 0.0 Thou/mm3 (0.0-0.2); Basophils % (Auto) 1 % (0-2.5); Eosinophils # (Auto) 0.1 Thou/mm3 (0.0-0.5); Eosinophils % (Auto) 3 % (0-10); Hematocrit 32.1 % (41.0-53.0); Hemoglobin 11.8 g/dL (13.5-16.0); Immature Granulocytes Auto 0.01 Thou/mm3 (0.00-0.00); Lymphocytes # (Auto) 0.5 Thou/mm3 (1.0-4.8); Lymphocytes % (Auto) 12 % (10-50); Mean Corpuscular HGB Conc 36.8 g/dl (31.0-37.0); Mean Corpuscular Hemoglobin 33.1 pg (25.0-35.0); Mean Corpuscular Volume 90 fL (80-100); Monocytes # (Auto) 0.6 Thou/mm3 (0.0-0.8); Monocytes % (Auto) 13 % (0-12); Neutrophils # (Auto) 3.1 Thou/mm3 (1.8-7.7); Neutrophils % (Auto) 71 % (37-80); Nucleated Red Blood Cell # 0.00 Thou/mm3 (0.00-0.00); Nucleated Red Blood Cell % 0 /100 WBC (0); RDW Standard Deviation 46.9 fL (35.1-43.9); Red Blood Count 3.57 Miln/mm3 (4.50-5.90); White Blood Count 4.3 Thou/mm3 (3.8-10.6)
[2024-09-06] MEDS: SODIUM CHLORIDE 0.9% 1000 ML 1,000 ML 150 ML IV (03:23)
[2024-09-06 03:24] LABS: Platelet Count 71 Thou/mm3 (140-440)
[2024-09-06 03:37] LABS: Alanine Aminotransferase 48 U/L (10-49); Albumin, Serum 2.4 gm/dL (3.5-5.0); Albumin/Globulin Ratio 0.7 (1.2-2.2); Alkaline Phosphatase 117 U/L (46-116); Anion Gap 6 (7-16); Aspartate Amino Transferase 79 U/L (0-34); BUN/Creatinine Ratio 12 Ratio (12-20); Bilirubin,Total 2.8 mg/dL (0.3-1.2); Blood Urea Nitrogen 6 mg/dL (9-23); Calcium 7.3 mg/dL (8.3-10.6); Calcium (Corrected) 8.6 mg/dL (8.5-10.1); Carbon Dioxide 22.0 mMol/L (20.0-31.0); Chloride 91 mMol/L (98-107); Creatinine (Component) 0.5 mg/dL (0.6-1.3); Estimated Creatinine Clearance 194.7 mL/min (>60); Globulin 3.3 gm/dL (2.3-3.5); Glucose 109 mg/dL (74-106); Osmolality,Calculated 238 (275-295); Potassium 4.6 mMol/L (3.4-5.1); Total Protein 5.7 gm/dL (5.7-8.2); eGFR > 60 See Note
[2024-09-06 03:41] LABS: Sodium 119 mMol/L (136-145)
[2024-09-06 04:02] LABS: Slide Review Platelets confirmed
[2024-09-06] MEDS: SODIUM CHLORIDE 3%(Hypertonic) 500 ML in PRE-MIXED 1 BAG 25 ML IV (04:39)
[2024-09-06 07:30] LABS: Sodium 120 mMol/L (136-145)
[2024-09-06] MEDS: LACTULOSE SYRUP 20 GM/30 ML UDC 30 GM PO ×2 (08:09→20:27)
[2024-09-06] MEDS: FUROSEMIDE INJ 10 MG/ML 4ML VIAL 40 MG IVP (08:10)
[2024-09-06] MEDS: SODIUM CHLORIDE 3%(Hypertonic) 500 ML in PRE-MIXED 1 BAG 35 ML IV (09:45)
--- NOTE | 2024-09-06 10:47 | PD.RESCONSUL ---
HPI Data of Consult Consult date: 09/06/24 Requesting Physician: Charan Montana MD Admitting Provider: Charan Montana MD Attending Provider: Charan Montana MD Primary Care Provider: Talha Nation MD Consult Narrative Reason for consult: hyponatremia History of present illness: Chidi Anderson is a 39-year-old male with a PMH of hepatic cirrhosis, ascites, and esophageal varices status post endoscopic band ligation who presents today with generalized weakness. Of note, patient was recently seen in the ED on 08/10/24 for ascites for which he received paracentesis. On admission, patient's stated, who was present at the time of interview, patient started feeling weak, tired, and sleepy starting 15 days ago. She says that he has recently been so fatigued that he cannot get out of bed. 2 days ago, the patient was seen by his PCP where it was found that his sodium level was 113 and patient was urged to seek treatment at the hospital. Besides generalized weakness, patient also endorses longstanding right upper quadrant abdominal pain and generalized body ache. He denies any recent travel history, sick contacts, or current pain outside of the abdominal pain. This morning patient was seen and examined on the floors with at the bedside. Patient states he came to the hospital after his PCP saw his sodium levels were low. In addition to previously report history above, patient states he stopped drinking alcohol in December 2023. States he was diagnosed with Cirrhosis in February 2024. Patient states he is feeling okay, endorses some weakness still along with some RUQ pain. Patient denies personal/family of kidney disease. Patient denies any new complaints/concerns. Patient denies fever, chest pain, shortness of breath. ED Course: Vitals showed: BP 104/66 HR 76 RR 18 Temp 97.9 SpO2 95% on room air CBC showed low Hgb 12.6 (MCV 89, RDW 46.0), and low platelet count 99. Coagulation panel showed prolonged PTT 16.9, and high INR 1.6. CMP showed marked hyponatremia 121, marked hypochloremia 87, low calculated osmolality 243, normal corrected calcium 8.9, hypomagnesemia 1.4, elevated total bilirubin 3.8, elevated AST 84 and ALT 52, elevated alkaline phosphatase 133, high ammonia 53, and elevated amylase 136 and lipase 101. UA, UDS, and ascitic fluid analysis were negative. Imaging: EKG showed sinus rhythm with borderline left axis deviation. In the ED, patient was given 1 L normal saline bolus, IV ceftriaxone, and magnesium. Patient was admitted along with consult to nephrology for the work-up and management of symptomatic hyponatremia. cc:: cc: Charan Montana MD Review of Systems Review of Systems Narrative Review of Systems: General: Endorses some general weakness. Denies fevers or chills HEENT: Denies congestion or sore throat Heart: Denies chest pain or palpitations Lungs: Denies shortness of breath or cough Abdomen: Endorses RUQ pain/discomfort. Denies diarrhea, nausea, vomiting, constipation, bright red blood per rectum or melena Genitourinary: Denies frequency, urgency, dysuria, or hematuria Musculoskeletal: Denies joint pain or myalgias Neurology: Denies any changes in vision, weakness or difficulty speaking Past Medical History Past Medical History NEUROLOGIC: Negative Seizures CARDIAC: Positive Edema; Negative Cardiac Disorders or Congestive Heart Failure RESPIRATORY: Negative Chronic Obstructive Pulmonary Disease (COPD) or Asthma GASTROINTESTINAL: Positive Gastrointestinal Disorders and Cirrhosis GENITOURINARY: Negative Renal Disease ENDOCRINE: Negative Diabetes Mellitus Type 1 or Diabetes Mellitus Type 2 HEMATOLOGIC: Negative Sickle Cell Disease OTHER HISTORY: Negative Blood Transfusions or Anesthesia Reactions Social History SMOKING STATUS: Never smoker Past Medical History Comments PMH COMMENT: PMH: Cirrhosis, esophageal varices PSH: Appendectomy, endoscopic band ligation Medications: Lasix, folic acid, polyethylene glycol, thiamine, pantoprazole, spironolactone, lactulose Allergies: None FH: Dad had colon cancer SH: Lives in a house in [place] with and son, drink a six-pack per day on average from age [age], no smoking history, history of marijuana use, no other recreational drug use Exam Vital Signs Temp Pulse Resp BP Pulse Ox O2 Del Method 97.6 F 73 12 104/58 L 96 Room Air 09/06/24 08:00 09/06/24 08:11 09/06/24 08:00 09/06/24 08:11 09/06/24 08:00 09/06/24 08:00 Narrative Exam General: Awake and in no acute distress. Conversational and non-toxic appearing. HEENT: Normocephalic, atraumatic, mucous membranes moist. Heart: Regular rate and rhythm, normal S1 and S2, no murmurs. Lungs: Clear to auscultation with no wheezing or crackles. Abdomen: Soft, tender RUQ, Distended, shifting fluid wave, positive bowel sounds. ?No guarding or rebound tenderness. Neurologic: Alert and oriented x3, no gross neurological deficit, and patient able to move all 4 extremities. Extremities: No edema. Skin: No rash or ecchymoses. Results Labs 09/06/24 19:03 09/06/24 19:03 Labs: Short CBC 09/05/24 09/06/24 Range/Units 19:16 02:53 WBC 5.1 4.3 (3.8-10.6) Thou/mm3 Hgb 12.6 L 11.8 L (13.5-16.0) g/dL Hct 33.8 L 32.1 L (41.0-53.0) % Plt Count 99 L D 71 L D (140-440) Thou/mm3 BMP 09/05/24 09/05/24 09/06/24 19:16 22:48 02:53 Sodium 121 L 119 L* 119 L* Potassium 4.7 Chloride 87 L Carbon Dioxide 22.2 BUN 7 L Creatinine 0.7 Glucose 113 H Calcium 7.8 L 09/06/24 09/06/24 09/06/24 02:53 02:53 02:53 Sodium Cancelled Potassium 4.6 Cancelled Chloride 91 L Cancelled Carbon Dioxide 22.0 BUN Creatinine Glucose Calcium 09/06/24 09/06/24 09/06/24 02:53 02:53 02:53 Sodium Potassium Chloride Carbon Dioxide Cancelled BUN 6 L Cancelled Creatinine 0.5 L Cancelled Glucose 109 H Calcium 09/06/24 09/06/24 09/06/24 02:53 02:53 06:31 Sodium 120 L Potassium Chloride Carbon Dioxide BUN Creatinine Glucose Cancelled Calcium 7.3 L Cancelled Liver Function 09/05/24 09/06/24 09/06/24 Range/Units 19:16 02:53 02:53 Total Bilirubin 3.8 H 2.8 H D Cancelled (0.3-1.2) mg/dL AST 84 H 79 H (0-34) U/L ALT 52 H (10-49) U/L Alkaline Phosphatase 133 H (46-116) U/L Albumin 2.6 L (3.5-5.0) gm/dL 09/06/24 09/06/24 09/06/24 Range/Units 02:53 02:53 02:53 Total Bilirubin (0.3-1.2) mg/dL AST Cancelled (0-34) U/L ALT 48 Cancelled (10-49) U/L Alkaline Phosphatase 117 H Cancelled (46-116) U/L Albumin 2.4 L (3.5-5.0) gm/dL 09/06/24 Range/Units 02:53 Total Bilirubin (0.3-1.2) mg/dL AST (0-34) U/L ALT (10-49) U/L Alkaline Phosphatase (46-116) U/L Albumin Cancelled (3.5-5.0) gm/dL Urine 09/05/24 Range/Units 19:17 Urine Color Yellow (Lt Yel-Yel) Urine Clarity Clear (Clear/Hazy) Urine pH 6.0 (5.0-7.0) Ur Specific [place] 1.023 (1.001-1.035) Urine Protein Negative (Neg - Trace) Urine Glucose (UA) Negative (Negative) Quality Measures Quality Measures VTE prophylaxis Medications Home Medications and Allergies Home Medications ?Medication ?Instructions ?Recorded ?Confirmed ?Type folic acid 1 mg tablet 1 mg PO QDAY 09/06/24 09/06/24 History lactulose 10 gram/15 mL oral 30 ml PO BID 09/06/24 09/06/24 History solution polyethylene glycol 3350 17 17 g PO DAILY 09/06/24 09/06/24 History gram/dose oral powder rifaximin 550 mg tablet 550 mg PO BID 09/06/24 09/06/24 History spironolactone 100 mg tablet 100 mg PO QDAY 09/06/24 09/06/24 History thiamine HCl (vitamin B1) 100 mg 100 mg PO QDAY 09/06/24 09/06/24 History tablet Allergies Allergy/AdvReac Type Severity Reaction Status Date / Time No Known Allergies Allergy Verified 09/05/24 18:02 Visit Medications Acetaminophen (Acetaminophen 325 Mg Tablet) 650 mg PO Q6H PRN PRN Reason: PAIN SCALE 1-3 (mild Stop: 10/05/24 22:35 Carvedilol (Carvedilol 3.125 Mg Tablet) 3.125 mg PO BID [facility] Stop: 10/05/24 22:59 Last Admin: 09/06/24 08:11 Dose: 3.125 mg Sodium Chloride (Ns) 1,000 mls @ 150 mls/hr IV .Q6H40M [facility] Stop: 10/05/24 23:56 Last Infusion: 09/06/24 04:21 Dose: 0 mls/hr Sodium Chloride 500 ml/ IV (Miscellaneous Supplies) 500 mls @ 35 mls/hr IV X1 ONE Stop: 09/06/24 22:47 Last Admin: 09/06/24 09:45 Dose: 35 mls/hr Lactulose (Lactulose Syrup 20 Gm/30 Ml Udc) 30 gm PO BID [facility]; Protocol Stop: 10/05/24 22:59 Last Admin: 09/06/24 08:09 Dose: 30 gm Midodrine (Midodrine 2.5 Mg Tablet) 2.5 mg PO TID PRN PRN Reason: Hypotension Stop: 10/06/24 13:59 Ondansetron HCl (Ondansetron Inj 2 Mg/Ml Inj 2 Ml) 4 mg IVP Q6H PRN; Protocol PRN Reason: NAUSEA OR VOMITING Stop: 10/05/24 22:35 Pantoprazole Sodium (Pantoprazole Inj 40 Mg Vial) 40 mg IVP BID [facility] Stop: 10/05/24 22:59 Last Admin: 09/06/24 08:09 Dose: 40 mg Rifaximin (Rifaximin 550 Mg Tablet) 550 mg PO BID [facility] Stop: 09/13/24 20:59 Sennosides (Senna Tablet) 1 tab PO QDAY PRN; Protocol PRN Reason: constipation Stop: 10/05/24 22:35 Tramadol HCl (Tramadol Hcl 50 Mg Tablet) 50 mg PO Q6HR PRN PRN Reason: Pain Scale 7-10 (Moderate Stop: 09/10/24 22:35 Discontinued Medications Furosemide (Furosemide Inj 10 Mg/Ml 4ml Vial) 40 mg IVP QDAY [facility] Stop: 10/06/24 08:59 Last Admin: 09/06/24 08:10 Dose: 40 mg Sodium Chloride (Ns) 1,000 mls @ 999 mls/hr IV .Q1H1M ONE Stop: 09/05/24 19:55 Last Infusion: 09/05/24 22:34 Dose: Infused Ceftriaxone Sodium 2 gm/ (Sodium Chloride) 50 mls @ 100 mls/hr IV HS [facility] Stop: 09/13/24 20:59 Ceftriaxone Sodium 2 gm/ (Sodium Chloride) 50 mls @ 100 mls/hr IV X1 ONE Stop: 09/05/24 23:29 Last Infusion: 09/05/24 23:55 Dose: Infused Magnesium Sulfate (Magnesium Sulfate Ivpb) 4 gm in 50 mls @ 12.5 mls/hr IV X1 ONE Stop: 09/06/24 02:56 Last Admin: 09/05/24 23:27 Dose: 12.5 mls/hr Sodium Chloride 100 ml/ IV (Miscellaneous Supplies) 100 mls @ 25 mls/hr IV X1 ONE Stop: 09/06/24 07:50 Sodium Chloride 500 ml/ IV (Miscellaneous Supplies) 500 mls @ 25 mls/hr IV X1 ONE Stop: 09/07/24 00:11 Last Infusion: 09/06/24 07:55 Dose: 0 mls/hr Ceftriaxone Sodium/Dextrose (Rocephin/D5w 1gm Iv Premix) 1 gm in 50 mls @ 100 mls/hr IV [facility] Stop: 09/13/24 20:59 Assessment & Plan Plan Chidi Anderson is a 39-year-old male with a PMH of hepatic cirrhosis, ascites, and esophageal varices status post endoscopic band ligation who presents today with generalized weakness. Admission along with consult to nephrology for the work-up and management of symptomatic hyponatremia. #symptomatic hypochloremic hypo-osmolar Hyponatremia Suspecting due to combination of poor oral intake, diuretic use, decrease in effective circulating volume (3rd spacing) from splanchnic vasodilation due to cirrhosis. Patient stopped drinking alcohol in December 2023. Diagnosed with Cirrhosis in February 2024. Volume status: ascitic abdomen, extremities without edema. 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 Annia Biggs MD PGY-1 Attending Provider Attestation/Addendum patient seen and examined with resident physician Dr. Biggs. Note reviewed, agree with findings and recommendations. Plan of care discussed with at bedside Patient admitted with weakness and noted to have symptomatic hyponatremia. Was started on 3% hypertonic saline. History of end-stage liver disease with ascites needing paracentesis. Might need salt tablets due to need for diuretic usage. Patient on Lasix 40 mg p.o. daily at home with Aldactone 100 mg p.o. daily. Thank you Vicente for allowing me to participate in the care of Mr. Anderson.
--- NOTE | 2024-09-06 10:57 | ESPR_ITS ---
Documentation for date of: 09/06/24 Senior Resident Attestation: I have discussed the case with supervising physician and international specialist physician involved in the care of patient. I personally saw and examined patient and discussed the assessment and plan with the entire medical team, including attending. I agree with assessment and plan as documented above. Gudelia Medina MD PGY-2 Internal Medicine Subjective Subjective Interval history: No acute events overnight. Patient seen and examined at bedside this AM. Has no complaints besides dehydration. Denies chest pain, shortness of breath, abdominal pain. Patient reports alcohol history of at least 17 years, drank at least a pack of beer a day. Has not drank since December 2023. U tox was negative for alcohol and other illicit drug use. Patient and family is aware that he has liver cirrhosis, pending transplant. Symptomatic hyponatremia failure likely secondary to alcoholic history. In the ED, paracentesis was conducted, removed 2500 cc. Per fluid analysis, polynucleated WBC less than 250, not SBP. Will discontinue empiric ceftriaxone. No asterixis on exam. Labs and vitals were reviewed. Sodium is currently 120. Consulted nephrology Dr. Corona, started hypertonic saline at 50 cc/h, goal over 24 hours is 124. Scheduled sodium checks every 3 hours. Will discontinue Lasix as patient is hypotensive, started on midodrine. Will hold home Lasix and spironolactone. Restarted on folic acid and thiamine. If patient reaches goal of sodium 124 before 24 hours, hold hypertonic saline. If overshoot, consider giving desmopressin 2-4 mcg and starting on D5W at 3 cc/h, expect drop of sodium by 1mol/hour. Review of systems otherwise negative except what is mentioned above. Exam Vital Signs Temp Pulse Resp BP Pulse Ox O2 Del Method 97.6 F 73 12 104/58 L 96 Room Air 09/06/24 08:00 09/06/24 08:11 09/06/24 08:00 09/06/24 08:11 09/06/24 08:00 09/06/24 08:00 Narrative Exam Physical Exam General: Awake and in no acute distress. Conversational and non-toxic appearing. Cachetic male, sitting up in bed. HEENT: Normocephalic, atraumatic, mucous membranes moist. Heart: Tachycardic. Regular rate and rhythm, normal S1 and S2, no murmurs. Lungs: Clear to auscultation with no wheezing or crackles. Abdomen: Soft, distended, nontender, positive bowel sounds. No guarding or rebound tenderness. Neurologic: Alert and oriented x3, no gross neurological deficit, and patient able to move all 4 extremities. No asterixis observed. Extremities: No edema. Skin: No rash or ecchymoses. Objective Labs 09/07/24 12:05 09/07/24 17:57 Labs: Laboratory Results - last 24 hr 09/05/24 09/05/24 09/05/24 19:16 19:17 22:48 WBC 5.1 RBC 3.79 L Hgb 12.6 L Hct 33.8 L MCV 89 MCH 33.2 MCHC 37.3 H RDW Std Deviation 46.0 H Plt Count 99 L D Neut % (Auto) 71 Lymph % (Auto) 12 [facility] [facility] % (Auto) 13 H Eos % (Auto) 2 Baso % (Auto) 1 Neut # (Auto) 3.6 Lymph # (Auto) 0.[address] [facility] # (Auto) 0.7 Eos # (Auto) 0.1 Baso # (Auto) 0.1 Immature Gran # (Auto) 0.02 H Absolute Nucleated RBC 0.00 Immature Gran % 0 Nucleated RBC % 0 PT 16.9 H INR 1.6 H APTT 33.4 Sodium 121 L 119 L* Potassium 4.7 Chloride 87 L Carbon Dioxide 22.2 Anion Gap 12 BUN 7 L Creatinine 0.7 Estim Creat Clear Calc 139.0 eGFR > 60 BUN/Creatinine Ratio 10 L Glucose 113 H Calculated Osmolality 243 L Calcium 7.8 L Corrected Calcium 8.9 Phosphorus 3.8 Magnesium 1.4 L Total Bilirubin 3.8 H AST 84 H ALT 52 H Alkaline Phosphatase 133 H Ammonia 53 H Total Protein 6.2 Albumin 2.6 L Globulin 3.6 H Albumin/Globulin Ratio 0.7 L Amylase 136 H Lipase 101 H Ur Collection Type Clean Catch Urine Color Yellow Urine Clarity Clear Urine pH 6.0 Ur Specific [place] 1.023 Urine Protein Negative Urine Glucose (UA) Negative Urine Ketones Negative Urine Blood Negative Urine Nitrite Negative Urine Bilirubin Negative Urine Urobilinogen (Auto) Negative Ur Leukocyte Esterase Negative Urine RBC 2 Urine WBC 1 Ur Squamous Epith Cells 1 Urine Bacteria None Ur Culture Indicated? Not Indicated Peritoneal Color Peritoneal Appearance Peritoneal WBC Peritoneal RBC Periton Polynucl WBCs Periton Mononucl WBCs Peritoneal Tot Protein Peritoneal Albumin Peritoneal LDH Peritoneal Glucose Peritoneal Amylase Urine Opiates Screen Negative Urine Fentanyl Screen Negative Ur Barbiturates Screen Negative U Amphetamin/Meth Scrn Negative U Benzodiazepines Scrn Negative U Cocaine Metab Screen Negative U Marijuana (THC) Screen Negative Misc Test Result 09/06/24 09/06/24 09/06/24 02:12 02:53 02:53 WBC 4.3 RBC 3.57 L Hgb 11.8 L Hct 32.1 L MCV 90 MCH 33.1 MCHC 36.8 RDW Std Deviation 46.9 H Plt Count 71 L D Neut % (Auto) 71 Lymph % (Auto) 12 [facility] [facility] % (Auto) 13 H Eos % (Auto) 3 Baso % (Auto) 1 Neut # (Auto) 3.1 Lymph # (Auto) 0.[address] [place] # (Auto) 0.6 Eos # (Auto) 0.1 Baso # (Auto) 0.0 Immature Gran # (Auto) 0.01 H Absolute Nucleated RBC 0.00 Immature Gran % 0 Nucleated RBC % 0 PT INR APTT Sodium 119 L* Cancelled Potassium 4.6 Chloride Carbon Dioxide Anion Gap BUN Creatinine Estim Creat Clear Calc eGFR BUN/Creatinine Ratio Glucose Calculated Osmolality Calcium Corrected Calcium Phosphorus Magnesium Total Bilirubin AST ALT Alkaline Phosphatase Ammonia Total Protein Albumin Globulin Albumin/Globulin Ratio Amylase Lipase Ur Collection Type Urine Color Urine Clarity Urine pH Ur Specific [place] Urine Protein Urine Glucose (UA) Urine Ketones Urine Blood Urine Nitrite Urine Bilirubin Urine Urobilinogen (Auto) Ur Leukocyte Esterase Urine RBC Urine WBC Ur Squamous Epith Cells Urine Bacteria Ur Culture Indicated? Peritoneal Color Straw Peritoneal Appearance Cloudy Peritoneal WBC 287 Peritoneal RBC 900 Periton Polynucl WBCs 9.4 Periton Mononucl WBCs 90.6 Peritoneal Tot Protein < 2 Peritoneal Albumin < 1.0 Peritoneal LDH 41 Peritoneal Glucose 115 Peritoneal Amylase 63 Urine Opiates Screen Urine Fentanyl Screen Ur Barbiturates Screen U Amphetamin/Meth Scrn U Benzodiazepines Scrn U Cocaine Metab Screen U Marijuana (THC) Screen Misc Test Result 09/06/24 09/06/24 09/06/24 02:53 02:53 02:53 WBC RBC Hgb Hct MCV MCH MCHC RDW Std Deviation Plt Count Neut % (Auto) Lymph % (Auto) [facility] % (Auto) Eos % (Auto) Baso % (Auto) Neut # (Auto) Lymph # (Auto) [facility] # (Auto) Eos # (Auto) Baso # (Auto) Immature Gran # (Auto) Absolute Nucleated RBC Immature Gran % Nucleated RBC % PT INR APTT Sodium Potassium Cancelled Chloride 91 L Cancelled Carbon Dioxide 22.0 Cancelled Anion Gap 6 L BUN Creatinine Estim Creat Clear Calc eGFR BUN/Creatinine Ratio Glucose Calculated Osmolality Calcium Corrected Calcium Phosphorus Magnesium Total Bilirubin AST ALT Alkaline Phosphatase Ammonia Total Protein Albumin Globulin Albumin/Globulin Ratio Amylase Lipase Ur Collection Type Urine Color Urine Clarity Urine pH Ur Specific [place] Urine Protein Urine Glucose (UA) Urine Ketones Urine Blood Urine Nitrite Urine Bilirubin Urine Urobilinogen (Auto) Ur Leukocyte Esterase Urine RBC Urine WBC Ur Squamous Epith Cells Urine Bacteria Ur Culture Indicated? Peritoneal Color Peritoneal Appearance Peritoneal WBC Peritoneal RBC Periton Polynucl WBCs Periton Mononucl WBCs Peritoneal Tot Protein Peritoneal Albumin Peritoneal LDH Peritoneal Glucose Peritoneal Amylase Urine Opiates Screen Urine Fentanyl Screen Ur Barbiturates Screen U Amphetamin/Meth Scrn U Benzodiazepines Scrn U Cocaine Metab Screen U Marijuana (THC) Screen [facility] [place] Test Result 09/06/24 09/06/24 09/06/24 02:53 02:53 02:53 WBC RBC Hgb Hct MCV MCH MCHC RDW Std Deviation Plt Count Neut % (Auto) Lymph % (Auto) [facility] % (Auto) Eos % (Auto) Baso % (Auto) Neut # (Auto) Lymph # (Auto) [facility] # (Auto) Eos # (Auto) Baso # (Auto) Immature Gran # (Auto) Absolute Nucleated RBC Immature Gran % Nucleated RBC % PT INR APTT Sodium Potassium Chloride Carbon Dioxide Anion Gap Cancelled BUN 6 L Cancelled Creatinine 0.5 L Cancelled Estim Creat Clear Calc 194.7 eGFR BUN/Creatinine Ratio Glucose Calculated Osmolality Calcium Corrected Calcium Phosphorus Magnesium Total Bilirubin AST ALT Alkaline Phosphatase Ammonia Total Protein Albumin Globulin Albumin/Globulin Ratio Amylase Lipase Ur Collection Type Urine Color Urine Clarity Urine pH Ur Specific [place] Urine Protein Urine Glucose (UA) Urine Ketones Urine Blood Urine Nitrite Urine Bilirubin Urine Urobilinogen (Auto) Ur Leukocyte Esterase Urine RBC Urine WBC Ur Squamous Epith Cells Urine Bacteria Ur Culture Indicated? Peritoneal Color Peritoneal Appearance Peritoneal WBC Peritoneal RBC Periton Polynucl WBCs Periton Mononucl WBCs Peritoneal Tot Protein Peritoneal Albumin Peritoneal LDH Peritoneal Glucose Peritoneal Amylase Urine Opiates Screen Urine Fentanyl Screen Ur Barbiturates Screen U Amphetamin/Meth Scrn U Benzodiazepines Scrn U Cocaine Metab Screen [facility] Result 09/06/24 09/06/24 09/06/24 02:53 02:53 02:53 WBC RBC Hgb Hct MCV MCH MCHC RDW Std Deviation Plt Count Neut % (Auto) Lymph % (Auto) [facility] % (Auto) Eos % (Auto) Baso % (Auto) Neut # (Auto) Lymph # (Auto) [facility] # (Auto) Eos # (Auto) Baso # (Auto) Immature Gran # (Auto) Absolute Nucleated RBC Immature Gran % Nucleated RBC % PT INR APTT Sodium Potassium Chloride Carbon Dioxide Anion Gap BUN Creatinine Estim Creat Clear Calc Cancelled eGFR > 60 Cancelled BUN/Creatinine Ratio 12 Cancelled Glucose 109 H Calculated Osmolality Calcium Corrected Calcium Phosphorus Magnesium Total Bilirubin AST ALT Alkaline Phosphatase Ammonia Total Protein Albumin Globulin Albumin/Globulin Ratio Amylase Lipase Ur Collection Type Urine Color Urine Clarity Urine pH Ur Specific [place] Urine Protein Urine Glucose (UA) Urine Ketones Urine Blood Urine Nitrite Urine Bilirubin Urine Urobilinogen (Auto) Ur Leukocyte Esterase Urine RBC Urine WBC Ur Squamous Epith Cells Urine Bacteria Ur Culture Indicated? Peritoneal Color Peritoneal Appearance Peritoneal WBC Peritoneal RBC Periton Polynucl WBCs Periton Mononucl WBCs Peritoneal Tot Protein Peritoneal Albumin Peritoneal LDH Peritoneal Glucose Peritoneal Amylase Urine Opiates Screen Urine Fentanyl Screen Ur Barbiturates Screen U Amphetamin/Meth Scrn U Benzodiazepines Scrn U Cocaine Metab Screen U Marijuana (THC) Screen [facility] [place] Test Result 09/06/24 09/06/24 09/06/24 02:53 02:53 02:53 WBC RBC Hgb Hct MCV MCH MCHC RDW Std Deviation Plt Count Neut % (Auto) Lymph % (Auto) [facility] % (Auto) Eos % (Auto) Baso % (Auto) Neut # (Auto) Lymph # (Auto) [facility] # (Auto) Eos # (Auto) Baso # (Auto) Immature Gran # (Auto) Absolute Nucleated RBC Immature Gran % Nucleated RBC % PT INR APTT Sodium Potassium Chloride Carbon Dioxide Anion Gap BUN Creatinine Estim Creat Clear Calc eGFR BUN/Creatinine Ratio Glucose Cancelled Calculated Osmolality 238 L Cancelled Calcium 7.3 L Cancelled Corrected Calcium 8.6 Phosphorus Magnesium Total Bilirubin AST ALT Alkaline Phosphatase Ammonia Total Protein Albumin Globulin Albumin/Globulin Ratio Amylase Lipase Ur Collection Type Urine Color Urine Clarity Urine pH Ur Specific [place] Urine Protein Urine Glucose (UA) Urine Ketones Urine Blood Urine Nitrite Urine Bilirubin Urine Urobilinogen (Auto) Ur Leukocyte Esterase Urine RBC Urine WBC Ur Squamous Epith Cells Urine Bacteria Ur Culture Indicated? Peritoneal Color Peritoneal Appearance Peritoneal WBC Peritoneal RBC Periton Polynucl WBCs Periton Mononucl WBCs Peritoneal Tot Protein Peritoneal Albumin Peritoneal LDH Peritoneal Glucose Peritoneal Amylase Urine Opiates Screen Urine Fentanyl Screen Ur Barbiturates Screen U Amphetamin/Meth Scrn U Benzodiazepines Scrn U Cocaine Metab Screen U Marijuana (THC) Screen Misc Test Result 09/06/24 09/06/24 09/06/24 02:53 02:53 02:53 WBC RBC Hgb Hct MCV MCH MCHC RDW Std Deviation Plt Count Neut % (Auto) Lymph % (Auto) [facility] % (Auto) Eos % (Auto) Baso % (Auto) Neut # (Auto) Lymph # (Auto) [facility] # (Auto) Eos # (Auto) Baso # (Auto) Immature Gran # (Auto) Absolute Nucleated RBC Immature Gran % Nucleated RBC % PT INR APTT Sodium Potassium Chloride Carbon Dioxide Anion Gap BUN Creatinine Estim Creat Clear Calc eGFR BUN/Creatinine Ratio Glucose Calculated Osmolality Calcium Corrected Calcium Cancelled Phosphorus Magnesium Total Bilirubin 2.8 H D Cancelled AST 79 H Cancelled ALT 48 Alkaline Phosphatase Ammonia Total Protein Albumin Globulin Albumin/Globulin Ratio Amylase Lipase Ur Collection Type Urine Color Urine Clarity Urine pH Ur Specific [place] Urine Protein Urine Glucose (UA) Urine Ketones Urine Blood Urine Nitrite Urine Bilirubin Urine Urobilinogen (Auto) Ur Leukocyte Esterase Urine RBC Urine WBC Ur Squamous Epith Cells Urine Bacteria Ur Culture Indicated? Peritoneal Color Peritoneal Appearance Peritoneal WBC Peritoneal RBC Periton Polynucl WBCs Periton Mononucl WBCs Peritoneal Tot Protein Peritoneal Albumin Peritoneal LDH Peritoneal Glucose Peritoneal Amylase Urine Opiates Screen Urine Fentanyl Screen Ur Barbiturates Screen U Amphetamin/Meth Scrn U Benzodiazepines Scrn U Cocaine Metab Screen U Marijuana (THC) Screen Misc Test Result 09/06/24 09/06/24 09/06/24 02:53 02:53 02:53 WBC RBC Hgb Hct MCV MCH MCHC RDW Std Deviation Plt Count Neut % (Auto) Lymph % (Auto) [facility] % (Auto) Eos % (Auto) Baso % (Auto) Neut # (Auto) Lymph # (Auto) [facility] # (Auto) Eos # (Auto) Baso # (Auto) Immature Gran # (Auto) Absolute Nucleated RBC Immature Gran % Nucleated RBC % PT INR APTT Sodium Potassium Chloride Carbon Dioxide Anion Gap BUN Creatinine Estim Creat Clear Calc eGFR BUN/Creatinine Ratio Glucose Calculated Osmolality Calcium Corrected Calcium Phosphorus Magnesium Total Bilirubin AST ALT Cancelled Alkaline Phosphatase 117 H Cancelled Ammonia Total Protein 5.7 Cancelled Albumin 2.4 L Globulin Albumin/Globulin Ratio Amylase Lipase Ur Collection Type Urine Color Urine Clarity Urine pH Ur Specific [place] Urine Protein Urine Glucose (UA) Urine Ketones Urine Blood Urine Nitrite Urine Bilirubin Urine Urobilinogen (Auto) Ur Leukocyte Esterase Urine RBC Urine WBC Ur Squamous Epith Cells Urine Bacteria Ur Culture Indicated? Peritoneal Color Peritoneal Appearance Peritoneal WBC Peritoneal RBC Periton Polynucl WBCs Periton Mononucl WBCs Peritoneal Tot Protein Peritoneal Albumin Peritoneal LDH Peritoneal Glucose Peritoneal Amylase Urine Opiates Screen Urine Fentanyl Screen Ur Barbiturates Screen U Amphetamin/Meth Scrn U Benzodiazepines Scrn U Cocaine Metab Screen U Marijuana (THC) Screen Misc Test Result 09/06/24 09/06/24 09/06/24 02:53 02:53 02:53 WBC RBC Hgb Hct MCV MCH MCHC RDW Std Deviation Plt Count Neut % (Auto) Lymph % (Auto) [facility] % (Auto) Eos % (Auto) Baso % (Auto) Neut # (Auto) Lymph # (Auto) [facility] # (Auto) Eos # (Auto) Baso # (Auto) Immature Gran # (Auto) Absolute Nucleated RBC Immature Gran % Nucleated RBC % PT INR APTT Sodium Potassium Chloride Carbon Dioxide Anion Gap BUN Creatinine Estim Creat Clear Calc eGFR BUN/Creatinine Ratio Glucose Calculated Osmolality Calcium Corrected Calcium Phosphorus Magnesium Total Bilirubin AST ALT Alkaline Phosphatase Ammonia Total Protein Albumin Cancelled Globulin 3.3 Cancelled Albumin/Globulin Ratio 0.7 L Cancelled Amylase Lipase Ur Collection Type Urine Color Urine Clarity Urine pH Ur Specific [place] Urine Protein Urine Glucose (UA) Urine Ketones Urine Blood Urine Nitrite Urine Bilirubin Urine Urobilinogen (Auto) Ur Leukocyte Esterase Urine RBC Urine WBC Ur Squamous Epith Cells Urine Bacteria Ur Culture Indicated? Peritoneal Color Peritoneal Appearance Peritoneal WBC Peritoneal RBC Periton Polynucl WBCs Periton Mononucl WBCs Peritoneal Tot Protein Peritoneal Albumin Peritoneal LDH Peritoneal Glucose Peritoneal Amylase Urine Opiates Screen Urine Fentanyl Screen Ur Barbiturates Screen U Amphetamin/Meth Scrn U Benzodiazepines Scrn U Cocaine Metab Screen U Marijuana (THC) Screen Misc Test Result Platelets confirmed 09/06/24 06:31 WBC RBC Hgb Hct MCV MCH MCHC RDW Std Deviation Plt Count Neut % (Auto) Lymph % (Auto) [facility] % (Auto) Eos % (Auto) Baso % (Auto) Neut # (Auto) Lymph # (Auto) [facility] # (Auto) Eos # (Auto) Baso # (Auto) Immature Gran # (Auto) Absolute Nucleated RBC Immature Gran % Nucleated RBC % PT INR APTT Sodium 120 L Potassium Chloride Carbon Dioxide Anion Gap BUN Creatinine Estim Creat Clear Calc eGFR BUN/Creatinine Ratio Glucose Calculated Osmolality Calcium Corrected Calcium Phosphorus Magnesium Total Bilirubin AST ALT Alkaline Phosphatase Ammonia Total Protein Albumin Globulin Albumin/Globulin Ratio Amylase Lipase Ur Collection Type Urine Color Urine Clarity Urine pH Ur Specific [place] Urine Protein Urine Glucose (UA) Urine Ketones Urine Blood Urine Nitrite Urine Bilirubin Urine Urobilinogen (Auto) Ur Leukocyte Esterase Urine RBC Urine WBC Ur Squamous Epith Cells Urine Bacteria Ur Culture Indicated? Peritoneal Color Peritoneal Appearance Peritoneal WBC Peritoneal RBC Periton Polynucl WBCs Periton Mononucl WBCs Peritoneal Tot Protein Peritoneal Albumin Peritoneal LDH Peritoneal Glucose Peritoneal Amylase Urine Opiates Screen Urine Fentanyl Screen Ur Barbiturates Screen U Amphetamin/Meth Scrn U Benzodiazepines Scrn U Cocaine Metab Screen U Marijuana (THC) Screen Misc Test Result Quality Measures Quality Measures none Assessment & Plan Assessment Current Active Medications: Generic Name Dose Route Start Last Admin Trade Name Freq PRN Reason Stop Dose Admin Acetaminophen 650 mg 09/05/24 22:36 Acetaminophen 325 Mg Tablet PO 10/05/24 22:35 Q6H PRN PAIN SCALE 1-3 (mild Carvedilol 3.125 mg 09/05/24 23:00 09/06/24 08:11 Carvedilol 3.125 Mg Tablet PO 10/05/24 22:59 3.125 mg BID LEBRON Administration Sodium Chloride 1,000 mls @ 150 mls/hr 09/05/24 23:57 09/06/24 04:21 Ns IV 10/05/24 23:56 0 mls/hr .[id number] LEBRON Infusion Sodium Chloride 500 ml/ IV 500 mls @ 35 mls/hr 09/06/24 08:30 09/06/24 09:45 Miscellaneous Supplies IV 09/06/24 22:47 35 mls/hr X1 ONE Administration Lactulose 30 gm 09/05/24 23:00 09/06/24 08:09 Lactulose Syrup 20 Gm/30 Ml Udc PO 10/05/24 22:59 30 gm BID LEBRON Administration Protocol Midodrine 2.5 mg 09/06/24 07:51 Midodrine 2.5 Mg Tablet PO 10/06/24 13:59 TID PRN Hypotension Ondansetron HCl 4 mg 09/05/24 22:36 Ondansetron Inj 2 Mg/Ml Inj 2 Ml IVP 10/05/24 22:35 Q6H PRN NAUSEA OR VOMITING Protocol Pantoprazole Sodium 40 mg 09/05/24 23:00 09/06/24 08:09 Pantoprazole Inj 40 Mg Vial IVP 10/05/24 22:59 40 mg BID LEBRON Administration Rifaximin 550 mg 09/06/24 21:00 Rifaximin 550 Mg Tablet PO 09/13/24 20:59 BID LEBRON Sennosides 1 tab 09/05/24 22:36 Senna Tablet PO 10/05/24 22:35 QDAY PRN constipation Protocol Tramadol HCl 50 mg 09/05/24 22:36 Tramadol Hcl 50 Mg Tablet PO 09/10/24 22:35 Q6HR PRN Pain Scale 7-10 (Moderate Plan Patient is a 39-year-old male with past medical history of hepatic cirrhosis with ascites and esophageal varices status post banding, all secondary to alcohol abuse who presented on 09/06 for generalized weakness, admitted for symptomatic hyponatremia. #Symptomatic hyponatremia, hypervolemia, hypoosmotic #Secondary to cirrhosis #General Weakness PCP office, sodium was 119. Improved to 121 but dropped again to 119 due to LR given in ED. Slowly uptrending. Likely secondary to decreased circulatory effect from cirrhosis, causing kidneys to retain water and increased ADH secretion. Plan: - Continue hypertonic saline 500 mL IV at 35 cc/h - Discontinue IV ceftriaxone as patient does not have SBO - Goal 4-6mEq sodium per 24 hours (goal 124) - Pending urine electrolytes - Check sodium every 3 hours - Fluid restriction 1800 mL/day - Strict I's and O's - Consulted nephrology Dr. Milner, appreciate recommendations #Acute on chronic decompensated alcohol cirrhosis with ascites #History of alcohol abuse #History of esophageal varices status post banding (03/11/2024) Status post paracentesis 09/05 in ED, removed 2.5 L. Per chart review patient has had multiple paracentesis over the past year. Abdomen continues to have a soft but distended. U-Tox negative for alcohol and other other illicit substances. Patient used to drink a pack of beer every day for 17 years, sober since December 2023. Per family, patient is on transplant list. Due to decompensated cirrhosis, patient developed esophageal varices, banded on 03/11/2024. Child-Moore score: 10; Class C (life expectancy 1-3 years, abdominal surgery rosmery-operative mortality 82%) MELD-Na score: 25 points, estimated 90 day mortality 14-15% Plan: - Continue home dose rifaximin - Continue home dose Protonix #Normocytic anemia #Thrombocytopenia Secondary to chronic decompensated alcohol cirrhosis. - Monitor H&H and platelet count - Continue home dose thiamine and folate - Transfuse if hemoglobin less than 7 - Transfuse platelets if less than 10,000 #Hypotension #History of hypertension Secondary to chronic decompensated alcoholic cirrhosis. Blood pressures are soft on admission. - Started on midodrine 2.5 mg 3 times daily - Hold home dose Lasix - Consider restarting spironolactone if blood pressure improves - Continue to monitor BP Health Maintenance Disposition: Further management of symptomatic hyponatremia DVT prophylaxis: Not needed as patient is ambulatory GI prophylaxis: Senna Diet: Cardiac CODE STATUS: Full Patient plan of care was discussed with the resident, Dr. Medina, and attending physician, Dr. Lima. Malena Mendes, PGY-1 Attending Provider Attestation/Addendum I attest that I was physically present for the evaluation, physical examination, lab and imaging review of the patient with the residents. I discussed the case with the residents and agree with the findings and plans of care as documented above. Vicente Lima MD
--- NOTE | 2024-09-06 11:00 | PC.SS ---
Chidi Anderson is a 39-year-old male admitted to [facility] for Symptomatic Hyponatremia. SS conducted bedside contact with the patient to complete initial assessment and to discuss discharge planning. Role and reason explained. Patient confirmed demographic information. Patient identifies his life partner Melody Tolbert [phone]. Pt reports increased weakness over a few weeks, which has caused him to require assistance at home in which his family has helped. Pt reports not having any medical equipment at home. Pt PCP is Dr. Gage Marc. DC options discussed pt wishes to return home with family providing transportation. No further needs identified. SS will remain available for any additional needs or concerns.
[2024-09-06 11:03] LABS: Sodium 121 mMol/L (136-145)
[2024-09-06] MEDS: MIDODRINE 2.5 MG TABLET PO (11:22)
[2024-09-06 14:37] LABS: Sodium 122 mMol/L (136-145)
[2024-09-06] MEDS: FOLIC ACID 1 MG TABLET PO (16:34)
[2024-09-06] MEDS: THIAMINE 100 MG TABLET PO (16:34)
[2024-09-06 16:44] LABS: Sodium 122 mMol/L (136-145)
[2024-09-06] MEDS: ONDANSETRON INJ 2 MG/ML INJ 2 ML 4 MG IVP (17:33)
--- NOTE | 2024-09-06 18:45 | XR_ITS ---
Examination: CT abdomen with intravenous contrast CT pelvis with intravenous contrast 2-D coronal reconstructions 2-D sagittal reconstructions Date and time of exam:September 06, 2024, 1929 hours Comparison March 10, 2024 INDICATIONS: Worsening abdominal pain today. CTDI: vol (mGy) 07/10/2000 DLP: (mGycm) 394 Technique: Multiple axial sections of the abdomen and pelvis have been obtained. 64 slice high-resolution scanner used. 3 mm axial sections have been obtained, post intravenous injection 60 cc Isovue 370 2-D sagittal, coronal reconstructions obtained. Low dose protocols were performed. One or more of the following dose reduction techniques were used; automated exposure control, adjustment of the mA and/or KV according to patient size, use of iterative reconstruction technique. Findings: Bibasilar pneumonia with moderate left pleural effusion Cirrhosis, liver markedly lobular in contour with prominent ascites Splenomegaly No definite gallstones Esophageal and perigastric varices No pancreatic mass No hydronephrosis Aorta normal size No bowel obstruction Colonic diverticulosis No bladder mass Moderate disc narrowing L5-S1 IMPRESSION: Bibasilar pneumonia Moderate left pleural effusion Cirrhosis with splenomegaly Esophageal and perigastric varices Prominent ascites No bowel obstruction
[2024-09-06 19:10] LABS: Lactate (Lactic Acid) 1.9 mMol/L (0.4-2.0)
[2024-09-06 19:13] LABS: Basophils # (Auto) 0.1 Thou/mm3 (0.0-0.2); Basophils % (Auto) 1 % (0-2.5); Eosinophils # (Auto) 0.1 Thou/mm3 (0.0-0.5); Eosinophils % (Auto) 2 % (0-10); Hematocrit 34.3 % (41.0-53.0); Hemoglobin 12.6 g/dL (13.5-16.0); Immature Granulocytes Auto 0.01 Thou/mm3 (0.00-0.00); Lymphocytes # (Auto) 0.6 Thou/mm3 (1.0-4.8); Lymphocytes % (Auto) 9 % (10-50); Mean Corpuscular HGB Conc 36.7 g/dl (31.0-37.0); Mean Corpuscular Hemoglobin 33.2 pg (25.0-35.0); Mean Corpuscular Volume 91 fL (80-100); Monocytes # (Auto) 0.6 Thou/mm3 (0.0-0.8); Monocytes % (Auto) 10 % (0-12); Neutrophils # (Auto) 4.7 Thou/mm3 (1.8-7.7); Neutrophils % (Auto) 77 % (37-80); Nucleated Red Blood Cell # 0.00 Thou/mm3 (0.00-0.00); Nucleated Red Blood Cell % 0 /100 WBC (0); Platelet Count 110 Thou/mm3 (140-440); RDW Standard Deviation 47.9 fL (35.1-43.9); Red Blood Count 3.79 Miln/mm3 (4.50-5.90); White Blood Count 6.1 Thou/mm3 (3.8-10.6)
[2024-09-06 19:31] LABS: Alanine Aminotransferase 54 U/L (10-49); Albumin, Serum 2.7 gm/dL (3.5-5.0); Albumin/Globulin Ratio 0.8 (1.2-2.2); Alkaline Phosphatase 133 U/L (46-116); Anion Gap 5 (7-16); Aspartate Amino Transferase 72 U/L (0-34); BUN/Creatinine Ratio 13 Ratio (12-20); Bilirubin,Total 2.9 mg/dL (0.3-1.2); Blood Urea Nitrogen 8 mg/dL (9-23); Calcium 8.2 mg/dL (8.3-10.6); Calcium (Corrected) 9.2 mg/dL (8.5-10.1); Carbon Dioxide 23.8 mMol/L (20.0-31.0); Chloride 94 mMol/L (98-107); Creatinine (Component) 0.6 mg/dL (0.6-1.3); Estimated Creatinine Clearance 152.0 mL/min (>60); Globulin 3.4 gm/dL (2.3-3.5); Glucose 120 mg/dL (74-106); Osmolality,Calculated 247 (275-295); Potassium 4.7 mMol/L (3.4-5.1); Sodium 123 mMol/L (136-145); Total Protein 6.1 gm/dL (5.7-8.2); eGFR > 60 See Note
[2024-09-06] MEDS: LIDOCAINE 5% 1 PATCH TOP (20:26)
[2024-09-06] MEDS: MORPHINE SULF INJ 10 MG/ML VIAL IVP (20:28)
[2024-09-06 22:18] LABS: Sodium 123 mMol/L (136-145)
[2024-09-07] VITALS: BP 91/61; PULSE 66; PULSE 70; RESP 16; TEMP 36.2; O2SAT 92
[2024-09-07 03:08] LABS: Sodium 125 mMol/L (136-145)
[2024-09-07 04:00] VITALS: BP 99/51; PULSE 68; PULSE 75; RESP 13; TEMP 36.1; O2SAT 92
[2024-09-07 05:31] VITALS: BMI 23.6
[2024-09-07 08:00] VITALS: BP 90/58; PULSE 71; PULSE 76; RESP 15; TEMP 36.2; O2SAT 96
[2024-09-07] MEDS: LACTULOSE SYRUP 20 GM/30 ML UDC 30 GM PO ×2 (08:06→21:29)
[2024-09-07] MEDS: SODIUM CHLORIDE 1 GM TABLET PO ×2 (08:06→21:29)
[2024-09-07] MEDS: FOLIC ACID 1 MG TABLET PO (08:06)
[2024-09-07] MEDS: THIAMINE 100 MG TABLET PO (08:06)
--- NOTE | 2024-09-07 08:43 | PD.RESPRO ---
Documentation for date of: 09/07/24 Subjective Subjective Interval history: Chidi Anderson is a 39-year-old male with a PMH of hepatic cirrhosis, ascites, and esophageal varices status post endoscopic band ligation who presents today with generalized weakness. Of note, patient was recently seen in the ED on 08/10/24 for ascites for which he received paracentesis. On admission, patient's stated, who was present at the time of interview, patient started feeling weak, tired, and sleepy starting 15 days ago. She says that he has recently been so fatigued that he cannot get out of bed. 2 days ago, the patient was seen by his PCP where it was found that his sodium level was 113 and patient was urged to seek treatment at the hospital. Besides generalized weakness, patient also endorses longstanding right upper quadrant abdominal pain and generalized body ache. He denies any recent travel history, sick contacts, or current pain outside of the abdominal pain. This morning patient was seen and examined on the floors with at the bedside. Patient states he came to the hospital after his PCP saw his sodium levels were low. In addition to previously report history above, patient states he stopped drinking alcohol in December 2023. States he was diagnosed with Cirrhosis in February 2024. Patient states he is feeling okay, endorses some weakness still along with some RUQ pain. Patient denies personal/family of kidney disease. Patient denies any new complaints/concerns. Patient denies fever, chest pain, shortness of breath. ED Course: Vitals showed: BP 104/66 HR 76 RR 18 Temp 97.9 SpO2 95% on room air CBC showed low Hgb 12.6 (MCV 89, RDW 46.0), and low platelet count 99. Coagulation panel showed prolonged PTT 16.9, and high INR 1.6. CMP showed marked hyponatremia 121, marked hypochloremia 87, low calculated osmolality 243, normal corrected calcium 8.9, hypomagnesemia 1.4, elevated total bilirubin 3.8, elevated AST 84 and ALT 52, elevated alkaline phosphatase 133, high ammonia 53, and elevated amylase 136 and lipase 101. UA, UDS, and ascitic fluid analysis were negative. Imaging: EKG showed sinus rhythm with borderline left axis deviation. In the ED, patient was given 1 L normal saline bolus, IV ceftriaxone, and magnesium. Patient was admitted along with consult to nephrology for the work-up and management of symptomatic hyponatremia. 09/07/2024: No acute events overnight. Patient seen and examined at bedside with present. Vitals and labs reviewed. Patient states abdominal pain is feeling better this morning. Patient denies any complaints/concerns. Patient denies fever, chest pain, shortness of breath. Na 125 this morning. Exam Vital Signs Temp Pulse Resp BP Pulse Ox O2 Del Method 97.2 F 71 15 90/58 L 96 Room Air 09/07/24 08:00 09/07/24 08:00 09/07/24 08:00 09/07/24 08:00 09/07/24 08:00 09/07/24 08:00 Narrative Exam General: Awake and in no acute distress. Conversational and non-toxic appearing. HEENT: Normocephalic, atraumatic, mucous membranes moist. Heart: Regular rate and rhythm, normal S1 and S2, no murmurs. Lungs: Clear to auscultation with no wheezing or crackles. Abdomen: Soft, non-tender. Distended, shifting fluid wave, positive bowel sounds. ?No guarding or rebound tenderness. Neurologic: Alert and oriented x3, no gross neurological deficit, and patient able to move all 4 extremities. Extremities: Mild LE edema. Skin: No rash or ecchymoses. Objective Labs 09/08/24 03:57 09/08/24 03:57 Labs: Laboratory Results - last 24 hr 09/06/24 09/06/24 09/06/24 10:30 13:39 16:25 WBC RBC Hgb Hct MCV MCH MCHC RDW Std Deviation Plt Count Neut % (Auto) Lymph % (Auto) [place] % (Auto) Eos % (Auto) Baso % (Auto) Neut # (Auto) Lymph # (Auto) [place] # (Auto) Eos # (Auto) Baso # (Auto) Immature Gran # (Auto) Absolute Nucleated RBC Immature Gran % Nucleated RBC % Sodium 121 L 122 L 122 L Potassium Chloride Carbon Dioxide Anion Gap BUN Creatinine Estim Creat Clear Calc eGFR BUN/Creatinine Ratio Glucose Calculated Osmolality Lactic Acid Calcium Corrected Calcium Total Bilirubin AST ALT Alkaline Phosphatase Total Protein Albumin Globulin Albumin/Globulin Ratio 09/06/24 09/06/24 09/07/24 19:03 22:05 02:50 WBC 6.1 D RBC 3.79 L Hgb 12.6 L Hct 34.3 L MCV 91 MCH 33.2 MCHC 36.7 RDW Std Deviation 47.9 H Plt Count 110 L D Neut % (Auto) 77 Lymph % (Auto) 9 L [place] % (Auto) 10 Eos % (Auto) 2 Baso % (Auto) 1 Neut # (Auto) 4.7 Lymph # (Auto) 0.6 L [place] # (Auto) 0.6 Eos # (Auto) 0.1 Baso # (Auto) 0.1 Immature Gran # (Auto) 0.01 H Absolute Nucleated RBC 0.00 Immature Gran % 0 Nucleated RBC % 0 Sodium 123 L 123 L 125 L Potassium 4.7 Chloride 94 L Carbon Dioxide 23.8 Anion Gap 5 L BUN 8 L Creatinine 0.6 Estim Creat Clear Calc 152.0 eGFR > 60 BUN/Creatinine Ratio 13 Glucose 120 H Calculated Osmolality 247 L Lactic Acid 1.9 Calcium 8.2 L Corrected Calcium 9.2 Total Bilirubin 2.9 H AST 72 H ALT 54 H Alkaline Phosphatase 133 H Total Protein 6.1 Albumin 2.7 L Globulin 3.4 Albumin/Globulin Ratio 0.8 L Quality Measures Quality Measures VTE prophylaxis Assessment & Plan Assessment Current Active Medications: Generic Name Dose Route Start Last Admin Trade Name Freq PRN Reason Stop Dose Admin Acetaminophen 650 mg 09/05/24 22:36 Acetaminophen 325 Mg Tablet PO 10/05/24 22:35 Q6H PRN PAIN SCALE 1-3 (mild Carvedilol 3.125 mg 09/05/24 23:00 09/06/24 20:27 Carvedilol 3.125 Mg Tablet PO 10/05/24 22:59 3.125 mg BID LEBRON Administration Folic Acid 1 mg 09/06/24 14:30 09/07/24 08:06 Folic Acid 1 Mg Tablet PO 10/06/24 14:29 1 mg QDAY LEBRON Administration Lactulose 30 gm 09/05/24 23:00 09/07/24 08:06 Lactulose Syrup 20 Gm/30 Ml Udc PO 10/05/24 22:59 30 gm BID LEBRON Administration Protocol Midodrine 5 mg 09/07/24 07:32 Midodrine 5 Mg Tablet PO 10/06/24 13:59 TID PRN Hypotension Morphine Sulfate 1 mg 09/06/24 18:48 09/06/24 20:28 Morphine Sulf Inj 10 Mg/Ml Vial IVP 08/03/25 18:47 1 mg Q6HR PRN Administration PAIN SCALE 4-10(Mod-Sev Ondansetron HCl 4 mg 09/05/24 22:36 09/06/24 17:33 Ondansetron Inj 2 Mg/Ml Inj 2 Ml IVP 10/05/24 22:35 4 mg Q6H PRN Administration NAUSEA OR VOMITING Protocol Pantoprazole Sodium 40 mg 09/05/24 23:00 09/07/24 08:06 Pantoprazole Inj 40 Mg Vial IVP 10/05/24 22:59 40 mg BID LEBRON Administration Rifaximin 550 mg 09/06/24 21:00 09/07/24 08:06 Rifaximin 550 Mg Tablet PO 09/13/24 20:59 550 mg BID LEBRON Administration Sennosides 1 tab 09/05/24 22:36 Senna Tablet PO 10/05/24 22:35 QDAY PRN constipation Protocol Sodium Chloride 1 gm 09/07/24 09:00 09/07/24 08:06 Sodium Chloride 1 Gm Tablet PO 10/07/24 08:59 1 gm BID LEBRON Administration Thiamine HCl 100 mg 09/06/24 14:30 09/07/24 08:06 Thiamine 100 Mg Tablet PO 10/06/24 14:29 100 mg QDAY LEBRON Administration Plan Chidi Anderson is a 39-year-old male with a PMH of hepatic cirrhosis, ascites, and esophageal varices status post endoscopic band ligation who presents today with generalized weakness. Admission along with consult to nephrology for the work-up and management of symptomatic hyponatremia. #symptomatic hypochloremic hypo-osmolar Hyponatremia Suspecting due to combination of poor oral intake, diuretic use, decrease in effective circulating volume (3rd spacing) from splanchnic vasodilation due to cirrhosis. Patient stopped drinking alcohol in December 2023. Diagnosed with Cirrhosis in February 2024. Volume status: ascitic abdomen, extremities without edema. Admission labs: Na 121, Chloride 87, Osmolality 243 Plan: -Will give 1 gm Salt tablet BID, may stop when sodium level reaches 126. -Follow up with Dr. Milner outpatient in 1-2 weeks. -Gave 500 cc of 3% hypertonic saline at 35 ml/hr (09/06). Stop for now. 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 Annia Biggs MD PGY-1 Attending Provider Attestation/Addendum patient seen and examined with resident physician Dr. Biggs. Note reviewed, agree with findings and recommendations. Plan of care discussed with at bedside Patient admitted with weakness and noted to have symptomatic hyponatremia. Was started on 3% hypertonic saline. History of end-stage liver disease with ascites needing paracentesis. Sodium much better. Added 1 salt tablet per day. Patient noted to have ascites. Going for a large-volume paracentesis today. Will add salt tablet. Discontinue 3% hypertonic saline. Patient completely back to normal. Patient on Lasix 40 mg p.o. daily at home with Aldactone 100 mg p.o. daily. Thank you Vicente for allowing me to participate in the care of Mr. Anderson.
[2024-09-07 09:18] LABS: Chloride,Urine Random < 20.0 mMol/L (55.0-125.0); Creatinine,Random Urine 228 mg/dL (30-125); Potassium,Urine Random 23 mMol/L (12-62); Sodium,Urine Random < 10.0 mMol/L (20.0-110.0)
--- NOTE | 2024-09-07 09:42 | ESPR_ITS ---
Documentation for date of: 09/07/24 No overnight events. Jaydanet continues to complain of diffuse abdominal tenderness. No rebound tenderness noted. Patient is saturating well on room air. No pyrexia and no chills noted. Na 124-->continue sodium tables 1 gram BID. Consider resuming hypertonic saline if no improvement. Pending Peritoneal Cultures on 09/06/2024-No organism noted, pending final report. Stop Ceftriaxone as no signs of SBP noted. Given soft blood pressure Midodrine increased to 5 mg PO TID. Patient likely to benefit from propranol as outpatient. Paracentesis done at beside. 4 Liters removed. Albumin 25 grams X 2 bags ordered. Continue Lactulose and Rifaximin. Gudelia Medina PGY 2 Subjective Subjective Interval history: No acute events overnight. Patient seen and examined at bedside this AM. Had 3 bowel movements this morning, continue lactulose BID. Patient was complaining of moderate abdominal pain from increased distention, also complaining of back pain. Labs and vitals were reviewed. Blood pressures are soft, systolics 90s to 100s over the past 24 hours, will increase midodrine to 5 mg 3 times daily. Hemoglobin and platelets improving, sodium 125 today. AST 72, ALT 54, albumin 2.7. CT abdomen pelvis showed bibasilar pneumonia, moderate left pleural effusion, cirrhosis with splenomegaly, esophageal and perigastric varices and prominent ascites. Anticipate paracentesis this afternoon. If remove more than 4L will replete with IV albumin 406 g/L removed. Review of systems otherwise negative except what is mentioned above. Exam Vital Signs Temp Pulse Resp BP Pulse Ox O2 Del Method 97.2 F 71 15 90/58 L 96 Room Air 09/07/24 08:00 09/07/24 08:00 09/07/24 08:00 09/07/24 08:00 09/07/24 08:00 09/07/24 08:00 Narrative Exam Physical Exam General: Awake and in no acute distress. Conversational and non-toxic appearing. Cachetic male, sitting up in bed. HEENT: Normocephalic, atraumatic, mucous membranes moist. Heart: Tachycardic. Regular rate and rhythm, normal S1 and S2, no murmurs. Lungs: Clear to auscultation with no wheezing or crackles. Abdomen: Soft, distended, nontender, positive bowel sounds. Prominent ascites. No guarding or rebound tenderness. Neurologic: Alert and oriented x3, no gross neurological deficit, and patient able to move all 4 extremities. No asterixis observed. Extremities: No edema. Skin: No rash or ecchymoses. Objective Labs 09/08/24 03:57 09/08/24 03:57 Labs: Laboratory Results - last 24 hr 09/06/24 09/06/24 09/06/24 10:30 13:39 16:25 WBC RBC Hgb Hct MCV MCH MCHC RDW Std Deviation Plt Count Neut % (Auto) Lymph % (Auto) [place] % (Auto) Eos % (Auto) Baso % (Auto) Neut # (Auto) Lymph # (Auto) [place] # (Auto) Eos # (Auto) Baso # (Auto) Immature Gran # (Auto) Absolute Nucleated RBC Immature Gran % Nucleated RBC % Sodium 121 L 122 L 122 L Potassium Chloride Carbon Dioxide Anion Gap BUN Creatinine Estim Creat Clear Calc eGFR BUN/Creatinine Ratio Glucose Calculated Osmolality Lactic Acid Calcium Corrected Calcium Total Bilirubin AST ALT Alkaline Phosphatase Total Protein Albumin Globulin Albumin/Globulin Ratio Ur Random Creatinine Ur Random Sodium Ur Random Potassium Ur Random Chloride 09/06/24 09/06/24 09/07/24 19:03 22:05 02:50 WBC 6.1 D RBC 3.79 L Hgb 12.6 L Hct 34.3 L MCV 91 MCH 33.2 MCHC 36.7 RDW Std Deviation 47.9 H Plt Count 110 L D Neut % (Auto) 77 Lymph % (Auto) 9 L [place] % (Auto) 10 Eos % (Auto) 2 Baso % (Auto) 1 Neut # (Auto) 4.7 Lymph # (Auto) 0.6 L [place] # (Auto) 0.6 Eos # (Auto) 0.1 Baso # (Auto) 0.1 Immature Gran # (Auto) 0.01 H Absolute Nucleated RBC 0.00 Immature Gran % 0 Nucleated RBC % 0 Sodium 123 L 123 L 125 L Potassium 4.7 Chloride 94 L Carbon Dioxide 23.8 Anion Gap 5 L BUN 8 L Creatinine 0.6 Estim Creat Clear Calc 152.0 eGFR > 60 BUN/Creatinine Ratio 13 Glucose 120 H Calculated Osmolality 247 L Lactic Acid 1.9 Calcium 8.2 L Corrected Calcium 9.2 Total Bilirubin 2.9 H AST 72 H ALT 54 H Alkaline Phosphatase 133 H Total Protein 6.1 Albumin 2.7 L Globulin 3.4 Albumin/Globulin Ratio 0.8 L Ur Random Creatinine Ur Random Sodium Ur Random Potassium Ur Random Chloride 09/07/24 07:30 WBC RBC Hgb Hct MCV MCH MCHC RDW Std Deviation Plt Count Neut % (Auto) Lymph % (Auto) [place] % (Auto) Eos % (Auto) Baso % (Auto) Neut # (Auto) Lymph # (Auto) [place] # (Auto) Eos # (Auto) Baso # (Auto) Immature Gran # (Auto) Absolute Nucleated RBC Immature Gran % Nucleated RBC % Sodium Potassium Chloride Carbon Dioxide Anion Gap BUN Creatinine Estim Creat Clear Calc eGFR BUN/Creatinine Ratio Glucose Calculated Osmolality Lactic Acid Calcium Corrected Calcium Total Bilirubin AST ALT Alkaline Phosphatase Total Protein Albumin Globulin Albumin/Globulin Ratio Ur Random Creatinine 228 H Ur Random Sodium < 10.0 L Ur Random Potassium 23 Ur Random Chloride < 20.0 L Quality Measures Quality Measures VTE prophylaxis Assessment & Plan Assessment Current Active Medications: Generic Name Dose Route Start Last Admin Trade Name Freq PRN Reason Stop Dose Admin Acetaminophen 650 mg 09/05/24 22:36 Acetaminophen 325 Mg Tablet PO 10/05/24 22:35 Q6H PRN PAIN SCALE 1-3 (mild Carvedilol 3.125 mg 09/05/24 23:00 09/06/24 20:27 Carvedilol 3.125 Mg Tablet PO 10/05/24 22:59 3.125 mg BID LEBRON Administration Folic Acid 1 mg 09/06/24 14:30 09/07/24 08:06 Folic Acid 1 Mg Tablet PO 10/06/24 14:29 1 mg QDAY LEBRON Administration Lactulose 30 gm 09/05/24 23:00 09/07/24 08:06 Lactulose Syrup 20 Gm/30 Ml Udc PO 10/05/24 22:59 30 gm BID LEBRON Administration Protocol Midodrine 5 mg 09/07/24 07:32 Midodrine 5 Mg Tablet PO 10/06/24 13:59 TID PRN Hypotension Morphine Sulfate 1 mg 09/06/24 18:48 09/06/24 20:28 Morphine Sulf Inj 10 Mg/Ml Vial IVP 09/11/24 18:47 1 mg Q6HR PRN Administration PAIN SCALE 4-10(Mod-Sev Ondansetron HCl 4 mg 09/05/24 22:36 09/06/24 17:33 Ondansetron Inj 2 Mg/Ml Inj 2 Ml IVP 10/05/24 22:35 4 mg Q6H PRN Administration NAUSEA OR VOMITING Protocol Pantoprazole Sodium 40 mg 09/05/24 23:00 09/07/24 08:06 Pantoprazole Inj 40 Mg Vial IVP 10/05/24 22:59 40 mg BID LEBRON Administration Rifaximin 550 mg 09/06/24 21:00 09/07/24 08:06 Rifaximin 550 Mg Tablet PO 09/13/24 20:59 550 mg BID LEBRON Administration Sennosides 1 tab 09/05/24 22:36 Senna Tablet PO 10/05/24 22:35 QDAY PRN constipation Protocol Sodium Chloride 1 gm 09/07/24 09:00 09/07/24 08:06 Sodium Chloride 1 Gm Tablet PO 10/07/24 08:59 1 gm BID LEBRON Administration Thiamine HCl 100 mg 09/06/24 14:30 09/07/24 08:06 Thiamine 100 Mg Tablet PO 10/06/24 14:29 100 mg QDAY LEBRON Administration Plan Patient is a 39-year-old male with past medical history of hepatic cirrhosis with ascites and esophageal varices status post banding, all secondary to alcohol abuse who presented on 09/06 for generalized weakness, admitted for symptomatic hyponatremia. #Acute on chronic decompensated alcohol cirrhosis secondary to Alcohol with ascites and Esophageal Varices #Esophageal varices status post banding (03/11/2024) #History of alcohol abuse Status post paracentesis 09/05 in ED, removed 2.5 L. Per chart review patient has had multiple paracentesis over the past year. Abdomen continues to have a soft but distended. U-Tox negative for alcohol and other other illicit substances. Patient used to drink a pack of beer every day for 17 years, sober since December 2023. Per family, patient is on transplant list. Due to decompensated cirrhosis, patient developed esophageal varices, banded on 03/11/2024. CT abdomen pelvis 09/07 showed bibasilar pneumonia, moderate left pleural effusion, cirrhosis with splenomegaly, esophageal and perigastric varices and prominent ascites. Child-Moore score: 10; Class C (life expectancy 1-3 years, abdominal surgery rosmery-operative mortality 82%) MELD-Na score: 25 points, estimated 90 day mortality 14-15% Plan: - S/p paracentesis, removal of 4L cloudy, light pink fluid - Started on IV albumin 25 g 100 mls/hr - Continue home dose rifaximin - Continue home dose Protonix #Symptomatic hyponatremia, hypervolemia, hypoosmotic - improving #Secondary to cirrhosis #General Weakness PCP office, sodium was 119. Improved to 121 but dropped again to 119 due to LR given in ED. Slowly uptrending. Likely secondary to decreased circulatory effect from cirrhosis, causing kidneys to retain water and increased ADH secretion. Na 125 @ 0250 09/07 Plan: - S/p hypertonic saline 500 mL IV at 35 cc/h - Start on salt tablets 1 g BID - Discontinue IV ceftriaxone as patient does not have SBO - Goal 4-6mEq sodium per 24 hours (goal 131) - Pending urine electrolytes - Check sodium every 6 hours - Fluid restriction 1800 mL/day - Strict I's and O's - Consulted nephrology Dr. Milner, appreciate recommendations #Normocytic anemia - improving #Thrombocytopenia - improving Secondary to chronic decompensated alcohol cirrhosis. - Monitor H&H and platelet count - Continue home dose thiamine, folate, amd multivitamin - Transfuse if hemoglobin less than 7 - Transfuse platelets if less than 10,000 #Hypotension #History of hypertension Secondary to chronic decompensated alcoholic cirrhosis. Blood pressures are soft on admission. - Increase midodrine to 5 mg TID - Hold home dose Lasix - Consider restarting spironolactone if blood pressure improves - Continue to monitor BP Health Maintenance Disposition: Further management of symptomatic hyponatremia DVT prophylaxis: Not needed as patient is ambulatory GI prophylaxis: Senna Diet: Cardiac CODE STATUS: Full Patient plan of care was discussed with the resident, Dr. Medina, and attending physician, Dr. Lima. Malena Mendes, PGY-1 - The patient's plan was discussed with attending Dr. Clarence Medina MD PGY2 Internal Medicine Attending Provider Attestation/Addendum I attest that I was physically present for the evaluation, physical examination, lab and imaging review of the patient with the residents. I discussed the case with the residents and agree with the findings and plans of care as documented above. Vicente Lima MD
[2024-09-07 12:00] VITALS: BP 86/51; PULSE 70; PULSE 78; RESP 15; TEMP 36.4; O2SAT 97
[2024-09-07 12:39] LABS: Basophils # (Auto) 0.0 Thou/mm3 (0.0-0.2); Basophils % (Auto) 0 % (0-2.5); Eosinophils # (Auto) 0.1 Thou/mm3 (0.0-0.5); Eosinophils % (Auto) 2 % (0-10); Hematocrit 34.7 % (41.0-53.0); Hemoglobin 12.8 g/dL (13.5-16.0); Immature Granulocytes Auto 0.03 Thou/mm3 (0.00-0.00); Lymphocytes # (Auto) 0.4 Thou/mm3 (1.0-4.8); Lymphocytes % (Auto) 5 % (10-50); Mean Corpuscular HGB Conc 36.9 g/dl (31.0-37.0); Mean Corpuscular Hemoglobin 34.0 pg (25.0-35.0); Mean Corpuscular Volume 92 fL (80-100); Monocytes # (Auto) 0.7 Thou/mm3 (0.0-0.8); Monocytes % (Auto) 11 % (0-12); Neutrophils # (Auto) 5.6 Thou/mm3 (1.8-7.7); Neutrophils % (Auto) 82 % (37-80); Nucleated Red Blood Cell # 0.00 Thou/mm3 (0.00-0.00); Nucleated Red Blood Cell % 0 /100 WBC (0); RDW Standard Deviation 49.4 fL (35.1-43.9); Red Blood Count 3.76 Miln/mm3 (4.50-5.90); White Blood Count 6.9 Thou/mm3 (3.8-10.6)
[2024-09-07 12:40] LABS: Platelet Count 73 Thou/mm3 (140-440)
[2024-09-07 12:51] LABS: Alanine Aminotransferase 52 U/L (10-49); Albumin, Serum 2.4 gm/dL (3.5-5.0); Albumin/Globulin Ratio 0.8 (1.2-2.2); Alkaline Phosphatase 118 U/L (46-116); Anion Gap 4 (7-16); Aspartate Amino Transferase 77 U/L (0-34); BUN/Creatinine Ratio 14 Ratio (12-20); Bilirubin,Total 3.4 mg/dL (0.3-1.2); Blood Urea Nitrogen 11 mg/dL (9-23); Calcium 7.8 mg/dL (8.3-10.6); Calcium (Corrected) 9.1 mg/dL (8.5-10.1); Carbon Dioxide 24.4 mMol/L (20.0-31.0); Chloride 96 mMol/L (98-107); Creatinine (Component) 0.8 mg/dL (0.6-1.3); Estimated Creatinine Clearance 122.3 mL/min (>60); Globulin 3.2 gm/dL (2.3-3.5); Glucose 133 mg/dL (74-106); Magnesium 1.6 mg/dL (1.6-2.6); Osmolality,Calculated 251 (275-295); Phosphorous 3.7 mg/dL (2.4-5.1); Potassium 4.1 mMol/L (3.4-5.1); Sodium 124 mMol/L (136-145); Total Protein 5.6 gm/dL (5.7-8.2); eGFR > 60 See Note
[2024-09-07 13:09] LABS: Slide Review Platelets confirmed
[2024-09-07 16:00] VITALS: BP 96/54; PULSE 77; PULSE 79; RESP 16; TEMP 36.6; O2SAT 96
--- NOTE | 2024-09-07 16:19 | PD.RESPROC ---
PROCEDURES: Procedure Date / Time 09/07/24 1335 Procedural Time Out Time out performed: 1340 Procedure Narrative Procedure Narrative: Attending attestation: I was present for entire procedure. Patient tolerated procedure well with no immediate complications. Minimal blood loss. Paracentesis Indication: Ascites Informed consent obtained: from patient Time out done, and the following verified: correct patient, side and site, procedure and patient position Procedure: diagnostic paracentesis Location: RLQ Local anesthetic used: lidocaine 1% Amount of anesthesia used (mL): 20 Bedside ultrasound used: yes, Ascites confirmed and location marked Preparation: sterile prep and drape Amount of fluid obtained (mL): 4,000 Fluid: cloudy Post procedure exam: awake, alert Patient tolerated procedure: well Complications: none Procedure comment: Date: 09/07/24 Indication: Ascites Resident: Dr. Malena Mendes DO Supervising attending: Dr. Sundar Stokes MD Consent was obtained and a time-out was completed verifying correct patient, procedure, site, and positioning. The patient was placed in appropriate dependent position for paracentesis. The patient?s right lower abdomen was prepped below the umbilicus and draped in sterile fashion. 1% Lidocaine was used to anesthetize the surrounding skin area, 20 mL used. Ultrasound was used to identify the fluid pocket. The needle was introduced into the peritoneal cavity. Appropriate fluid return was obtained and fluid was removed for study. The needle was attached to a drainage bottle and 4000 mL of fluid were removed. The needle was then removed and pressure was held for 5 minutes before placing bandage. The patient tolerated the procedure well and there were no complications. Blood loss was minimal.
--- NOTE | 2024-09-07 16:47 | PC.PT ---
PT approached patient at 16:30 for PT eval. Per RN patient is xI and ambulating to the bathroom already. PT entered patient's room and patient mentioned he has been ambulating to the bathroom xI. Patient ambulated into the crisostomo and touched the opposite wall prior to returning to bed. Patient is xI with bed mobility, transfers, and ambulation. Will cancel PT evaluation.
[2024-09-07] MEDS: ALBUMIN HUMAN 25% IVPB 25 GM/100 ML BTL IV (16:55)
[2024-09-07 19:11] LABS: Sodium 124 mMol/L (136-145)
[2024-09-07 20:00] VITALS: BP 118/52; PULSE 74; PULSE 75; RESP 18; TEMP 36.5; O2SAT 93
[2024-09-08] VITALS (9 sets, daily range): BP systolic 93–106; BP diastolic 51–67; PULSE 70–85; RESP 12–23; TEMP 36.6–37.9; O2SAT 92–95; BMI 21.0
[2024-09-08 01:02] LABS: Sodium 124 mMol/L (136-145)
[2024-09-08] MEDS: MIDODRINE 5 MG TABLET PO (04:07)
[2024-09-08 05:03] LABS: Basophils # (Auto) 0.1 Thou/mm3 (0.0-0.2); Basophils % (Auto) 1 % (0-2.5); Eosinophils # (Auto) 0.1 Thou/mm3 (0.0-0.5); Eosinophils % (Auto) 2 % (0-10); Hematocrit 32.3 % (41.0-53.0); Hemoglobin 11.8 g/dL (13.5-16.0); Immature Granulocytes Auto 0.02 Thou/mm3 (0.00-0.00); Lymphocytes # (Auto) 0.6 Thou/mm3 (1.0-4.8); Lymphocytes % (Auto) 9 % (10-50); Mean Corpuscular HGB Conc 36.5 g/dl (31.0-37.0); Mean Corpuscular Hemoglobin 33.4 pg (25.0-35.0); Mean Corpuscular Volume 92 fL (80-100); Monocytes # (Auto) 0.9 Thou/mm3 (0.0-0.8); Monocytes % (Auto) 14 % (0-12); Neutrophils # (Auto) 4.9 Thou/mm3 (1.8-7.7); Neutrophils % (Auto) 74 % (37-80); Nucleated Red Blood Cell # 0.00 Thou/mm3 (0.00-0.00); Nucleated Red Blood Cell % 0 /100 WBC (0); RDW Standard Deviation 49.3 fL (35.1-43.9); Red Blood Count 3.53 Miln/mm3 (4.50-5.90); White Blood Count 6.6 Thou/mm3 (3.8-10.6)
[2024-09-08 05:44] LABS: Alanine Aminotransferase 43 U/L (10-49); Albumin, Serum 2.4 gm/dL (3.5-5.0); Albumin/Globulin Ratio 0.9 (1.2-2.2); Alkaline Phosphatase 100 U/L (46-116); Anion Gap 3 (7-16); Aspartate Amino Transferase 61 U/L (0-34); BUN/Creatinine Ratio 16 Ratio (12-20); Bilirubin,Total 3.9 mg/dL (0.3-1.2); Blood Urea Nitrogen 11 mg/dL (9-23); Calcium 7.8 mg/dL (8.3-10.6); Calcium (Corrected) 9.1 mg/dL (8.5-10.1); Carbon Dioxide 23.1 mMol/L (20.0-31.0); Chloride 98 mMol/L (98-107); Creatinine (Component) 0.7 mg/dL (0.6-1.3); Estimated Creatinine Clearance 139.8 mL/min (>60); Globulin 2.8 gm/dL (2.3-3.5); Glucose 100 mg/dL (74-106); LDH (Lactate Dehydrogenase) 135 U/L (120-246); Magnesium 1.4 mg/dL (1.6-2.6); Osmolality,Calculated 249 (275-295); Phosphorous 3.2 mg/dL (2.4-5.1); Potassium 4.2 mMol/L (3.4-5.1); Sodium 124 mMol/L (136-145); Total Protein 5.2 gm/dL (5.7-8.2); eGFR > 60 See Note
[2024-09-08 05:54] LABS: Platelet Count 71 Thou/mm3 (140-440); Slide Review Platelets confirmed
--- NOTE | 2024-09-08 08:51 | ESPR_ITS ---
Documentation for date of: 09/08/24 Subjective Subjective Interval history: Chidi Anderson is a 39-year-old male with a PMH of hepatic cirrhosis, ascites, and esophageal varices status post endoscopic band ligation who presents today with generalized weakness. Of note, patient was recently seen in the ED on 08/10/24 for ascites for which he received paracentesis. On admission, patient's stated, who was present at the time of interview, patient started feeling weak, tired, and sleepy starting 15 days ago. She says that he has recently been so fatigued that he cannot get out of bed. 2 days ago, the patient was seen by his PCP where it was found that his sodium level was 113 and patient was urged to seek treatment at the hospital. Besides generalized weakness, patient also endorses longstanding right upper quadrant abdominal pain and generalized body ache. He denies any recent travel history, sick contacts, or current pain outside of the abdominal pain. This morning patient was seen and examined on the floors with at the bedside. Patient states he came to the hospital after his PCP saw his sodium levels were low. In addition to previously report history above, patient states he stopped drinking alcohol in December 2023. States he was diagnosed with Cirrhosis in February 2024. Patient states he is feeling okay, endorses some weakness still along with some RUQ pain. Patient denies personal/family of kidney disease. Patient denies any new complaints/concerns. Patient denies fever, chest pain, shortness of breath. ED Course: Vitals showed: BP 104/66 HR 76 RR 18 Temp 97.9 SpO2 95% on room air CBC showed low Hgb 12.6 (MCV 89, RDW 46.0), and low platelet count 99. Coagulation panel showed prolonged PTT 16.9, and high INR 1.6. CMP showed marked hyponatremia 121, marked hypochloremia 87, low calculated osmolality 243, normal corrected calcium 8.9, hypomagnesemia 1.4, elevated total bilirubin 3.8, elevated AST 84 and ALT 52, elevated alkaline phosphatase 133, high ammonia 53, and elevated amylase 136 and lipase 101. UA, UDS, and ascitic fluid analysis were negative. Imaging: EKG showed sinus rhythm with borderline left axis deviation. In the ED, patient was given 1 L normal saline bolus, IV ceftriaxone, and magnesium. Patient was admitted along with consult to nephrology for the work-up and management of symptomatic hyponatremia. 09/07/2024: No acute events overnight. Patient seen and examined at bedside with present. Vitals and labs reviewed. Patient states abdominal pain is feeling better this morning. Patient denies any complaints/concerns. Patient denies fever, chest pain, shortness of breath. Na 125 this morning. 09/08/2024:No acute events overnight. Patient had 4L taken out from paracentesis yesterday. Patient seen and examined at bedside with present. Vitals and labs reviewed. Patient was walking around the floors today. Patient says he is doing better. Patient denies any complaints/concerns. Patient denies fever, chest pain, abdominal pain, shortness of breath. Na stable at 124. Exam Vital Signs Temp Pulse Resp BP Pulse Ox O2 Del Method 98.0 F 70 16 94/61 94 L Room Air 09/08/24 08:00 09/08/24 08:00 09/08/24 08:00 09/08/24 08:00 09/08/24 08:00 09/08/24 08:00 Narrative Exam General: Awake and in no acute distress. Conversational and non-toxic appearing. HEENT: Normocephalic, atraumatic, mucous membranes moist. Heart: Regular rate and rhythm, normal S1 and S2, no murmurs. Lungs: Clear to auscultation with no wheezing or crackles. Abdomen: Soft, non-tender. Distended, shifting fluid wave, positive bowel sounds. ?No guarding or rebound tenderness. Neurologic: Alert and oriented x3, no gross neurological deficit, and patient able to move all 4 extremities. Extremities: Mild LE edema. Skin: No rash or ecchymoses. Objective Labs 09/08/24 03:57 09/08/24 18:21 Labs: Laboratory Results - last 24 hr 09/07/24 09/07/24 09/07/24 07:30 12:05 17:57 WBC 6.9 RBC 3.76 L Hgb 12.8 L Hct 34.7 L MCV 92 MCH 34.0 MCHC 36.9 RDW Std Deviation 49.4 H Plt Count 73 L D Neut % (Auto) 82 H Lymph % (Auto) 5 L [place] % (Auto) 11 Eos % (Auto) 2 Baso % (Auto) 0 Neut # (Auto) 5.6 Lymph # (Auto) 0.4 L [place] # (Auto) 0.7 Eos # (Auto) 0.1 Baso # (Auto) 0.0 Immature Gran # (Auto) 0.03 H Absolute Nucleated RBC 0.00 Immature Gran % 0 Nucleated RBC % 0 Sodium 124 L 124 L Potassium 4.1 D Chloride 96 L Carbon Dioxide 24.4 Anion Gap 4 L BUN 11 Creatinine 0.8 Estim Creat Clear Calc 122.3 eGFR > 60 BUN/Creatinine Ratio 14 Glucose 133 H Calculated Osmolality 251 L Calcium 7.8 L Corrected Calcium 9.1 Phosphorus 3.7 Magnesium 1.6 Total Bilirubin 3.4 H D AST 77 H ALT 52 H Alkaline Phosphatase 118 H Lactate Dehydrogenase Total Protein 5.6 L Albumin 2.4 L Globulin 3.2 Albumin/Globulin Ratio 0.8 L Ur Random Creatinine 228 H Ur Random Sodium < 10.0 L Ur Random Potassium 23 Ur Random Chloride < 20.0 L Misc Test Result Platelets confirmed 09/08/24 09/08/24 00:30 03:57 WBC 6.6 RBC 3.53 L Hgb 11.8 L Hct 32.3 L MCV 92 MCH 33.4 MCHC 36.5 RDW Std Deviation 49.3 H Plt Count 71 L Neut % (Auto) 74 Lymph % (Auto) 9 L [place] % (Auto) 14 H Eos % (Auto) 2 Baso % (Auto) 1 Neut # (Auto) 4.9 Lymph # (Auto) 0.6 L [place] # (Auto) 0.9 H Eos # (Auto) 0.1 Baso # (Auto) 0.1 Immature Gran # (Auto) 0.02 H Absolute Nucleated RBC 0.00 Immature Gran % 0 Nucleated RBC % 0 Sodium 124 L 124 L Potassium 4.2 Chloride 98 Carbon Dioxide 23.1 Anion Gap 3 L BUN 11 Creatinine 0.7 Estim Creat Clear Calc 139.8 eGFR > 60 BUN/Creatinine Ratio 16 Glucose 100 Calculated Osmolality 249 L Calcium 7.8 L Corrected Calcium 9.1 Phosphorus 3.2 Magnesium 1.4 L Total Bilirubin 3.9 H D AST 61 H ALT 43 Alkaline Phosphatase 100 Lactate Dehydrogenase 135 Total Protein 5.2 L Albumin 2.4 L Globulin 2.8 Albumin/Globulin Ratio 0.9 L Ur Random Creatinine Ur Random Sodium Ur Random Potassium Ur Random Chloride Misc Test Result Platelets confirmed Quality Measures Quality Measures VTE prophylaxis Assessment & Plan Assessment Current Active Medications: Generic Name Dose Route Start Last Admin Trade Name Marci PRN Reason Stop Dose Admin Acetaminophen 650 mg 09/05/24 22:36 Acetaminophen 325 Mg Tablet PO 10/05/24 22:35 Q6H PRN PAIN SCALE 1-3 (mild Carvedilol 3.125 mg 09/05/24 23:00 09/06/24 20:27 Carvedilol 3.125 Mg Tablet PO 10/05/24 22:59 3.125 mg BID LEBRON Administration Folic Acid 1 mg 09/06/24 14:30 09/07/24 08:06 Folic Acid 1 Mg Tablet PO 10/06/24 14:29 1 mg QDAY LEBRON Administration Albumin Human 25 gm in 100 mls @ 100 mls/hr 09/07/24 15:51 09/07/24 16:55 Albuminar-25 Ivpb IV 09/08/24 09:59 100 mls/hr QDAY LEBRON Administration Magnesium Sulfate 4 gm in 50 mls @ 12.5 mls/hr 09/08/24 06:54 Magnesium Sulfate Ivpb IV 09/08/24 10:53 X1 ONE Lactulose 30 gm 09/07/24 21:00 09/07/24 21:29 Lactulose Syrup 20 Gm/30 Ml Udc PO 10/07/24 20:59 30 gm BID LEBRON Administration Protocol Midodrine 5 mg 09/07/24 07:32 09/08/24 04:07 Midodrine 5 Mg Tablet PO 10/06/24 13:59 5 mg TID PRN Administration Hypotension Morphine Sulfate 1 mg 09/06/24 18:48 09/06/24 20:28 Morphine Sulf Inj 10 Mg/Ml Vial IVP 09/11/24 18:47 1 mg Q6HR PRN Administration PAIN SCALE 4-10(Mod-Sev Ondansetron HCl 4 mg 09/05/24 22:36 09/06/24 17:33 Ondansetron Inj 2 Mg/Ml Inj 2 Ml IVP 10/05/24 22:35 4 mg Q6H PRN Administration NAUSEA OR VOMITING Protocol Pantoprazole Sodium 40 mg 09/08/24 09:00 Pantoprazole 40 Mg Tablet PO 10/08/24 08:59 BID LEBRON Rifaximin 550 mg 09/06/24 21:00 07/30/25 21:29 Rifaximin 550 Mg Tablet PO 09/13/24 20:59 550 mg BID LEBRON Administration Sennosides 1 tab 09/05/24 22:36 Senna Tablet PO 10/05/24 22:35 QDAY PRN constipation Protocol Sodium Chloride 1 gm 09/08/24 14:00 Sodium Chloride 1 Gm Tablet PO 10/08/24 13:59 TID LEBRON Thiamine HCl 100 mg 09/06/24 14:30 09/07/24 08:06 Thiamine 100 Mg Tablet PO 10/06/24 14:29 100 mg QDAY LEBRON Administration Plan Chidi Anderson is a 39-year-old male with a PMH of hepatic cirrhosis, ascites, and esophageal varices status post endoscopic band ligation who presents today with generalized weakness. Admission along with consult to nephrology for the work-up and management of symptomatic hyponatremia. #symptomatic hypochloremic hypo-osmolar Hyponatremia Suspecting due to combination of poor oral intake, diuretic use, decrease in effective circulating volume (3rd spacing) from splanchnic vasodilation due to cirrhosis. Patient stopped drinking alcohol in December 2023. Diagnosed with Cirrhosis in February 2024. Volume status: ascitic abdomen (4L out from paracentesis 09/07), extremities without edema. Admission labs: Na 121, Chloride 87, Osmolality 243 Plan: -Increasing 1 gm Salt tablet to TID, may stop when sodium level reaches 126. -Follow up with Dr. Milner outpatient in 1 week. -Gave 500 cc of 3% hypertonic saline at 35 ml/hr (09/06). Stop for now. 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 Annia Biggs MD PGY-1 Attending Provider Attestation/Addendum patient seen and examined with resident physician Dr. Biggs. Note reviewed, agree with findings and recommendations. Plan of care discussed with at bedside Patient admitted with weakness and noted to have symptomatic hyponatremia. Was started on 3% hypertonic saline. History of end-stage liver disease with ascites needing paracentesis. Sodium 124 . Increase salt tablets to 3 times daily. Patient had large-volume paracentesis and 4 L was tapped yesterday. Clinically seems to be stable. Resume Aldactone 100 mg p.o. daily.
--- NOTE | 2024-09-08 09:10 | ESPR_ITS ---
Documentation for date of: 09/08/24 No overnight events. Patient Na 124, further water restict patient to 1200 cc per day. Continue salt tablets TID given recommendations from nephrology. Plan to discharge within the next 24 hours Senior Resident Attestation: I have discussed the case with supervising physician and director internal audit physician involved in the care of patient. I personally saw and examined patient and discussed the assessment and plan with the entire medical team, including attending. I agree with assessment and plan as documented below Gudelia Medina MD PGY-2 Internal Medicine Subjective Subjective Interval history: No acute events overnight. Patient seen and examined at bedside this AM. No complaints this morning. On exam patient had very mild ascites without abdominal tenderness, exam otherwise unremarkable. Labs and vitals were reviewed. Patient had 6 bowel movements yesterday. Systolic blood pressure is still on the low side (90-1 100s). Hemoglobin at baseline. Sodium 124. Magnesium 1.4, repleted IV. Albumin 2.7. Patient is complaining of left shoulder pain radiating down to flank. Got EKG, unremarkable. No ST elevations or depressions noted. On exam, tenderness on palpation of left shoulder. Of note patient was sleeping on that side all night and IV ports on that side, was repleted magnesium this morning. Patient had left sided pleural effusion on last chest x-ray however patient is now breathing better, oxygen saturation improved on room air. Will continue to monitor. Given morphine IV 1 g. Will increase salt tabs to 3 times daily, give 2 this morning. Per nephrology stop salt tabs when sodium becomes 126, overall goal 131. Sodium every 6 hours checks. Fluid restriction decreased to 1200 mL. Changed to regular diet from cardiac. Pending fluid cytology. Previous fluid was transudative per lights criteria, likely will be the same. Patient reports that drain fluid is similar to previous samples. Will continue midodrine 3 times daily. Review of systems otherwise negative except what is mentioned above. Exam Vital Signs Temp Pulse Resp BP Pulse Ox O2 Del Method 98.0 F 70 16 94/61 94 L Room Air 09/08/24 08:00 09/08/24 08:00 09/08/24 08:00 09/08/24 08:00 09/08/24 08:00 09/08/24 08:00 Narrative Exam Physical Exam General: Awake and in no acute distress. Conversational and non-toxic appearing. Cachetic male, sitting up in bed. HEENT: Normocephalic, atraumatic, mucous membranes moist. Heart: Regular rate and rhythm, normal S1 and S2, no murmurs. Lungs: Clear to auscultation with no wheezing or crackles. Abdomen: Soft, distended, nontender, positive bowel sounds. Mild ascites. No guarding or rebound tenderness. Paracentesis site intact, no leaking fluid. Neurologic: Alert and oriented x3, no gross neurological deficit, and patient able to move all 4 extremities. No asterixis observed. Extremities: No edema. Skin: No rash or ecchymoses. Objective Labs 09/08/24 03:57 09/08/24 18:21 Labs: Laboratory Results - last 24 hr 09/07/24 09/07/24 09/07/24 07:30 12:05 17:57 WBC 6.9 RBC 3.76 L Hgb 12.8 L Hct 34.7 L MCV 92 MCH 34.0 MCHC 36.9 RDW Std Deviation 49.4 H Plt Count 73 L D Neut % (Auto) 82 H Lymph % (Auto) 5 L [place] % (Auto) 11 Eos % (Auto) 2 Baso % (Auto) 0 Neut # (Auto) 5.6 Lymph # (Auto) 0.4 L [place] # (Auto) 0.7 Eos # (Auto) 0.1 Baso # (Auto) 0.0 Immature Gran # (Auto) 0.03 H Absolute Nucleated RBC 0.00 Immature Gran % 0 Nucleated RBC % 0 Sodium 124 L 124 L Potassium 4.1 D Chloride 96 L Carbon Dioxide 24.4 Anion Gap 4 L BUN 11 Creatinine 0.8 Estim Creat Clear Calc 122.3 eGFR > 60 BUN/Creatinine Ratio 14 Glucose 133 H Calculated Osmolality 251 L Calcium 7.8 L Corrected Calcium 9.1 Phosphorus 3.7 Magnesium 1.6 Total Bilirubin 3.4 H D AST 77 H ALT 52 H Alkaline Phosphatase 118 H Lactate Dehydrogenase Total Protein 5.6 L Albumin 2.4 L Globulin 3.2 Albumin/Globulin Ratio 0.8 L Ur Random Creatinine 228 H Ur Random Sodium < 10.0 L Ur Random Potassium 23 Ur Random Chloride < 20.0 L Misc Test Result Platelets confirmed 09/08/24 09/08/24 00:30 03:57 WBC 6.6 RBC 3.53 L Hgb 11.8 L Hct 32.3 L MCV 92 MCH 33.4 MCHC 36.5 RDW Std Deviation 49.3 H Plt Count 71 L Neut % (Auto) 74 Lymph % (Auto) 9 L [place] % (Auto) 14 H Eos % (Auto) 2 Baso % (Auto) 1 Neut # (Auto) 4.9 Lymph # (Auto) 0.6 L [place] # (Auto) 0.9 H Eos # (Auto) 0.1 Baso # (Auto) 0.1 Immature Gran # (Auto) 0.02 H Absolute Nucleated RBC 0.00 Immature Gran % 0 Nucleated RBC % 0 Sodium 124 L 124 L Potassium 4.2 Chloride 98 Carbon Dioxide 23.1 Anion Gap 3 L BUN 11 Creatinine 0.7 Estim Creat Clear Calc 139.8 eGFR > 60 BUN/Creatinine Ratio 16 Glucose 100 Calculated Osmolality 249 L Calcium 7.8 L Corrected Calcium 9.1 Phosphorus 3.2 Magnesium 1.4 L Total Bilirubin 3.9 H D AST 61 H ALT 43 Alkaline Phosphatase 100 Lactate Dehydrogenase 135 Total Protein 5.2 L Albumin 2.4 L Globulin 2.8 Albumin/Globulin Ratio 0.9 L Ur Random Creatinine Ur Random Sodium Ur Random Potassium Ur Random Chloride Misc Test Result Platelets confirmed Quality Measures Quality Measures VTE prophylaxis Assessment & Plan Assessment Current Active Medications: Generic Name Dose Route Start Last Admin Trade Name Freq PRN Reason Stop Dose Admin Acetaminophen 650 mg 09/05/24 22:36 Acetaminophen 325 Mg Tablet PO 10/05/24 22:35 Q6H PRN PAIN SCALE 1-3 (mild Carvedilol 3.125 mg 09/05/24 23:00 09/06/24 20:27 Carvedilol 3.125 Mg Tablet PO 10/05/24 22:59 3.125 mg BID LEBRON Administration Folic Acid 1 mg 09/06/24 14:30 09/07/24 08:06 Folic Acid 1 Mg Tablet PO 10/06/24 14:29 1 mg QDAY LEBRON Administration Albumin Human 25 gm in 100 mls @ 100 mls/hr 09/07/24 15:51 09/07/24 16:55 Albuminar-25 Ivpb IV 09/08/24 09:59 100 mls/hr QDAY LEBRON Administration Magnesium Sulfate 4 gm in 50 mls @ 12.5 mls/hr 09/08/24 06:54 Magnesium Sulfate Ivpb IV 09/08/24 10:53 X1 ONE Lactulose 30 gm 09/07/24 21:00 09/07/24 21:29 Lactulose Syrup 20 Gm/30 Ml Udc PO 10/07/24 20:59 30 gm BID LEBRON Administration Protocol Midodrine 5 mg 09/07/24 07:32 09/08/24 04:07 Midodrine 5 Mg Tablet PO 10/06/24 13:59 5 mg TID PRN Administration Hypotension Morphine Sulfate 1 mg 09/06/24 18:48 09/06/24 20:28 Morphine Sulf Inj 10 Mg/Ml Vial IVP 09/11/24 18:47 1 mg Q6HR PRN Administration PAIN SCALE 4-10(Mod-Sev Ondansetron HCl 4 mg 09/05/24 22:36 09/06/24 17:33 Ondansetron Inj 2 Mg/Ml Inj 2 Ml IVP 10/05/24 22:35 4 mg Q6H PRN Administration NAUSEA OR VOMITING Protocol Pantoprazole Sodium 40 mg 09/08/24 09:00 Pantoprazole 40 Mg Tablet PO 10/08/24 08:59 BID LEBRON Rifaximin 550 mg 09/06/24 21:00 09/07/24 21:29 Rifaximin 550 Mg Tablet PO 09/13/24 20:59 550 mg BID LEBRON Administration Sennosides 1 tab 09/05/24 22:36 Senna Tablet PO 10/05/24 22:35 QDAY PRN constipation Protocol Sodium Chloride 1 gm 09/08/24 14:00 Sodium Chloride 1 Gm Tablet PO 10/08/24 13:59 TID LEBRON Thiamine HCl 100 mg 09/06/24 14:30 09/07/24 08:06 Thiamine 100 Mg Tablet PO 10/06/24 14:29 100 mg QDAY LEBRON Administration Plan Patient is a 39-year-old male with past medical history of hepatic cirrhosis with ascites and esophageal varices status post banding, all secondary to alcohol abuse who presented on 09/06 for generalized weakness, admitted for symptomatic hyponatremia. #Acute on chronic decompensated alcohol cirrhosis secondary to Alcohol with ascites and Esophageal Varices #Esophageal varices status post banding (03/11/2024) #History of alcohol abuse Status post paracentesis 09/05 in ED, removed 2.5 L. Per chart review patient has had multiple paracentesis over the past year. Abdomen continues to have a soft but distended. U-Tox negative for alcohol and other other illicit substances. Patient used to drink a pack of beer every day for 17 years, sober since December 2023. Per family, patient is on transplant list. Due to decompensated cirrhosis, patient developed esophageal varices, banded on 03/11/2024. CT abdomen pelvis 09/07 showed bibasilar pneumonia, moderate left pleural effusion, cirrhosis with splenomegaly, esophageal and perigastric varices and prominent ascites. S/p paracentesis 09/07 - removed 4L pink, cloudy fluid; pending cytology. S/p IV albumin 25 g. Light's criteria based on cytology 09/06: transudative. Low suspicion for infection, hold antibiotics. Child-Moore score: 10; Class C (life expectancy 1-3 years, abdominal surgery rosmery-operative mortality 82%) MELD-Na score: 25 points, estimated 90 day mortality 14-15% Plan: - Pending fluid cytology - Continue home dose rifaximin - Continue home dose Protonix #Symptomatic hyponatremia, hypervolemia, hypoosmotic - improving #Secondary to cirrhosis #General Weakness PCP office, sodium was 119. Improved to 121 but dropped again to 119 due to LR given in ED. Slowly uptrending. Likely secondary to decreased circulatory effect from cirrhosis, causing kidneys to retain water and increased ADH secretion. S/p hypertonic saline x1. Plan: - Increase salt tablets 1 g TID per nephrology - Goal 4-6mEq sodium per 24 hours (goal 131) - Pending urine electrolytes - Check sodium every 6 hours - Fluid restriction 1200 mL/day - Strict I's and O's - Consulted nephrology Dr. Milner, appreciate recommendations #Normocytic anemia - improving #Thrombocytopenia - improving Secondary to chronic decompensated alcohol cirrhosis. - Monitor H&H and platelet count - Continue home dose thiamine, folate, amd multivitamin - Transfuse if hemoglobin less than 7 - Transfuse platelets if less than 10,000 #Hypotension #History of hypertension Secondary to chronic decompensated alcoholic cirrhosis. Blood pressures are soft on admission. - Continue midodrine 5 mg TID - Hold home dose Lasix - Consider restarting spironolactone if blood pressure improves - Continue to monitor BP Health Maintenance Disposition: Further management of symptomatic hyponatremia DVT prophylaxis: Not needed as patient is ambulatory GI prophylaxis: Senna Diet: Cardiac CODE STATUS: Full Patient plan of care was discussed with the resident, Dr. Medina, and attending physician, Dr. Lima. Malena Mendes, PGY-1 Attending Provider Attestation/Addendum I attest that I was physically present for the evaluation, physical examination, lab and imaging review of the patient with the residents. I discussed the case with the residents and agree with the findings and plans of care as documented above. At bedside today, patient states he is feeling better and denies any new complaints. Underwent US guided paracentesis yesterday, removal of 4L of pink fluid, similar to previous paracentesis. Sodium level is 124 this morning, discussed with nephrology, we will increase salt tablets to 3 times daily. Magnesium level is 1.4, repleted accordingly. We will continue to monitor his sodium level closely. Vicente Lima MD
--- NOTE | 2024-09-08 09:18 | PC.SS ---
Follow up note: Correct sodium. Pt will return home upon dc.
[2024-09-08] MEDS: FOLIC ACID 1 MG TABLET PO (09:39)
[2024-09-08] MEDS: LACTULOSE SYRUP 20 GM/30 ML UDC 30 GM PO ×2 (09:39→21:11)
[2024-09-08] MEDS: PANTOPRAZOLE 40 MG TABLET PO ×2 (09:40→21:07)
[2024-09-08] MEDS: SODIUM CHLORIDE 1 GM TABLET PO ×4 (09:40→21:07)
[2024-09-08] MEDS: Magnesium Sulfate 4 GM Ivpb 4 GM/50 ML BAG IV (09:40)
[2024-09-08] MEDS: ALBUMIN HUMAN 25% IVPB 25 GM/100 ML BTL IV (09:40)
[2024-09-08] MEDS: THIAMINE 100 MG TABLET PO (09:40)
--- NOTE | 2024-09-08 13:16 | EKG_ITS ---
[facility] Test Date: 2024-09-08 Pat Name: MOLLY POSADAS Department: Room: S261A Gender: Male Expanded Function Dental Assistant: ZACKARY : [id number] Requested By: Gudelia Medina Order Number: [id number] Reading MD: Gudelia Medina Measurements Intervals [place] Rate: 79 P: -35 NV: 160 QRS: -31 QRSD: 106 T: 37 QT: 359 QTc: 413 Interpretive Statements SINUS RHYTHM MARKED LEFT AXIS DEVIATION Compared to ECG 09/05/2024 23:19:42 No significant changes /[id number]/[id number]
[2024-09-08 13:19] LABS: Sodium 124 mMol/L (136-145)
--- NOTE | 2024-09-08 13:20 | PC.NURSE ---
Notified Dr. Medina pt is complaining of abdominal pain radiating from the left shoulder down to the left side of his abdomen, MD will come see pt. No new orders at this time.
[2024-09-08] MEDS: MORPHINE SULF INJ 10 MG/ML VIAL IVP (13:49)
[2024-09-08 18:47] LABS: Sodium 126 mMol/L (136-145)
[2024-09-08] MEDS: ACETAMINOPHEN 325 MG TABLET 650 MG PO (21:52)
[2024-09-09] VITALS (8 sets, daily range): BP systolic 86–98; BP diastolic 51–64; PULSE 61–89; RESP 16–21; TEMP 36.1–36.8; O2SAT 94–98; BMI 20.9
[2024-09-09 00:43] LABS: Sodium 126 mMol/L (136-145)
[2024-09-09] MEDS: MIDODRINE 5 MG TABLET PO (01:05)
[2024-09-09] MEDS: SODIUM CHLORIDE 1 GM TABLET PO (05:06)
[2024-09-09 06:16] LABS: Basophils # (Auto) 0.0 Thou/mm3 (0.0-0.2); Basophils % (Auto) 1 % (0-2.5); Eosinophils # (Auto) 0.1 Thou/mm3 (0.0-0.5); Eosinophils % (Auto) 2 % (0-10); Hematocrit 31.0 % (41.0-53.0); Hemoglobin 11.3 g/dL (13.5-16.0); Immature Granulocytes Auto 0.03 Thou/mm3 (0.00-0.00); Lymphocytes # (Auto) 0.7 Thou/mm3 (1.0-4.8); Lymphocytes % (Auto) 9 % (10-50); Mean Corpuscular HGB Conc 36.5 g/dl (31.0-37.0); Mean Corpuscular Hemoglobin 33.5 pg (25.0-35.0); Mean Corpuscular Volume 92 fL (80-100); Monocytes # (Auto) 1.1 Thou/mm3 (0.0-0.8); Monocytes % (Auto) 13 % (0-12); Neutrophils # (Auto) 6.0 Thou/mm3 (1.8-7.7); Neutrophils % (Auto) 75 % (37-80); Nucleated Red Blood Cell # 0.00 Thou/mm3 (0.00-0.00); Nucleated Red Blood Cell % 0 /100 WBC (0); RDW Standard Deviation 49.8 fL (35.1-43.9); Red Blood Count 3.37 Miln/mm3 (4.50-5.90); White Blood Count 7.9 Thou/mm3 (3.8-10.6)
[2024-09-09 06:17] LABS: Platelet Count 62 Thou/mm3 (140-440)
[2024-09-09 07:21] LABS: Alanine Aminotransferase 37 U/L (10-49); Albumin, Serum 2.5 gm/dL (3.5-5.0); Albumin/Globulin Ratio 1.0 (1.2-2.2); Alkaline Phosphatase 91 U/L (46-116); Anion Gap 9 (7-16); Aspartate Amino Transferase 49 U/L (0-34); BUN/Creatinine Ratio 20 Ratio (12-20); Bilirubin,Total 4.3 mg/dL (0.3-1.2); Blood Urea Nitrogen 16 mg/dL (9-23); Calcium 7.7 mg/dL (8.3-10.6); Calcium (Corrected) 8.9 mg/dL (8.5-10.1); Carbon Dioxide 21.6 mMol/L (20.0-31.0); Chloride 96 mMol/L (98-107); Creatinine (Component) 0.8 mg/dL (0.6-1.3); Estimated Creatinine Clearance 112.3 mL/min (>60); Globulin 2.6 gm/dL (2.3-3.5); Glucose 89 mg/dL (74-106); Magnesium 1.9 mg/dL (1.6-2.6); Osmolality,Calculated 255 (275-295); Phosphorous 4.1 mg/dL (2.4-5.1); Potassium 4.6 mMol/L (3.4-5.1); Sodium 127 mMol/L (136-145); Total Protein 5.1 gm/dL (5.7-8.2); eGFR > 60 See Note
[2024-09-09] MEDS: SPIRONOLACTONE 25 MG TABLET 100 MG PO (08:36)
[2024-09-09] MEDS: THIAMINE 100 MG TABLET PO (08:37)
[2024-09-09] MEDS: FOLIC ACID 1 MG TABLET PO (08:37)
[2024-09-09] MEDS: PANTOPRAZOLE 40 MG TABLET PO (08:37)
--- NOTE | 2024-09-09 08:58 | PD.RESCONSUL ---
HPI Data of Consult Requesting Physician: Vicente Lima MD Admitting Provider: Charan Montana MD Attending Provider: Vicente Lima MD Primary Care Provider: Talha Nation MD Consult Narrative cc:: cc: Vicente Lima MD Exam Vital Signs Temp Pulse Resp BP Pulse Ox O2 Del Method 97.0 F 72 17 96/58 L 98 Room Air 09/09/24 07:57 09/09/24 08:36 09/09/24 07:57 09/09/24 08:36 09/09/24 07:57 09/09/24 07:57 Results Labs 09/09/24 05:04 09/09/24 05:04 Labs: Short CBC 09/09/24 Range/Units 05:04 WBC 7.9 (3.8-10.6) Thou/mm3 Hgb 11.3 L (13.5-16.0) g/dL Hct 31.0 L (41.0-53.0) % Plt Count 62 L (140-440) Thou/mm3 BMP 09/08/24 09/08/24 09/09/24 12:46 18:21 00:25 Sodium 124 L 126 L 126 L Potassium Chloride Carbon Dioxide BUN Creatinine Glucose Calcium 09/09/24 05:04 Sodium 127 L Potassium 4.6 Chloride 96 L Carbon Dioxide 21.6 BUN 16 Creatinine 0.8 Glucose 89 Calcium 7.7 L Liver Function 09/09/24 Range/Units 05:04 Total Bilirubin 4.3 H (0.3-1.2) mg/dL AST 49 H (0-34) U/L ALT 37 (10-49) U/L Alkaline Phosphatase 91 (46-116) U/L Albumin 2.5 L (3.5-5.0) gm/dL Quality Measures Quality Measures VTE prophylaxis Medications Home Medications and Allergies Home Medications ?Medication ?Instructions ?Recorded ?Confirmed ?Type folic acid 1 mg tablet 1 mg PO QDAY 09/06/24 09/06/24 History lactulose 10 gram/15 mL oral 30 ml PO BID 09/06/24 09/06/24 History solution polyethylene glycol 3350 17 17 g PO DAILY 09/06/24 09/06/24 History gram/dose oral powder rifaximin 550 mg tablet 550 mg PO BID 09/06/24 09/06/24 History spironolactone 100 mg tablet 100 mg PO QDAY 09/06/24 09/06/24 History thiamine HCl (vitamin B1) 100 mg 100 mg PO QDAY 09/06/24 09/06/24 History tablet Allergies Allergy/AdvReac Type Severity Reaction Status Date / Time No Known Allergies Allergy Verified 09/05/24 18:02 Visit Medications Acetaminophen (Acetaminophen 325 Mg Tablet) 650 mg PO Q8HR PRN PRN Reason: Pain Scale 1-3 or Fever>100.1 Stop: 10/08/24 21:45 Carvedilol (Carvedilol 3.125 Mg Tablet) 3.125 mg PO BID [facility] Stop: 10/05/24 22:59 Last Admin: 09/06/24 20:27 Dose: 3.125 mg Folic Acid (Folic Acid 1 Mg Tablet) 1 mg PO QDAY [facility] Stop: 10/06/24 14:29 Last Admin: 09/09/24 08:37 Dose: 1 mg Lactulose (Lactulose Syrup 20 Gm/30 Ml Udc) 20 gm PO TID [facility]; Protocol Stop: 10/09/24 07:59 Last Admin: 09/09/24 08:35 Dose: Not Given Midodrine (Midodrine 5 Mg Tablet) 5 mg PO TID PRN PRN Reason: Hypotension Stop: 10/06/24 13:59 Last Admin: 09/09/24 01:05 Dose: 5 mg Morphine Sulfate (Morphine Sulf Inj 10 Mg/Ml Vial) 1 mg IVP Q6HR PRN PRN Reason: PAIN SCALE 4-10(Mod-Sev Stop: 09/11/24 18:47 Last Admin: 09/08/24 13:49 Dose: 1 mg Ondansetron HCl (Ondansetron Inj 2 Mg/Ml Inj 2 Ml) 4 mg IVP Q6H PRN; Protocol PRN Reason: NAUSEA OR VOMITING Stop: 10/05/24 22:35 Last Admin: 09/06/24 17:33 Dose: 4 mg Pantoprazole Sodium (Pantoprazole 40 Mg Tablet) 40 mg PO BID [facility] Stop: 10/08/24 08:59 Last Admin: 09/09/24 08:37 Dose: 40 mg Rifaximin (Rifaximin 550 Mg Tablet) 550 mg PO BID [facility] Stop: 09/13/24 20:59 Last Admin: 09/09/24 08:37 Dose: 550 mg Sennosides (Senna Tablet) 1 tab PO QDAY PRN; Protocol PRN Reason: constipation Stop: 10/05/24 22:35 Sodium Chloride (Sodium Chloride 1 Gm Tablet) 1 gm PO TID [facility] Stop: 10/08/24 13:59 Last Admin: 09/09/24 05:06 Dose: 1 gm Spironolactone (Spironolactone 25 Mg Tablet) 100 mg PO QDAY [facility] Stop: 10/09/24 08:59 Last Admin: 09/09/24 08:36 Dose: 100 mg Thiamine HCl (Thiamine 100 Mg Tablet) 100 mg PO QDAY [facility] Stop: 10/06/24 14:29 Last Admin: 09/09/24 08:37 Dose: 100 mg Discontinued Medications Acetaminophen (Acetaminophen 325 Mg Tablet) 650 mg PO Q6H PRN PRN Reason: PAIN SCALE 1-3 (mild Stop: 10/05/24 22:35 Acetaminophen (Acetaminophen 325 Mg Tablet) 650 mg PO Q6H PRN PRN Reason: Pain Scale 1-3 or Fever>100.1 Stop: 10/05/24 22:35 Last Admin: 09/08/24 21:52 Dose: 650 mg Furosemide (Furosemide Inj 10 Mg/Ml 4ml Vial) 40 mg IVP QDAY [facility] Stop: 10/06/24 08:59 Last Admin: 09/06/24 08:10 Dose: 40 mg Sodium Chloride (Ns) 1,000 mls @ 999 mls/hr IV .Q1H1M ONE Stop: 09/05/24 19:55 Last Infusion: 09/05/24 22:34 Dose: Infused Ceftriaxone Sodium 2 gm/ (Sodium Chloride) 50 mls @ 100 mls/hr IV HS [facility] Stop: 09/13/24 20:59 Ceftriaxone Sodium 2 gm/ (Sodium Chloride) 50 mls @ 100 mls/hr IV X1 ONE Stop: 09/05/24 23:29 Last Infusion: 09/05/24 23:55 Dose: Infused Magnesium Sulfate (Magnesium Sulfate Ivpb) 4 gm in 50 mls @ 12.5 mls/hr IV X1 ONE Stop: 09/06/24 02:56 Last Admin: 09/05/24 23:27 Dose: 12.5 mls/hr Sodium Chloride (Ns) 1,000 mls @ 150 mls/hr IV .Q6H40M [facility] Stop: 10/05/24 23:56 Last Infusion: 09/06/24 04:21 Dose: 0 mls/hr Sodium Chloride 100 ml/ IV (Miscellaneous Supplies) 100 mls @ 25 mls/hr IV X1 ONE Stop: 09/06/24 07:50 Last Admin: 09/08/24 15:26 Dose: Not Given Sodium Chloride 500 ml/ IV (Miscellaneous Supplies) 500 mls @ 25 mls/hr IV X1 ONE Stop: 09/07/24 00:11 Last Infusion: 09/06/24 07:55 Dose: 0 mls/hr Ceftriaxone Sodium/Dextrose (Rocephin/D5w 1gm Iv Premix) 1 gm in 50 mls @ 100 mls/hr IV HS [facility] Stop: 09/13/24 20:59 Sodium Chloride 500 ml/ IV (Miscellaneous Supplies) 500 mls @ 35 mls/hr IV X1 ONE Stop: 09/06/24 22:47 Last Admin: 09/06/24 09:45 Dose: 35 mls/hr Albumin Human (Albuminar-25 Ivpb) 25 gm in 100 mls @ 100 mls/hr IV QDAY [facility] Stop: 09/08/24 09:59 Last Infusion: 09/08/24 10:40 Dose: Infused Magnesium Sulfate (Magnesium Sulfate Ivpb) 4 gm in 50 mls @ 12.5 mls/hr IV X1 ONE Stop: 09/08/24 10:53 Last Infusion: 09/08/24 13:40 Dose: Infused Sodium Chloride 500 ml/ IV (Miscellaneous Supplies) 500 mls @ 35 mls/hr IV X1 ONE Stop: 09/08/24 21:48 Last Admin: 09/08/24 08:21 Dose: Not Given Lactulose (Lactulose Syrup 20 Gm/30 Ml Udc) 30 gm PO BID [facility]; Protocol Stop: 10/05/24 22:59 Last Admin: 09/07/24 08:06 Dose: 30 gm Lactulose (Lactulose Syrup 20 Gm/30 Ml Udc) 30 gm PO TID [facility]; Protocol Stop: 10/07/24 13:59 Lactulose (Lactulose Syrup 20 Gm/30 Ml Udc) 30 gm PO BID [facility]; Protocol Stop: 10/07/24 20:59 Last Admin: 09/08/24 21:11 Dose: 30 gm Lidocaine (Lidocaine 5% 1 Patch) 1 patch TOP X1 ONE Stop: 09/06/24 18:51 Last Admin: 09/06/24 20:26 Dose: 1 patch Midodrine (Midodrine 2.5 Mg Tablet) 2.5 mg PO TID PRN PRN Reason: Hypotension Stop: 10/06/24 13:59 Last Admin: 09/06/24 11:22 Dose: 2.5 mg Pantoprazole Sodium (Pantoprazole Inj 40 Mg Vial) 40 mg IVP BID [facility] Stop: 10/05/24 22:59 Last Admin: 09/07/24 21:29 Dose: 40 mg Sodium Chloride (Sodium Chloride 1 Gm Tablet) 1 gm PO BID [facility] Stop: 10/07/24 08:59 Last Admin: 09/07/24 21:29 Dose: 1 gm Sodium Chloride (Sodium Chloride 1 Gm Tablet) 1 gm PO X1 ONE Stop: 09/08/24 08:46 Last Admin: 09/08/24 09:40 Dose: 1 gm Sodium Chloride (Sodium Chloride 1 Gm Tablet) 1 gm PO X1 ONE Stop: 09/08/24 12:09 Last Admin: 09/08/24 12:56 Dose: 1 gm Tramadol HCl (Tramadol Hcl 50 Mg Tablet) 50 mg PO Q6HR PRN PRN Reason: Pain Scale 7-10 (Moderate Stop: 09/10/24 22:35 Last Admin: 09/06/24 17:33 Dose: 50 mg
--- NOTE | 2024-09-09 09:41 | ESPR_ITS ---
Documentation for date of: 09/09/24 Subjective Subjective Interval history: Chidi Anderson is a 39-year-old male with a PMH of hepatic cirrhosis, ascites, and esophageal varices status post endoscopic band ligation who presents today with generalized weakness. Of note, patient was recently seen in the ED on 08/10/24 for ascites for which he received paracentesis. On admission, patient's stated, who was present at the time of interview, patient started feeling weak, tired, and sleepy starting 15 days ago. She says that he has recently been so fatigued that he cannot get out of bed. 2 days ago, the patient was seen by his PCP where it was found that his sodium level was 113 and patient was urged to seek treatment at the hospital. Besides generalized weakness, patient also endorses longstanding right upper quadrant abdominal pain and generalized body ache. He denies any recent travel history, sick contacts, or current pain outside of the abdominal pain. This morning patient was seen and examined on the floors with at the bedside. Patient states he came to the hospital after his PCP saw his sodium levels were low. In addition to previously report history above, patient states he stopped drinking alcohol in December 2023. States he was diagnosed with Cirrhosis in February 2024. Patient states he is feeling okay, endorses some weakness still along with some RUQ pain. Patient denies personal/family of kidney disease. Patient denies any new complaints/concerns. Patient denies fever, chest pain, shortness of breath. ED Course: Vitals showed: BP 104/66 HR 76 RR 18 Temp 97.9 SpO2 95% on room air CBC showed low Hgb 12.6 (MCV 89, RDW 46.0), and low platelet count 99. Coagulation panel showed prolonged PTT 16.9, and high INR 1.6. CMP showed marked hyponatremia 121, marked hypochloremia 87, low calculated osmolality 243, normal corrected calcium 8.9, hypomagnesemia 1.4, elevated total bilirubin 3.8, elevated AST 84 and ALT 52, elevated alkaline phosphatase 133, high ammonia 53, and elevated amylase 136 and lipase 101. UA, UDS, and ascitic fluid analysis were negative. Imaging: EKG showed sinus rhythm with borderline left axis deviation. In the ED, patient was given 1 L normal saline bolus, IV ceftriaxone, and magnesium. Patient was admitted along with consult to nephrology for the work-up and management of symptomatic hyponatremia. 09/07/2024: No acute events overnight. Patient seen and examined at bedside with present. Vitals and labs reviewed. Patient states abdominal pain is feeling better this morning. Patient denies any complaints/concerns. Patient denies fever, chest pain, shortness of breath. Na 125 this morning. 09/08/2024:No acute events overnight. Patient had 4L taken out from paracentesis yesterday. Patient seen and examined at bedside with present. Vitals and labs reviewed. Patient was walking around the floors today. Patient says he is doing better. Patient denies any complaints/concerns. Patient denies fever, chest pain, abdominal pain, shortness of breath. Na stable at 124. 09/09/2024: No acute events overnight. Patient seen and examined at bedside. Vitals and labs were reviewed. Pt denies fever, chest pain, shortness of breath. Na 127 today, plan to discharge on salt tabs and aldactone, and follow up with mali in 1-2 weeks. Exam Vital Signs Temp Pulse Resp BP Pulse Ox O2 Del Method 97.0 F 72 17 96/58 L 98 Room Air 09/09/24 07:57 09/09/24 08:36 09/09/24 07:57 09/09/24 08:36 09/09/24 07:57 09/09/24 07:57 Narrative Exam General: Awake and in no acute distress. Conversational and non-toxic appearing. HEENT: Normocephalic, atraumatic, mucous membranes moist. Heart: Regular rate and rhythm, normal S1 and S2, no murmurs. Lungs: Clear to auscultation with no wheezing or crackles. Abdomen: Soft, non-tender. Distended, positive bowel sounds. ?No guarding or rebound tenderness. Neurologic: Alert and oriented x3, no gross neurological deficit, and patient able to move all 4 extremities. Extremities: trace edema Skin: No rash or ecchymoses. Objective Labs 09/09/24 05:04 09/09/24 05:04 Labs: Laboratory Results - last 24 hr 09/08/24 09/08/24 09/09/24 12:46 18:21 00:25 WBC RBC Hgb Hct MCV MCH MCHC RDW Std Deviation Plt Count Neut % (Auto) Lymph % (Auto) Greer % (Auto) Eos % (Auto) Baso % (Auto) Neut # (Auto) Lymph # (Auto) Greer # (Auto) Eos # (Auto) Baso # (Auto) Immature Gran # (Auto) Absolute Nucleated RBC Immature Gran % Nucleated RBC % Sodium 124 L 126 L 126 L Potassium Chloride Carbon Dioxide Anion Gap BUN Creatinine Estim Creat Clear Calc eGFR BUN/Creatinine Ratio Glucose Calculated Osmolality Calcium Corrected Calcium Phosphorus Magnesium Total Bilirubin AST ALT Alkaline Phosphatase Total Protein Albumin Globulin Albumin/Globulin Ratio 09/09/24 05:04 WBC 7.9 RBC 3.37 L Hgb 11.3 L Hct 31.0 L MCV 92 MCH 33.5 MCHC 36.5 RDW Std Deviation 49.8 H Plt Count 62 L Neut % (Auto) 75 Lymph % (Auto) 9 L Greer % (Auto) 13 H Eos % (Auto) 2 Baso % (Auto) 1 Neut # (Auto) 6.0 Lymph # (Auto) 0.7 L Greer # (Auto) 1.1 H Eos # (Auto) 0.1 Baso # (Auto) 0.0 Immature Gran # (Auto) 0.03 H Absolute Nucleated RBC 0.00 Immature Gran % 0 Nucleated RBC % 0 Sodium 127 L Potassium 4.6 Chloride 96 L Carbon Dioxide 21.6 Anion Gap 9 BUN 16 Creatinine 0.8 Estim Creat Clear Calc 112.3 eGFR > 60 BUN/Creatinine Ratio 20 Glucose 89 Calculated Osmolality 255 L Calcium 7.7 L Corrected Calcium 8.9 Phosphorus 4.1 Magnesium 1.9 Total Bilirubin 4.3 H AST 49 H ALT 37 Alkaline Phosphatase 91 Total Protein 5.1 L Albumin 2.5 L Globulin 2.6 Albumin/Globulin Ratio 1.0 L Quality Measures Quality Measures VTE prophylaxis Assessment & Plan Assessment Current Active Medications: Generic Name Dose Route Start Last Admin Trade Name Freq PRN Reason Stop Dose Admin Acetaminophen 650 mg 09/09/24 07:40 Acetaminophen 325 Mg Tablet PO 10/08/24 21:45 Q8HR PRN Pain Scale 1-3 or Fever>100.1 Carvedilol 3.125 mg 09/05/24 23:00 09/06/24 20:27 Carvedilol 3.125 Mg Tablet PO 10/05/24 22:59 3.125 mg BID [facility] Administration Folic Acid 1 mg 09/06/24 14:30 09/09/24 08:37 Folic Acid 1 Mg Tablet PO 10/06/24 14:29 1 mg QDAY [facility] Administration Lactulose 20 gm 09/09/24 08:00 09/09/24 08:35 Lactulose Syrup 20 Gm/30 Ml Udc PO 10/09/24 07:59 Not Given TID [facility] Protocol Midodrine 5 mg 09/07/24 07:32 09/09/24 01:05 Midodrine 5 Mg Tablet PO 10/06/24 13:59 5 mg TID PRN Administration Hypotension Morphine Sulfate 1 mg 09/06/24 18:48 09/08/24 13:49 Morphine Sulf Inj 10 Mg/Ml Vial IVP 09/11/24 18:47 1 mg Q6HR PRN Administration PAIN SCALE 4-10(Mod-Sev Ondansetron HCl 4 mg 09/05/24 22:36 09/06/24 17:33 Ondansetron Inj 2 Mg/Ml Inj 2 Ml IVP 10/05/24 22:35 4 mg Q6H PRN Administration NAUSEA OR VOMITING Protocol Pantoprazole Sodium 40 mg 09/08/24 09:00 09/09/24 08:37 Pantoprazole 40 Mg Tablet PO 10/08/24 08:59 40 mg BID [facility] Administration Rifaximin 550 mg 09/06/24 21:00 09/09/24 08:37 Rifaximin 550 Mg Tablet PO 09/13/24 20:59 550 mg BID [facility] Administration Sennosides 1 tab 09/05/24 22:36 Senna Tablet PO 10/05/24 22:35 QDAY PRN constipation Protocol Sodium Chloride 1 gm 09/08/24 14:00 09/09/24 05:06 Sodium Chloride 1 Gm Tablet PO 10/08/24 13:59 1 gm TID [facility] Administration Spironolactone 100 mg 09/09/24 09:00 09/09/24 08:36 Spironolactone 25 Mg Tablet PO 10/09/24 08:59 100 mg QDAY [facility] Administration Thiamine HCl 100 mg 09/06/24 14:30 09/09/24 08:37 Thiamine 100 Mg Tablet PO 10/06/24 14:29 100 mg QDAY [facility] Administration Plan Chidi Anderson is a 39-year-old male with a PMH of hepatic cirrhosis, ascites, and esophageal varices status post endoscopic band ligation who presents today with generalized weakness. Admission along with consult to nephrology for the work-up and management of symptomatic hyponatremia. #symptomatic hypochloremic hypo-osmolar Hyponatremia- resolved Suspecting due to combination of poor oral intake, diuretic use, decrease in effective circulating volume (3rd spacing) from splanchnic vasodilation due to cirrhosis. Patient stopped drinking alcohol in December 2023. Diagnosed with Cirrhosis in February 2024. Volume status: ascitic abdomen (4L out from paracentesis 09/07), extremities without edema. Admission labs: Na 121, Chloride 87, Osmolality 243 Plan: -Cont 1 gm Salt tablet TID. -d/c with spirinolactone 100 mg PO QD on discharge based on BP (holding today due to soft BP) -Follow up with Dr. Milner outpatient in 1-2weeks. -Gave 500 cc of 3% hypertonic saline at 35 ml/hr (09/06). Stop for now. 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 Cazares. Note reviewed, agree with findings and recommendations. Plan of care discussed with at bedside Patient admitted with weakness and noted to have symptomatic hyponatremia. Was started on 3% hypertonic saline. History of end-stage liver disease with ascites needing paracentesis. 09/09/2024 Sodium 126-patient can be discharged on salt tablets twice daily. Patient had large-volume paracentesis and 4 L was tapped . Clinically seems to be stable. Resume Aldactone 100 mg p.o. daily. Renal dick stable for discharge. Follow-up with me in 1 to 2 weeks
[2024-09-09 09:52] LABS: Slide Review Platelets confirmed
--- NOTE | 2024-09-09 10:37 | PC.NURSE ---
Spoke with Dr. Mendes. Patient is okay to be discharged with Na level of 127. Recommended by plant tender, Dr. Milner, will f/u outpatient.
--- NOTE | 2024-09-09 10:52 | PC.SS ---
Follow up note: SS met with pt and mom and provided pt with [facility] [employer] [facility]. Pt states he has not consumed alcohol in months (around 7 months). Pt will return home upon dc.
--- NOTE | 2024-09-09 15:41 | ESDS_ITS ---
<Statement entered by Annette Mcfarland MD - 09/10/24 13:20> I agree on the discharge plan on this note as documented by resident Glo Mendes PGY1. Case discussed with attending Dr. Lima. Annette Mcfarland MD PGY-2 Planned Discharge Date 09/09/24 DS: Providers Provider Date of admission: 09/05/24 22:31 Primary care physician: Talha Nation MD Admitting Provider: Charan Montana MD Attending Provider on Admission: Vicente Lima MD Consults: 09/06/24 07:38 Consult to Nephrology Routine Comment: Consulting Provider: Lily Milner 09/06/24 10:14 Referral Registered Dietitian Urgent Comment: Attending Provider on DC: Vicente Lima MD Discharging Provider: Vicente Lima MD DS: Diagnosis Problem List Completed Was Problem List Reviewed/Reconciled?: Yes Hospital Course Hospital Course Hospital course: Summary: Chidi Anderson is a 39-year-old male with past medical history significant for h epatic cirrhosis with ascites and esophageal varices status post banding (02/2024), all secondary to alcohol abuse who presented to [facility] on 09/06 for generalized weakness, admitted for symptomatic hyponatremia of 119. Hyponatremia was treated with hypertonic saline, and salt tablets, increasing sodium to 127 on discharge with resolution of weakness. Patient received 2 paracentesis, peritoneal fluid was transudative, no organisms seen on culture, and cytology showed no malignancy. Patient had soft blood pressures throughout hospital stay especially during paracentesis and will be discharged on midodrine. Patient is stable and ready to be discharged. Imaging: Abdominal ultrasound: Gallbladder sludge, cirrhosis, moderate ascites CTAP: Bibasilar pneumonia, moderate left pleural effusion, cirrhosis with splenomegaly, esophageal and perigastric varices, no prominent ascites, no bowel obstruction Discharge Recommendations: - Please take all medications as prescribed - START midodrine 10 mg three times daily, hold if SBP >120 - START salt tablets 1 g three times a day - HOLD Lasix due to low blood pressure - Continue pantopraxole 40 mg daily, polyethlyne glycol, rifamixin, spironolactone 100 mg daily, and thiamine - Please follow up with your PCP, guinea pig breeder and crisis worker within one week of discharge - If your symptoms worsen, please seek immediate medical attention and return to your nearest emergency room. - If you do not have a PCP, you may follow up at the [facility] at [address], [place] [address], Hospital Diagnoses: #Acute decompensated alcohol cirrhosis with ascites #History of Esophageal Varices s/p banding 03/11/2024 #History of alcohol use #Symptomatic hyponatremia, hypervolemia, hypoosmotic, resolved 2/2 cirrhosis #General Weakness, resolved #Normocytic anemia #Thrombocytopenia #Hypotension #History of hypertension Status at Discharge Cognitive/behavioral status at discharge: Stable Overall status at discharge: patient is back to baseline Time Spent with Patient Time attestation: Total time spent providing and/or coordinating discharge services: 34 min Time spent: Greater than 30 minutes Exam Vital Signs Temp Pulse Resp BP Pulse Ox O2 Del Method 98.2 F 61 21 H 98/64 95 Room Air 09/09/24 12:40 09/09/24 12:40 09/09/24 12:40 09/09/24 12:40 09/09/24 12:40 09/09/24 12:40 Narrative Exam General: Awake and in no acute distress. Conversational and non-toxic appearing. Cachetic male, lying up in bed. HEENT: Normocephalic, atraumatic, mucous membranes moist. Heart: Regular rate and rhythm, normal S1 and S2, no murmurs. Lungs: Clear to auscultation with no wheezing or crackles. Abdomen: Soft, distended, nontender, positive bowel sounds. Mild ascites. No guarding or rebound tenderness. Paracentesis site intact, no leaking fluid. Neurologic: Alert and oriented x3, no gross neurological deficit, and patient able to move all 4 extremities. No asterixis observed. Extremities: No edema. Skin: No rash or ecchymoses. Discharge Plan Plan Patient Disposition: HOME (Self Care) Patient condition on transfer: Stable Care Plan Goals: Start Midodrine 10mg TID, hold if SBP more than 120. Continue salt tablets three times a day. Hold Lasix your blood pressure is low, continue spironolactone. Follow up with guinea pig breeder in 1 week, repeat CMP. Follow up with crisis worker in 1 week. Follow-up with PCP in 1-2 weeks, if you do not have a PCP you can follow up at the [facility] Call [phone] to make an appointment Address: [facility], [address], [address], [place], [address] Return to ED if symptoms return or worsen. Prescriptions/Referrals Prescriptions/Med Rec: New midodrine 10 mg tablet 10 mg PO TID PRN (Reason: Hypotension) 30 Days Qty: 90 0RF Rx Instructions: Hold if SBP more than 120 sodium chloride 1,000 mg Tablet,Soluble 1,000 mg PO TID 30 Days Qty: 90 0RF Continued folic acid 1 mg tablet 1 mg PO QDAY Patient Comments: TAKE 1 TABLET BY MOUTH DAILY lactulose 10 gram/15 mL solution 30 ml PO BID Patient Comments: TAKE 30 ML BY MOUTH TWICE DAILY spironolactone 100 mg tablet 100 mg PO QDAY thiamine HCl (vitamin B1) 100 mg tablet 100 mg PO QDAY Patient Comments: TAKE 1 TABLET BY MOUTH EVERY DAY polyethylene glycol 3350 17 gram/dose powder 17 g PO DAILY Patient Comments: DISSOLVE 17 GRAMS DIRECTED AND TAKE ORALLY DAILY DIRECTED rifaximin 550 mg tablet 550 mg PO BID pantoprazole 40 mg tablet,delayed release (DR/EC) 40 mg PO QDAY Qty: 30 0RF Held furosemide [Lasix] 40 mg tablet 40 mg PO QDAY Qty: 30 0RF Hold Instructions: Resume on 09/16/24. Follow up with PCP Referrals: Talha Nation MD [Primary Care Provider] - Lily Milner MD [Physician] - Outpatient Orders (i.e. Home Health, Labs, Imaging): Comprehensive Metabolic Panel (Routine) Timeframe: 2 Weeks Location: Determined by Patient Ordered By: Annette Mcfarland Patient/Caregiver Discharge Instructions Discharge Activity: activity as tolerated Education Materials: Treating Cirrhosis, Understanding Cirrhosis, Hyponatremia Dc, ED Ascites Print Language: Ethiopian Stand Alone Forms: Nicolette Award Info., Patient Portal Info Letter Discharge Order Discharge Orders: Discharge (Routine); Ordered 09/09/24 Ordered By: Annette Mcfarland Quality Discharge Quality Measures VTE prophylaxis Attestestation Attestation I attest that I was physically present for the evaluation, physical examination, lab and imaging review of the patient with the residents. I discussed the case with the residents and agree with the findings and plans of care as documented above. Vicente Lima MD
== END 2024-09-09 13:15 | disposition home or self-care (01) | DRG 280 ==
LOC: SERX 21:19 → SERHOLD 23:00 → S2NX 09-06 02:34
PROVIDERS: Physician Assistant; Admitting Provider Internal Medicine; Emergency Provider Emergency Medicine; PCP Family Medicine; Visit Provider Student in an Organized Health Care Education/Training Program
DX: K70.31 Alcoholic cirrhosis of liver with ascites (principal); E87.1 Hypo-osmolality and hyponatremia; K76.6 Portal hypertension; D64.9 Anemia, unspecified; E83.42 Hypomagnesemia; E87.70 Fluid overload, unspecified; E87.8 Other disorders of electrolyte and fluid balance, not elsewhere classified; I10 Essential (primary) hypertension; D69.59 Other secondary thrombocytopenia; J90 Pleural effusion, not elsewhere classified; F10.10 Alcohol abuse, uncomplicated; I85.10 Secondary esophageal varices without bleeding; J18.9 Pneumonia, unspecified organism; K72.10 Chronic hepatic failure without coma; Z76.82 Awaiting organ transplant status; I95.9 Hypotension, unspecified; Z79.899 Other long term (current) drug therapy
CPT/HCPCS: 36415; 74177; 80053; 80307; 81001; 82042; 82140; 82150; 82436; 82570; 82945; 83605; 83615; 83690; 83735; 84100; 84133; 84157; 84295; 84300; 85025; 85610; 85730; 87070; 87075; 87205; 89051; 93005; 96361; 96365; 96375; 99284; A4649; J0696; J1938; J2270; J2405; J2470; J3475; J3490; J7030; J7050; J7131; P9047; Q9967; A9270

== ENCOUNTER 2024-09-10 08:15 | Emergency (ER) | payer MEDICAID, SELFPAY ==
[2024-09-10 08:22] VITALS: BMI 20.9
[2024-09-10 08:24] VITALS: BP 104/70; PULSE 95; RESP 18; TEMP 36.8; O2SAT 96
--- NOTE | 2024-09-10 08:34 | PC.NURSE ---
PT LEFT FROM REGISTRATION, TOLD REGISTRATION HE DID NOT WANT TO STAY FOR TREATMENT.
--- NOTE | 2024-09-10 08:36 | PD.EDRME ---
Rapid Medical Screening Exam RME Arrival date/time: 09/10/24 08:15 39-year-old male with history of cirrhosis and ascites presents to the Emergency Department today for complaints of shortness of breath and abdominal swelling requesting paracentesis Patient to be seen in the main ER for further evaluation initial labs ordered and initial assessment performed Chief Complaint: Back Pain/Injury Vital signs: Vital Signs Temperature 98.2 F 09/10/24 08:24 Pulse Rate 95 09/10/24 08:24 Respiratory Rate 18 09/10/24 08:24 Blood Pressure 104/70 09/10/24 08:24 Pulse Oximetry (%) 96 09/10/24 08:24 Oxygen Delivery Method Room Air 09/10/24 08:24
== END 2024-09-10 08:42 | disposition left against medical advice (07) ==
LOC: SERX 08:32
PROVIDERS: Emergency Provider Nurse Practitioner Primary Care; PCP Family Medicine
DX: R06.02 Shortness of breath (principal); R19.00 Intra-abdominal and pelvic swelling, mass and lump, unspecified site; Z53.29 Procedure and treatment not carried out because of patient's decision for other reasons
CPT/HCPCS: 80053; 85025; 85610; 85730; 99282